=== PATIENT | male | born 1995 | race Caucasian/White ===

== ENCOUNTER 2021-03-11 10:06 | Outpatient (CLI) | payer OTHER, SELFPAY | END 2021-03-11 10:07 | disposition home or self-care (01) | LOC: ANHCOVIDVC 10:06 | DX: Z23 Encounter for immunization (principal) | CPT/HCPCS: 0001A; 91300 ==

== ENCOUNTER 2021-04-10 10:56 | Outpatient (CLI) | payer OTHER, SELFPAY | END 2021-04-10 10:57 | disposition home or self-care (01) | LOC: ANHCOVIDVC 10:57 | DX: Z23 Encounter for immunization (principal) | CPT/HCPCS: 0002A; 91300 ==

== ENCOUNTER 2021-12-06 08:13 | Emergency (ER) | payer OTHER, SELFPAY ==
--- NOTE | 2021-12-06 08:18 | ED.SKABFB ---
HPI - Skin/Abscess/Foreign Bdy General Chief complaint: Skin/Abscess/Foreign Body Stated complaint: rash Time Seen by Provider: 12/06/21 08:30 Source: patient and RN notes reviewed Mode of arrival: ambulatory Limitations: no limitations History of Present Illness HPI narrative: 26-year-old male presents with concern for a rash on his face. He reports a week ago he had an illness about a week ago and had sores in his mouth. Reports the illness has resolved and the sores inside of his mouth have resolved, however he now has scabbed sores with drainage on the outside of his mouth. Reports he has been using A&E ointment without relief. Reports the sores of started to spread and he has 1 on his buddhist. He denies swollen tongue, swollen lips, trouble breathing. MD complaint: rash Related Data Home Medications Medication Instructions Recorded Confirmed buprenorphine-naloxone 1 film SUBLINGUAL DAILY 12/06/21 12/06/21 Allergies Allergy/AdvReac Type Severity Reaction Status Date / Time No Known Allergies Allergy Verified 12/06/21 08:30 Review of Systems Review of Systems: CONSTITUTIONAL: Denies malaise, chills, sweats, or fever. EYES: Denies redness, or discharge. ENT: Denies rhinorrhea, congestion, swollen lips, swollen tongue CARDIOVASCULAR: Denies chest pain, palpitations, or edema. RESPIRATORY: Denies cough or dyspnea. GASTROINTESTINAL: Denies abdominal pain, nausea, vomiting SKIN: Reports rash to the face around the mouth MUSCULOSKELETAL: Denies joint painor myalgia. NEUROLOGIC: Denies headache. All systems reviewed & are unremarkable except as noted in HPI and below PMFSH Comments At time of signature, agree with nursing past medical, surgical, social and family history. There is no relevant family history pertinent to the presenting complaint Exam Narrative: GENERAL: Well-appearing, well-nourished, and in no acute distress. HEAD: Normocephalic, atraumatic. EYES: PERRLA, conjunctivae clear, and EOMI. ENT: Mucous membranes moist. Oropharynx without edema, erythema or lesions. NECK: Supple. No lymphadenopathy CHEST: Clear to auscultation. No respiratory distress. HEART: Regular rate and rhythm. SKIN: Warm, dry. Scattered discrete scabbed lesions with honey colored crust noted below the mouth, one satellite lesion to the right buddhist NEURO: Alert and oriented x3. PSYCH: Normal mood and affect Course Course Emergency Course: Patient is aware of diagnosis, understands and agrees to treatment plan. Anticipatory guidance given. Patient agrees to follow-up as directed and is aware of reasons to seek care at the emergency department. Portions of this record may have been created with voice recognition software Level of Care: Express Care Visit Vital Signs Vital signs: Reviewed. MDM - Skin/Abscess/Foreign Bdy MDM Narrative Medical decision making narrative: Does not appear at this time to be erythema multiforme, bullous, SJS, TEN; no evidence at this time to suggest RMSF, endocarditis or Lyme disease; patient looks well, nontoxic and is tolerating oral intake; no neurologic signs or symptoms; no headache, photophobia or neck pain; afebrile; appropriate for initial outpatient treatment; discussed the importance of follow-up, patient agrees; question, viral exanthema, contact dermatitis, allergic dermatitis, eczema, urticaria, impetigo, herpes. No soft palate or uvula edema, no tongue, lip edema or other mucosal involvement, no respiratory compromise, no stridor, no wheezing, no wheezing, no history of syncope, no hypotension, no nausea, vomiting, or diarrhea. Instructed patient to go to nearest ER immediately for any worsening symptoms including but not limited to: fever, spreading rash, pain, sore throat, headache, dizziness, chest pain, trouble breathing, or any symptoms concerning to the patient. Critical Care Time Critical Care Time Critical Care Time: No Discharge Plan Discharge Clinical Impression: Impetig
[2021-12-06 08:21] VITALS: BP 143/74; PULSE 92; RESP 16; TEMP 35.9; O2SAT 99
[2021-12-06 08:23] VITALS: BP 143/74; PULSE 92; RESP 16; TEMP 35.9; O2SAT 99
== END 2021-12-06 08:30 | disposition home or self-care (01) ==
PROVIDERS: Emergency Provider Nurse Practitioner
DX: L01.00 Impetigo, unspecified (principal)
CPT/HCPCS: 99213; G0463

== ENCOUNTER 2024-07-03 07:34 | Emergency (ER) | payer OTHER, SELFPAY ==
[2024-07-03 07:45] VITALS: BP 129/73; PULSE 95; RESP 14; TEMP 36.8; O2SAT 100
[2024-07-03 08:01] LABS: Basophils Percent Auto 0.4 % (0.2-1.2); Hematocrit 45.7 % (42.0-52.0); Hemoglobin 15.6 g/dL (14.0-18.0); Immature Granulocyte Absolute 0.05 K/mm3 (0.00-0.031); Immature Granulocyte Percent A 0.5 % (0-0.5); Lymphocytes Absolute Auto 0.96 K/mm3 (0.9-3.2); Lymphocytes Percent Auto 9.6 % (18.3-44.2); Mean Corpuscular HGB Conc 34.1 g/dl (32-36); Mean Corpuscular Hemoglobin 30.6 pg (26-34); Mean Corpuscular Volume 89.8 fl (80-100); Mean Platelet Volume 10.5 fl (7.4-10.4); Monocytes Absolute Auto 0.4 K/mm3 (0.1-0.6); Neutrophils Absolute Auto 8.5 K/mm3 (1.3-6.7); Neutrophils Percent Auto 85.5 % (45.5-73.1); Platelet Count Result 341 k/mm3 (150-375); Red Blood Count 5.09 M/mm3 (4.6-6.20); Red Cell Distribution Width 12.8 % (11.5-14.5)
--- NOTE | 2024-07-03 08:05 | ED.NAVMDI ---
HPI - Nausea/Vomiting/Diarrhea General Chief complaint: Nausea/Vomiting/Diarrhea Stated complaint: nausea,vomiting, diarrhea Time Seen by Provider: 07/03/24 08:02 History of Present Illness HPI Narrative: Pt presents with nausea and vomiting and diarrhea. Pt says he has been experiencing this off and on for two years and is seeing Dr Lance a GI doctor for this but has not yet come up with a cause. Pt has had numerous episodes of vomiting and diarrhea over the last three days and is having trouble keeping anything down. Pt denies fever. Related Data Home Medications Medication Instructions Recorded Confirmed buprenorphine 4 mg-naloxone 1 mg 1 film sublingual DAILY 12/06/21 12/06/21 sublingual film Allergies Allergy/AdvReac Type Severity Reaction Status Date / Time No Known Allergies Allergy Verified 07/03/24 08:06 Review of Systems Review of Systems: All systems reviewed & are unremarkable except as noted in HPI and below Exam Const: General: healthy appearing and no acute distress Nutritional Appearance: well nourished Orientation/consciousness: patient oriented x3 Limitations: no limitations HENMT: Mouth: Yes dry mucous membranes Neck: Neck: normal visual inspection Chest: Chest palpation & inspection: normal inspection of the chest Resp: Effort & Inspection: normal respiratory effort Auscultation: clear to auscultation bilaterally Cardio: Rate: regular rate Rhythm: regular rhythm GI: GI Palp: Yes Soft to palpation and No Tenderness to palpation present (GI) Auscultation: Hyperactive bowel sounds present Skin: General skin exam: normal color Rashes: no rashes Wounds: no wounds Neuro: General: patient oriented x3, moves all extremities, no meningeal signs, no focal motor deficits and CN's II-XI intact bilaterally Speech: normal speech Extrem: General: normal to inspection and no clubbing, cyanosis or edema Psych: Mental Status: mental status grossly normal Affect: normal affect Attitude: cooperative Course Vital Signs Vital signs: Vital Signs Temperature 98.3 F 07/03/24 07:45 Pulse Rate 95 07/03/24 07:45 Respiratory Rate 14 07/03/24 07:45 Blood Pressure 129/73 07/03/24 07:45 Pulse Oximetry 100 07/03/24 07:45 Temperature 98.3 F 07/03/24 07:45 Pulse Rate 93 07/03/24 09:54 Respiratory Rate 19 07/03/24 09:54 Blood Pressure 131/79 07/03/24 09:54 Pulse Oximetry 98 07/03/24 09:54 MDM - Nausea/Vomiting/Diarrhea MDM Narrative Medical decision making narrative: will give fluids and check labs and give zofran. not much relief with zofran but did get releif with compazine so will send home on compazine Differential Diagnosis Differential diagnosis: Likely food poisoning, gastroenteritis, dehydration and other (IBS, crohn's UC all possible) Lab Data 07/03/24 07:51 07/03/24 07:51 Labs: Lab Results 07/03/24 07/03/24 Range/Units 07:51 08:14 WBC 10.0 (4.5-10.0) K/mm3 RBC 5.09 (4.6-6.20) M/mm3 Hgb 15.6 (14.0-18.0) g/dL Hct 45.7 (42.0-52.0) % MCV 89.8 (80-100) fl MCH 30.6 (26-34) pg MCHC 34.1 (32-36) g/dl RDW 12.8 (11.5-14.5) % Plt Count 341 (150-375) k/mm3 MPV 10.5 H (7.4-10.4) fl Immature Gran % (Auto) 0.5 (0-0.5) % Neut % (Auto) 85.5 H (45.5-73.1) % Lymph % (Auto) 9.6 L (18.3-44.2) % [place] % (Auto) 4.0 (2.6-8.5) % Eos % (Auto) 0.0 (0-4.4) % Baso % (Auto) 0.4 (0.2-1.2) % Lymph # (Auto) 0.96 (0.9-3.2) K/mm3 [place] # (Auto) 0.4 (0.1-0.6) K/mm3 Eos # (Auto) 0.0 (0-0.3) K/mm3 Baso # (Auto) 0.0 (0.0-0.1) K/mm3 Abs Immat Gran (auto) 0.05 H (0.00-0.031) K/mm3 Absolute Neuts (auto) 8.5 H (1.3-6.7) K/mm3 Absolute Nucleated RBC 0.000 (0.0-0.012) K/mm3 Nucleated RBC % 0.0 (0.0-0.2) % Sodium 138 (137-145) mmol/L Potassium 3.2 L (3.4-5.0) mmol/L Chloride 95 L (98-107) mmol/L Carbon Dioxide 30 (22-30) mmol/L Ani
[2024-07-03 08:13] LABS: Alanine Aminotransferase 47 U/L (6-50); Albumin Level 4.8 g/dL (3.5-5.1); Alkaline Phosphatase 88 U/L (38-126); Anion Gap 13 mmol/L (4-12); Aspartate Amino Transferase 45 U/L (17-59); Bilirubin,Total 0.7 mg/dL (0.2-1.3); Blood Urea Nitrogen 17 mg/dL (9-20); Calcium 9.5 mg/dL (8.4-10.2); Carbon Dioxide 30 mmol/L (22-30); Chloride 95 mmol/L (98-107); Estimated Glomerular Filt Rate > 60; Glucose 116 mg/dL (65-110); Lipase 117 U/L (23-300); Potassium 3.2 mmol/L (3.4-5.0); Sodium 138 mmol/L (137-145)
[2024-07-03] MEDS: SODIUM CHLORIDE 0.9% IV 1,000 ML 999 ML IV CONT (08:15)
[2024-07-03] MEDS: ONDANSETRON INJ 4 MG/2 ML VIAL IV PUSH (08:15)
[2024-07-03 08:36] LABS: Add Urine Microscopic? YES; Appearance Urine Cloudy (Clear); Bacteria Urine None Seen /hpf; Bilirubin Urine Negative (Negative); Blood Urine Negative (Negative); Color Urine Dark Yellow (Yellow); Glucose Urine UA Negative (Negative); Ketones Urine 3+ mg/dL (Negative); Leukocyte Esterase Ur Negative LEU/UL (Negative); Need Manual Microscopic Reviewed; Nitrate Urine Negative (Negative); Non Pathogenic Casts 0-2; Protein Urine 1+ mg/dL (Negative); Specific Grav Ur 1.035 (1.001-1.035); Squamous Epithelial Cell Urine None Seen /hpf (Few); WBC Urine 0-5 /hpf (0-3); pH Urine 6.5 (5.0-9.0)
[2024-07-03] MEDS: PROCHLORPERAZINE EDISYLATE 10 MG/2 ML VIAL IV PUSH (09:01)
[2024-07-03 09:54] VITALS: BP 131/79; PULSE 93; RESP 19; O2SAT 98
== END 2024-07-03 09:56 | disposition home or self-care (01) ==
PROVIDERS: Emergency Provider Emergency Medicine
DX: K52.9 Noninfective gastroenteritis and colitis, unspecified (principal)
CPT/HCPCS: 36415; 80053; 81001; 83690; 85025; 96361; 96374; 96375; 99284; J0780; J2405; J7030

== ENCOUNTER 2024-10-09 22:07 | Observation (INO) | payer OTHER, SELFPAY ==
--- NOTE | ~2024-10-09 | XR_ITS ---
EXAMINATION: XR chest 1V portable DATE: 10/09/2024 23:54 INDICATION: Altered mental status. TECHNIQUE: A single frontal view of the chest was obtained. COMPARISON: Chest 2 views 12/07/2005 FINDINGS: There is no pneumonia, pleural effusion, or pneumothorax. The heart size is normal. IMPRESSION: 1. No acute cardiopulmonary disease. Reviewed, dictated and finalized at location A. SPORT CONDUCTOR
--- NOTE | ~2024-10-09 | CT_ITS ---
EXAMINATION: CT brain wo con DATE: 10/09/2024 23:53 INDICATION: Altered mental status. TECHNIQUE: Computed tomography (CT) of the head was performed without intravenous contrast. The mA wa s adjusted according to patient size. Iterative reconstruction technique was employed. The dose-lengt h product was 681.00 mGy-cm. COMPARISON: Head CT 02/14/2018 FINDINGS: There is no intracranial hemorrhage, acute infarction, or abnormal intracranial mass lesion . The ventricles are normal in size. The orbits are normal. The mastoid air cells are normal. The par anasal sinuses are clear. IMPRESSION: 1. Normal brain. Reviewed, dictated and finalized at location A. TERIA ASSOCIATE IMPRESSION: 1. Normal brain.
[2024-10-09 22:13] VITALS: BP 95/63; PULSE 144; RESP 15; TEMP 37.6; O2SAT 99
--- NOTE | 2024-10-09 22:37 | PC.NURSE ---
Pts parents at bedside, pt and parents both agree that pts symptoms have been present on and off for a few years . Pt has been restless and agitated since Wednesday. Pts mother states he has not slept since Wednesday. Pt says he has had increased sweating and sleep walking.
[2024-10-09 22:41] VITALS: PULSE 124; RESP 22; O2SAT 97
--- NOTE | 2024-10-09 22:44 | ECG_ITS ---
Test Date: 2024-10-09 23:41:26 Measurements Intervals [place] Rate: 120 P: 52 IN: 123 QRS: 55 QRSD: 90 T: 38 QT: 342 QTc: 485 Interpretive Statements SINUS TACHYCARDIA BORDERLINE ST-T WAVE ABNORMALITY- INFERIOR LEADS ABNORMAL ECG No previous ECG available for comparison Electronically Signed On 10-10-2024 05:56:06 [employer] EXAMINER by Zeferino Fagan D.O.
[2024-10-09] MEDS: LORazepam INJ (*CRX) 2 MG/ML VIAL 1 MG IV PUSH (23:02)
[2024-10-09 23:04] LABS: Basophils Absolute Auto 0.1 K/mm3 (0.0-0.1); Basophils Percent Auto 0.7 % (0.2-1.2); Eosinophils Percent Auto 0.2 % (0-4.4); Immature Granulocyte Absolute 0.04 K/mm3 (0.00-0.031); Immature Granulocyte Percent A 0.3 % (0-0.5); Lymphocytes Percent Auto 12.1 % (18.3-44.2); Mean Corpuscular HGB Conc 36.1 g/dl (32-36); Mean Corpuscular Volume 85.7 fl (80-100); Mean Platelet Volume 10.9 fl (7.4-10.4); Monocytes Absolute Auto 1.5 K/mm3 (0.1-0.6); Monocytes Percent Auto 9.7 % (2.6-8.5); Neutrophils Absolute Auto 11.5 K/mm3 (1.3-6.7); Platelet Count Result 290 k/mm3 (150-375); Red Cell Distribution Width 12.5 % (11.5-14.5); White Blood Count 14.9 K/mm3 (4.5-10.0)
[2024-10-09 23:21] LABS: Acetaminophen < 10 ug/mL (10-30); Ethanol < 10 mg/dL (<10); Salicylate < 1.0 mg/dL (2-20)
[2024-10-09] MEDS: HALOPERIDOL LACTATE 5 MG/ML VIAL IM (23:21)
[2024-10-09 23:27] LABS: Alanine Aminotransferase 39 U/L (6-50); Albumin Level 4.7 g/dL (3.5-5.1); Alkaline Phosphatase 122 U/L (38-126); Anion Gap 12 mmol/L (4-12); Aspartate Amino Transferase 85 U/L (17-59); Bilirubin,Total 1.4 mg/dL (0.2-1.3); Blood Urea Nitrogen 20 mg/dL (9-20); Calcium 9.6 mg/dL (8.4-10.2); Carbon Dioxide 27 mmol/L (22-30); Chloride 98 mmol/L (98-107); Estimated CRCL calculation 82 ml/min; Estimated Glomerular Filt Rate > 60; Glucose 54 mg/dL (65-110); Potassium 3.7 mmol/L (3.4-5.0); Sodium 137 mmol/L (137-145)
--- NOTE | 2024-10-09 23:30 | PC.NURSE ---
Pt sedated but is still tachycardic in the 120's, pt legs are also shaking involuntarily. Lian CORRIGAN Notified
--- NOTE | 2024-10-09 23:32 | ED_ITS ---
HPI - Psych General Chief Complaint: Psychiatric Symptoms <AYLEEN Montaño Last Filed: 10/10/24 01:46> Stated Complaint: PSYCHIATRIC EVALUATION <AYLEEN Montaño Last Filed: 10/10/24 01:46> Time Seen by Provider: 10/09/24 22:15 <AYLEEN Montaño Last Filed: 10/10/24 01:46> History of Present Illness HPI Narrative: 29-year-old male presents to the ED from home with parents at bedside for anxiety and difficulty sleeping. Patient's parents assist with history. States the patient is an anxious person and has ?spells? intermittently where he becomes increasingly more agitated, anxious and has difficulty sleeping. He began having the symptoms Wednesday and has been unable to sleep since. Today the symptoms became so significant that the patient came to the ED for further evaluation. He is unable to stop moving. 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 States he has not used in about 5 years. He denies alcohol use. He sees a psychiatrist with chest not and last had medications changed a couple months ago where he had clonidine added on to his regimen. He also was recently started on Lexapro after he discontinued an different anxiety medication (name unknown.) Patient states he has no physical complaints other than feeling sore from constant movement. Patient's mother states that the patient seemed confused this evening which is abnormal. <AYLEEN Montaño Last Filed: 10/10/24 01:46> Related Data Home Medications: Home Medications Medication Instructions Recorded Confirmed buprenorphine 4 mg-naloxone 1 mg 1 film sublingual DAILY 12/06/21 10/10/24 sublingual film clonidine HCl 0.1 mg tablet 0.1 mg PO BID 10/10/24 10/10/24 escitalopram oxalate 10 mg tablet 10 mg PO DAILY 10/10/24 10/10/24 hydroxyzine HCl 50 mg tablet 50 mg PO HS PRN insomnia 10/10/24 10/10/24 <AYLEEN Montaño Last Filed: 10/10/24 01:46> Allergies/Adverse Reactions: Allergies Allergy/AdvReac Type Severity Reaction Status Date / Time gluten AdvReac Diarrhea Verified 10/10/24 01:51 <Ely Miranda PA-C - Last Filed: 10/10/24 01:46> Review of Systems Review of Systems: All systems reviewed & are unremarkable except as noted in HPI and below <Ely Miranda PA-C - Last Filed: 10/10/24 01:46> PMFSH Social History Social History: Social History Smoking status: Current every day smoker Tobacco type: cigarettes and e-cigarettes/vaping Additional smoking assessment comments: no longer uses cigarettes; currently vapes Alcohol intake: never Substance use: former Substance use type: heroin Other substance usage details: fentanyl Spiritual care concerns: No <Ely Miranda PA-C - Last Filed: 10/10/24 01:46> Exam Narrative: GENERAL: Anxious appearing, diffuse akathesia, patient writhin in exam bed, diaphoretic, flushed face HEAD: Normocephalic, atraumatic. EYES: PERRLA and EOMI. ENT: Nares clear, no rhinorrhea or epistaxis. Mucous membranes moist. NECK: Supple. CHEST: Clear to auscultation. No respiratory distress. HEART: Regular rate and rhythm. No murmur heard. Normal peripheral pulses. ABDOMEN: Soft, nontender, nondistended, normal active bowel sounds. EXTREMITIES: Normal range of motion. No edema. Positive clonus bilaterally. Negative Babinski SKIN: Warm, dry, no rash. NEURO: No focal deficits. Alert and oriented x3. Denies SI/HI <Ely Miranda PA-C - Last Filed: 10/10/24 01:46> Course TEXTILES SALES REPRESENTATIVE/PA Physician Supervision For this patient encounter, I reviewed the TEXTILES SALES REPRESENTATIVE or PA documentation, treatment plan, and medical decision making and had [id number] time with this patient. I performed all aspects of the MDM as documented. <Jaymie Beaver MD - Last Filed: 10/10/24 07:24> Vital Signs Vital signs: Vital Signs Temperature 99.7 F H 10/09/24 22:13 Pulse Rate 144 H 10/09/24 22:13 Respiratory Rate 15 10/09/24 22:13 Blood Pressure 95/63 L 10/09/24 22:13 Pulse Oximetry 99 10/09/24 22:13 Oxygen Delivery Room Air 10/09/24 22:13 Temperature 98.6 F 10/10/24 04:00 Pulse Rate 113 H 10/10/24 05:56 Respiratory Rate 24 H 10/10/24 04:00 Blood Pressure 152/86 H 10/10/24 04:00 Pulse Oximetry 95 10/10/24 04:00 Oxygen Delivery Room Air 10/10/24 04:00 <Ely Miranda PA-C - Last Filed: 10/10/24 01:46> Vital Signs Temperature 99.7 F H 10/09/24 22:13 Pulse Rate 144 H 10/09/24 22:13 Respiratory Rate 15 10/09/24 22:13 Blood Pressure 95/63 L 10/09/24 22:13 Pulse Oximetry 99 10/09/24 22:13 Oxygen Delivery Room Air 10/09/24 22:13 Temperature 98.6 F 10/10/24 04:00 Pulse Rate 113 H 10/10/24 05:56 Respiratory Rate 24 H 10/10/24 04:00 Blood Pressure 152/86 H 10/10/24 04:00 Pulse Oximetry 95 10/10/24 04:00 Oxygen Delivery Room Air 10/10/24 04:00 <Jaymie Beaver MD - Last Filed: 10/10/24 07:24> MDM - Psych MDM Narrative Medical decision making narrative: 29-year-old male with history of substance abuse, anxiety and depression presents to the ED with family at bedside for anxiety and inability to sleep for the past few days. Patient's vital signs are significant for soft blood pressure 95/63 tachycardia 144 as well as temperature 99.7?. He is very anxious appearing on exam with diffuse akathisia. He is diaphoretic and writhing in the exam bed. The patient is flushed in the face. Denies SI or HI. Denies drug and ETOH use. He was immediately given Ativan without improvement and then was given IM Haldol for which caused him to fall asleep, however he was still having slight movements of his lower extremities. He has positive clonus bilaterally. I am concerned for possible serotonin syndrome vs drug abuse vs ETOH withdrawal. Will obtain lab work, CT brain, chest x-ray urinalysis and plan for admission. Lab work shows leukocytosis of 14.9, no bandemia. Chemistries reveal hypoglycemia of 54. Patient is now asleep in unable to tolerate p.o., he was started on D5 normal saline with improvement of glucose to 234. Chemistries with elevated AST, normal ALT, bilirubin mildly elevated at 1.4. Alk-phos normal. Mag is normal. TSH mildly low at 0.346, reflex T4 WNL. Acetaminophen, salicylate and ETOH within normal limits EKG shows sinus tachycardia with a rate of 120, normal NH interval, normal QRS duration, no ischemic changes. Troponin undetectable. CT brain is unremarkable. Chest x-ray shows no acute cardiopulmonary findings. UDS positive for cannabinoids and amphetamine. CK is elevated to 2368 consistent with rhabdomyolysis. Patient is given another L of fluids. His heart rate has improved to 110 bpm. Temperature has improved. He does meet SIRS criteria with leukocytosis and persistent tachycardia so was started on Zosyn and vancomycin, although no source yet identified. He has received 30mls/kg of fluids. He appears to be more comfortable in bed and is still asleep. Airway remains protected. Presentation likely secondary to amphetamine abuse. Plan admit to the hospitalist for further evaluation and management. Discussed with the hospitalist, Dr. Bettencourt, who agrees the plan for admission. <Ely Miranda PA-C - Last Filed: 10/10/24 01:46> Lab Data Result diagrams: 10/09/24 22:57 10/09/24 22:57 <Ely Miranda PA-C - Last Filed: 10/10/24 01:46> Labs: Lab Results 10/09/24 10/10/24 10/10/24 Range/Units 22:57 00:12 00:24 WBC 14.9 H (4.5-10.0) K/mm3 RBC 4.20 L (4.6-6.20) M/mm3 Hgb 13.0 L (14.0-18.0) g/dL Hct 36.0 L (42.0-52.0) % MCV 85.7 (80-100) fl MCH 31.0 (26-34) pg MCHC 36.1 H (32-36) g/dl RDW 12.5 (11.5-14.5) % Plt Count 290 (150-375) k/mm3 MPV 10.9 H (7.4-10.4) fl Immature Gran % (Auto) 0.3 (0-0.5) % Neut % (Auto) 77.0 H (45.5-73.1) % Lymph % (Auto) 12.1 L (18.3-44.2) % [place] % (Auto) 9.7 H (2.6-8.5) % Eos % (Auto) 0.2 (0-4.4) % Baso % (Auto) 0.7 (0.2-1.2) % Lymph # (Auto) 1.80 (0.9-3.2) K/mm3 [place] # (Auto) 1.5 H (0.1-0.6) K/mm3 Eos # (Auto) 0.0 (0-0.3) K/mm3 Baso # (Auto) 0.1 (0.0-0.1) K/mm3 Abs Immat Gran (auto) 0.04 H (0.00-0.031) K/mm3 Absolute Neuts (auto) 11.5 H (1.3-6.7) K/mm3 Absolute Nucleated RBC 0.000 (0.0-0.012) K/mm3 Nucleated RBC % 0.0 (0.0-0.2) % Sodium 137 (137-145) mmol/L Potassium 3.7 (3.4-5.0) mmol/L Chloride 98 (98-107) mmol/L Carbon Dioxide 27 (22-30) mmol/L Anion Gap 12 (4-12) mmol/L BUN 20 (9-20) mg/dL Creatinine 1.00 (0.7-1.3) mg/dL Estim Creat Clear Calc 82 ml/min Estimated GFR > 60 (59 - ) Glucose 54 L* (65-110) mg/dL POC Capillary Glucose 234 H (65-105) mg/dl Lactic Acid (0.7-2.0) mmol/L Calcium 9.6 (8.4-10.2) mg/dL Magnesium 2.2 (1.6-2.3) mg/dL Total Bilirubin 1.4 H (0.2-1.3) mg/dL AST 85 H (17-59) U/L ALT 39 (6-50) U/L Alkaline Phosphatase 122 (38-126) U/L Total Creatine Kinase 2368 H (55-170) U/L Troponin I < 0.012 (0.000-0.034) ng/mL Total Protein 7.0 (6.3-8.2) g/dL Albumin 4.7 (3.5-5.1) g/dL TSH 0.346 L (0.465-4.680) uIU/mL Free T4 1.24 (0.78-2.19) ng/mL Urine Color Yellow (Yellow) Urine Appearance Cloudy H (Clear) Urine pH 5.5 (5.0-9.0) Ur Specific [place] 1.024 (1.001-1.035) Urine Protein Trace (Negative) mg/dL Urine Glucose (UA) Negative (Negative) mg/dL Urine Ketones 2+ H (Negative) mg/dL Ur Blood (Man) Negative (Negative) Urine Nitrate Negative (Negative) Urine Bilirubin Negative (Negative) Urine Urobilinogen 1.0 (<2.0) mg/dL Add Ur Microanalysis Reviewed Leukocyte Esterase Rfl Negative (Negative) TRINI/UL Urine RBC 0-2 (0-2) /hpf Urine WBC 0-5 (0-3) /hpf Ur Squamous Epith Cells None seen (Few) /hpf Urine Bacteria None seen /hpf Urine Casts 11-20 Salicylates < 1.0 L (2-20) mg/dL Urine Opiates Screen Negative (Negative) Urine Methadone Screen Negative (Negative) Acetaminophen < 10 L (10-30) ug/mL Ur Barbiturates Screen Negative (Negative) Ur Phencyclidine Scrn Negative (Negative) Ur Amphetamine Screen Positive A (Negative) U Benzodiazepines Scrn Negative (Negative) Urine Cocaine Screen Negative (Negative) U Cannabinoids Screen Positive A (Negative) Ethyl Alcohol < 10 (<10) mg/dL 10/10/24 Range/Units 01:08 WBC (4.5-10.0) K/mm3 RBC (4.6-6.20) M/mm3 Hgb (14.0-18.0) g/dL Hct (42.0-52.0) % MCV (80-100) fl MCH (26-34) pg MCHC (32-36) g/dl RDW (11.5-14.5) % Plt Count (150-375) k/mm3 MPV (7.4-10.4) fl Immature Gran % (Auto) (0-0.5) % Neut % (Auto) (45.5-73.1) % Lymph % (Auto) (18.3-44.2) % [place] % (Auto) (2.6-8.5) % Eos % (Auto) (0-4.4) % Baso % (Auto) (0.2-1.2) % Lymph # (Auto) (0.9-3.2) K/mm3 [place] # (Auto) (0.1-0.6) K/mm3 Eos # (Auto) (0-0.3) K/mm3 Baso # (Auto) (0.0-0.1) K/mm3 Abs Immat Gran (auto) (0.00-0.031) K/mm3 Absolute Neuts (auto) (1.3-6.7) K/mm3 Absolute Nucleated RBC (0.0-0.012) K/mm3 Nucleated RBC % (0.0-0.2) % Sodium (137-145) mmol/L Potassium (3.4-5.0) mmol/L Chloride (98-107) mmol/L Carbon Dioxide (22-30) mmol/L Anion Gap (4-12) mmol/L BUN (9-20) mg/dL Creatinine (0.7-1.3) mg/dL Estim Creat Clear Calc ml/min Estimated GFR (59 - ) Glucose (65-110) mg/dL POC Capillary Glucose (65-105) mg/dl Lactic Acid 0.7 (0.7-2.0) mmol/L Calcium (8.4-10.2) mg/dL Magnesium (1.6-2.3) mg/dL Total Bilirubin (0.2-1.3) mg/dL AST (17-59) U/L ALT (6-50) U/L Alkaline Phosphatase (38-126) U/L Total Creatine Kinase (55-170) U/L Troponin I (0.000-0.034) ng/mL Total Protein (6.3-8.2) g/dL Albumin (3.5-5.1) g/dL TSH (0.465-4.680) uIU/mL Free T4 (0.78-2.19) ng/mL Urine Color (Yellow) Urine Appearance (Clear) Urine pH (5.0-9.0) Ur Specific [place] (1.001-1.035) Urine Protein (Negative) mg/dL Urine Glucose (UA) (Negative) mg/dL Urine Ketones (Negative) mg/dL Ur Blood (Man) (Negative) Urine Nitrate (Negative) Urine Bilirubin (Negative) Urine Urobilinogen (<2.0) mg/dL Add Ur Microanalysis Leukocyte Esterase Rfl (Negative) TRINI/UL Urine RBC (0-2) /hpf Urine WBC (0-3) /hpf Ur Squamous Epith Cells (Few) /hpf Urine Bacteria /hpf Urine Casts Salicylates (2-20) mg/dL Urine Opiates Screen (Negative) Urine Methadone Screen (Negative) Acetaminophen (10-30) ug/mL Ur Barbiturates Screen (Negative) Ur Phencyclidine Scrn (Negative) Ur Amphetamine Screen (Negative) U Benzodiazepines Scrn (Negative) Urine Cocaine Screen (Negative) U Cannabinoids Screen (Negative) Ethyl Alcohol (<10) mg/dL <Ely Miranda PA-C - Last Filed: 10/10/24 01:46> Lab Results 10/09/24 10/10/24 10/10/24 Range/Units 22:57 00:12 00:24 WBC 14.9 H (4.5-10.0) K/mm3 RBC 4.20 L (4.6-6.20) M/mm3 Hgb 13.0 L (14.0-18.0) g/dL Hct 36.0 L (42.0-52.0) % MCV 85.7 (80-100) fl MCH 31.0 (26-34) pg MCHC 36.1 H (32-36) g/dl RDW 12.5 (11.5-14.5) % Plt Count 290 (150-375) k/mm3 MPV 10.9 H (7.4-10.4) fl Immature Gran % (Auto) 0.3 (0-0.5) % Neut % (Auto) 77.0 H (45.5-73.1) % Lymph % (Auto) 12.1 L (18.3-44.2) % [place] % (Auto) 9.7 H (2.6-8.5) % Eos % (Auto) 0.2 (0-4.4) % Baso % (Auto) 0.7 (0.2-1.2) % Lymph # (Auto) 1.80 (0.9-3.2) K/mm3 [place] # (Auto) 1.5 H (0.1-0.6) K/mm3 Eos # (Auto) 0.0 (0-0.3) K/mm3 Baso # (Auto) 0.1 (0.0-0.1) K/mm3 Abs Immat Gran (auto) 0.04 H (0.00-0.031) K/mm3 Absolute Neuts (auto) 11.5 H (1.3-6.7) K/mm3 Absolute Nucleated RBC 0.000 (0.0-0.012) K/mm3 Nucleated RBC % 0.0 (0.0-0.2) % Sodium 137 (137-145) mmol/L Potassium 3.7 (3.4-5.0) mmol/L Chloride 98 (98-107) mmol/L Carbon Dioxide 27 (22-30) mmol/L Anion Gap 12 (4-12) mmol/L BUN 20 (9-20) mg/dL Creatinine 1.00 (0.7-1.3) mg/dL Estim Creat Clear Calc 82 ml/min Estimated GFR > 60 (59 - ) Glucose 54 L* (65-110) mg/dL POC Capillary Glucose 234 H (65-105) mg/dl Lactic Acid (0.7-2.0) mmol/L Calcium 9.6 (8.4-10.2) mg/dL Magnesium 2.2 (1.6-2.3) mg/dL Total Bilirubin 1.4 H (0.2-1.3) mg/dL AST 85 H (17-59) U/L ALT 39 (6-50) U/L Alkaline Phosphatase 122 (38-126) U/L Total Creatine Kinase 2368 H (55-170) U/L Troponin I < 0.012 (0.000-0.034) ng/mL Total Protein 7.0 (6.3-8.2) g/dL Albumin 4.7 (3.5-5.1) g/dL TSH 0.346 L (0.465-4.680) uIU/mL Free T4 1.24 (0.78-2.19) ng/mL Urine Color Yellow (Yellow) Urine Appearance Cloudy H (Clear) Urine pH 5.5 (5.0-9.0) Ur Specific [place] 1.024 (1.001-1.035) Urine Protein Trace (Negative) mg/dL Urine Glucose (UA) Negative (Negative) mg/dL Urine Ketones 2+ H (Negative) mg/dL Ur Blood (Man) Negative (Negative) Urine Nitrate Negative (Negative) Urine Bilirubin Negative (Negative) Urine Urobilinogen 1.0 (<2.0) mg/dL Add Ur Microanalysis Reviewed Leukocyte Esterase Rfl Negative (Negative) TRINI/UL Urine RBC 0-2 (0-2) /hpf Urine WBC 0-5 (0-3) /hpf Ur Squamous Epith Cells None seen (Few) /hpf Urine Bacteria None seen /hpf Urine Casts 11-20 Salicylates < 1.0 L (2-20) mg/dL Urine Opiates Screen Negative (Negative) Urine Methadone Screen Negative (Negative) Acetaminophen < 10 L (10-30) ug/mL Ur Barbiturates Screen Negative (Negative) Ur Phencyclidine Scrn Negative (Negative) Ur Amphetamine Screen Positive A (Negative) U Benzodiazepines Scrn Negative (Negative) Urine Cocaine Screen Negative (Negative) U Cannabinoids Screen Positive A (Negative) Ethyl Alcohol < 10 (<10) mg/dL 10/10/24 Range/Units 01:08 WBC (4.5-10.0) K/mm3 RBC (4.6-6.20) M/mm3 Hgb (14.0-18.0) g/dL Hct (42.0-52.0) % MCV (80-100) fl MCH (26-34) pg MCHC (32-36) g/dl RDW (11.5-14.5) % Plt Count (150-375) k/mm3 MPV (7.4-10.4) fl Immature Gran % (Auto) (0-0.5) % Neut % (Auto) (45.5-73.1) % Lymph % (Auto) (18.3-44.2) % [place] % (Auto) (2.6-8.5) % Eos % (Auto) (0-4.4) % Baso % (Auto) (0.2-1.2) % Lymph # (Auto) (0.9-3.2) K/mm3 [place] # (Auto) (0.1-0.6) K/mm3 Eos # (Auto) (0-0.3) K/mm3 Baso # (Auto) (0.0-0.1) K/mm3 Abs Immat Gran (auto) (0.00-0.031) K/mm3 Absolute Neuts (auto) (1.3-6.7) K/mm3 Absolute Nucleated RBC (0.0-0.012) K/mm3 Nucleated RBC % (0.0-0.2) % Sodium (137-145) mmol/L Potassium (3.4-5.0) mmol/L Chloride (98-107) mmol/L Carbon Dioxide (22-30) mmol/L Anion Gap (4-12) mmol/L BUN (9-20) mg/dL Creatinine (0.7-1.3) mg/dL Estim Creat Clear Calc ml/min Estimated GFR (59 - ) Glucose (65-110) mg/dL POC Capillary Glucose (65-105) mg/dl Lactic Acid 0.7 (0.7-2.0) mmol/L Calcium (8.4-10.2) mg/dL Magnesium (1.6-2.3) mg/dL Total Bilirubin (0.2-1.3) mg/dL AST (17-59) U/L ALT (6-50) U/L Alkaline Phosphatase (38-126) U/L Total Creatine Kinase (55-170) U/L Troponin I (0.000-0.034) ng/mL Total Protein (6.3-8.2) g/dL Albumin (3.5-5.1) g/dL TSH (0.465-4.680) uIU/mL Free T4 (0.78-2.19) ng/mL Urine Color (Yellow) Urine Appearance (Clear) Urine pH (5.0-9.0) Ur Specific [place] (1.001-1.035) Urine Protein (Negative) mg/dL Urine Glucose (UA) (Negative) mg/dL Urine Ketones (Negative) mg/dL Ur Blood (Man) (Negative) Urine Nitrate (Negative) Urine Bilirubin (Negative) Urine Urobilinogen (<2.0) mg/dL Add Ur Microanalysis Leukocyte Esterase Rfl (Negative) TRINI/UL Urine RBC (0-2) /hpf Urine WBC (0-3) /hpf Ur Squamous Epith Cells (Few) /hpf Urine Bacteria /hpf Urine Casts Salicylates (2-20) mg/dL Urine Opiates Screen (Negative) Urine Methadone Screen (Negative) Acetaminophen (10-30) ug/mL Ur Barbiturates Screen (Negative) Ur Phencyclidine Scrn (Negative) Ur Amphetamine Screen (Negative) U Benzodiazepines Scrn (Negative) Urine Cocaine Screen (Negative) U Cannabinoids Screen (Negative) Ethyl Alcohol (<10) mg/dL <Jaymie Beaver MD - Last Filed: 10/10/24 07:24> Discharge Plan Discharge Clinical Impression: Marijuana use, Amphetamine abuse Rhabdomyolysis Qualifiers: Rhabdomyolysis type: non-traumatic Qualified Code(s): M62.82 - Rhabdomyolysis <Ely Miranda PA-C - Last Filed: 10/10/24 01:46> Patient Disposition: Still a Patient <Ely Miranda PA-C - Last Filed: 10/10/24 01:46> Condition: Stable <Ely Miranda PA-C - Last Filed: 10/10/24 01:46>
[2024-10-09] MEDS: DEXTROSE 5%/0.9% SOD CHL 1,000 ML 999 ML IV CONT (23:43)
[2024-10-09 23:53] LABS: Thyroid Stimulating Hormone 0.346 uIU/mL (0.465-4.680)
[2024-10-09 23:58] VITALS: BP 123/50; PULSE 118; RESP 13; O2SAT 95
[2024-10-10] VITALS (25 sets, daily range): BP systolic 93–152; BP diastolic 41–86; PULSE 96–144; RESP 12–24; TEMP 36.6–37; O2SAT 95–98; BMI 21.9
[2024-10-10 00:09] LABS: Magnesium 2.2 mg/dL (1.6-2.3)
[2024-10-10 00:17] LABS: Troponin I < 0.012 ng/mL (0.000-0.034)
[2024-10-10 00:26] LABS: Glucose Point of Care 234 mg/dl (65-105)
[2024-10-10] MEDS: SODIUM CHLORIDE 0.9% IV 1,000 ML 999 ML IV CONT (00:32)
[2024-10-10 01:07] LABS: Amphetamine Screen Urine Positive (Negative); Barbiturate Screen Urine Negative (Negative); Benzodiazepines Screen Urine Negative (Negative); Cannabinoid Screen Urine Positive (Negative); Cocaine Screen Urine Negative (Negative); Methadone Screen Urine Negative (Negative); Opiate Screen Urine Negative (Negative); Phencyclidine Screen Urine Negative (Negative)
[2024-10-10] MEDS: PIPERACILLN/TAZ 3.375GM/NS50ML 3.375 GM/50 ML BAG IVPB ×2 (01:11→05:52)
[2024-10-10 01:17] LABS: Creatine Kinase 2368 U/L (55-170)
[2024-10-10 01:25] LABS: Free T4 Free Thyroxine 1.24 ng/mL (0.78-2.19)
[2024-10-10 01:27] LABS: Add Urine Microscopic? YES; Appearance Urine Cloudy (Clear); Bacteria Urine None Seen /hpf; Bilirubin Urine Negative (Negative); Blood Urine Negative (Negative); Color Urine Yellow (Yellow); Glucose Urine UA Negative (Negative); Ketones Urine 2+ mg/dL (Negative); Leukocyte Esterase Ur Negative LEU/UL (Negative); Need Manual Microscopic Reviewed; Nitrate Urine Negative (Negative); Protein Urine Trace mg/dL (Negative); RBC Urine 0-2 /hpf (0-2); Specific Grav Ur 1.024 (1.001-1.035); Squamous Epithelial Cell Urine None Seen /hpf (Few); WBC Urine 0-5 /hpf (0-3); pH Urine 5.5 (5.0-9.0)
[2024-10-10] MEDS: VANCOMYCIN 1,500 MG/NS 500 ML 1,500 MG/500 ML BAG 250 MG IVPB (02:05)
[2024-10-10 02:18] LABS: Lactic Acid Reflex 0.7 mmol/L (0.7-2.0)
[2024-10-10] MEDS: LORazepam INJ (*CRX) 2 MG/ML VIAL 1 MG IV PUSH (03:49)
--- NOTE | 2024-10-10 04:23 | ADMGEN ---
This patient, Patricio Poon, was admitted to IMU Room 202-01. Patient/family oriented to hospital policies and general routines including ID bracelet, bed and alarms, visiting hours, pain management, procedures, bathroom and other care routines, personal items, smoking policy, room service/diet, and visiting hours. Information on how to activate the Rapid Response Team has been discussed. Patient/Family are encouraged to report perceived risks to care and to ask questions if they do not understand what they are told or what they should do.
[2024-10-10] MEDS: SODIUM CHLORIDE 0.9% IV 1,000 ML 150 ML (12:25)
--- NOTE | 2024-10-10 16:55 | P.HP_ITS ---
H&P: HPI History of Present Illness Date/Time: 10/10/24 16:55 Chief Complaint: Anxiety and agitation Narrative: ER-HPI Narrative: 29-year-old male presents to the ED from home with parents at bedside for anxiety and difficulty sleeping. Patient's parents assist with history. States the patient is an anxious person and has ?spells? intermittently where he becomes increasingly more agitated, anxious and has difficulty sleeping. He began having the symptoms Wednesday and has been unable to sleep since. Today the symptoms became so significant that the patient came to the ED for further evaluation. He is unable to stop moving. 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 States he has not used in about 5 years. He denies alcohol use. He sees a psychiatrist with chest not and last had medications changed a couple months ago where he had clonidine added on to his regimen. He also was recently started on Lexapro after he discontinued an different anxiety medication (name unknown.) Patient states he has no physical complaints other than feeling sore from constant movement. Patient's mother states that the patient seemed confused this evening which is abnormal Today patient does admit however urine drug tox is positive for amphetamine, and cannabis, taken few days back but not completely forthcoming, patient is quite apprehensive and agitated, patient is found to have rhabdomyolysis most likely secondary to amphetamine, will continue to hydrate the patient and monitor CK level, and electrolytes, help with withdrawal symptoms patient is on clonidine and lorazepam, patient's for mother and father are present also discussed with them and answered his questions. [facility] Social History Social History Smoking status: Current every day smoker Tobacco type: cigarettes and e-cigarettes/vaping Additional smoking assessment comments: no longer uses cigarettes; currently vapes Alcohol intake: never Substance use: former Substance use type: heroin Other substance usage details: fentanyl Spiritual care concerns: No Meds Home Medications and Allergies Home Medications Medication Instructions Recorded Confirmed Type buprenorphine 4 mg-naloxone 1 mg 1 film sublingual DAILY 12/06/21 10/10/24 History sublingual film clonidine HCl 0.1 mg tablet 0.1 mg PO BID 10/10/24 10/10/24 History escitalopram oxalate 10 mg tablet 10 mg PO DAILY 10/10/24 10/10/24 History hydroxyzine HCl 50 mg tablet 50 mg PO HS PRN insomnia 10/10/24 10/10/24 History Allergies Allergy/AdvReac Type Severity Reaction Status Date / Time gluten AdvReac Diarrhea Verified 10/10/24 01:51 Vital Signs Vital Signs - 24 hr 10/09/24 22:13 10/09/24 22:41 10/10/24 00:36 Temperature 37.6 C H 36.8 C Pulse Rate 144 H 124 H Respiratory Rate 15 22 H Blood Pressure 95/63 L Pulse Oximetry 99 97 Oxygen Delivery Room Air 10/09/24 23:58 10/10/24 00:30 10/10/24 00:31 Temperature Pulse Rate 118 H 107 H 117 H Respiratory Rate 13 12 12 Blood Pressure 123/50 L 101/46 L Pulse Oximetry 95 97 96 Oxygen Delivery 10/10/24 00:45 10/10/24 02:15 10/10/24 02:46 Temperature Pulse Rate 100 96 105 H Respiratory Rate 12 12 16 Blood Pressure 93/45 L 105/53 L 115/84 Pulse Oximetry Oxygen Delivery 10/10/24 03:01 10/10/24 03:51 10/10/24 04:00 Temperature Pulse Rate 106 H 120 H Respiratory Rate 15 22 H Blood Pressure 127/73 108/64 Pulse Oximetry 98 Oxygen Delivery Room Air 10/10/24 04:00 10/10/24 04:00 10/10/24 05:56 Temperature 37.0 C Pulse Rate 113 H 121 H 113 H Respiratory Rate 24 H Blood Pressure 152/86 H Pulse Oximetry 95 Oxygen Delivery 10/10/24 07:28 10/10/24 07:32 10/10/24 09:01 Temperature 36.8 C Pulse Rate 144 H Respiratory Rate 16 Blood Pressure 114/41 L 107/56 L Pulse Oximetry 96 96 Oxygen Delivery Room Air 10/10/24 08:00 10/10/24 08:00 10/10/24 10:00 Temperature Pulse Rate 122 H 122 H Respiratory Rate Blood Pressure Pulse Oximetry Oxygen Delivery Room Air 10/10/24 11:31 10/10/24 12:00 10/10/24 12:00 Temperature 36.8 C Pulse Rate 122 H 118 H Respiratory Rate 16 Blood Pressure 105/51 L Pulse Oximetry 98 Oxygen Delivery Room Air 10/10/24 15:29 Temperature 36.6 C Pulse Rate 128 H Respiratory Rate 20 Blood Pressure 115/59 L Pulse Oximetry 97 Oxygen Delivery Exam Narrative: Patient is comfortable, NAD HEENT: eyes are clear and none icteric LUNGS:CTA HEART: RR S1S2 ABD: BS+, Soft and nontender Lower extremities: no edema SKIN: nonjaundiced Neuro: grossly intact. H&P: Results Labs Labs: Short CBC 10/09/24 Range/Units 22:57 WBC 14.9 H (4.5-10.0) K/mm3 Hgb 13.0 L (14.0-18.0) g/dL Hct 36.0 L (42.0-52.0) % Plt Count 290 (150-375) k/mm3 BMP 10/09/24 22:57 Sodium 137 Potassium 3.7 Chloride 98 Carbon Dioxide 27 BUN 20 Creatinine 1.00 Glucose 54 L* Calcium 9.6 Cardiac Enzymes 10/09/24 Range/Units 22:57 Total Creatine Kinase 2368 H (55-170) U/L Troponin I < 0.012 (0.000-0.034) ng/mL Liver Function 10/09/24 Range/Units 22:57 Total Bilirubin 1.4 H (0.2-1.3) mg/dL AST 85 H (17-59) U/L ALT 39 (6-50) U/L Alkaline Phosphatase 122 (38-126) U/L Albumin 4.7 (3.5-5.1) g/dL Urine 10/10/24 Range/Units 00:24 Urine Color Yellow (Yellow) Urine Appearance Cloudy H (Clear) Urine pH 5.5 (5.0-9.0) Ur Specific Otter 1.024 (1.001-1.035) Urine Protein Trace (Negative) mg/dL Urine Glucose (UA) Negative (Negative) mg/dL Assessment and Plan Assessment and plan (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, uncomplicated Status: Acute (2) Marijuana use: Code(s): F12.90 - Cannabis use, unspecified, uncomplicated Status: Acute (3) Rhabdomyolysis: Qualifiers: Rhabdomyolysis type: non-traumatic Qualified Code(s): M62.82 - Rhabdomyolysis Code(s): M62.82 - Rhabdomyolysis Status: Acute Plan Today patient does admit however urine drug tox is positive for amphetamine, and cannabis, taken few days back but not completely forthcoming, patient is quite apprehensive and agitated, patient is found to have rhabdomyolysis most likely secondary to amphetamine, will continue to hydrate the patient and monitor CK level, and electrolytes, help with withdrawal symptoms patient is on clonidine and lorazepam, patient's for mother and father are present also discussed with them and answered his questions.
[2024-10-10] MEDS: BUPRENORPHINE/NALOXONE (*CRX) 4 MG/1 MG SL FILM 1 EACH SUBLINGUAL (18:59)
[2024-10-10] MEDS: cloNIDine HCL 0.1 MG TABLET PO (19:00)
[2024-10-10] MEDS: SODIUM CHLORIDE 0.9% IV 1,000 ML 150 ML IV CONT (19:01)
[2024-10-11] VITALS (10 sets, daily range): BP systolic 115–124; BP diastolic 52–83; PULSE 103–126; RESP 20; TEMP 36.6–37.1; O2SAT 97–100
[2024-10-11] MEDS: SODIUM CHLORIDE 0.9% IV 1,000 ML 150 ML IV CONT (01:29)
[2024-10-11 04:16] LABS: Hematocrit 35.2 % (42.0-52.0); Hemoglobin 11.8 g/dL (14.0-18.0); Mean Corpuscular HGB Conc 33.5 g/dl (32-36); Mean Corpuscular Hemoglobin 30.3 pg (26-34); Mean Corpuscular Volume 90.5 fl (80-100); Platelet Count Result 203 k/mm3 (150-375); Red Blood Count 3.89 M/mm3 (4.6-6.20); Red Cell Distribution Width 13.2 % (11.5-14.5); White Blood Count 10.6 K/mm3 (4.5-10.0)
[2024-10-11 04:38] LABS: Alanine Aminotransferase 36 U/L (6-50); Albumin Level 3.2 g/dL (3.5-5.1); Alkaline Phosphatase 82 U/L (38-126); Anion Gap 7 mmol/L (4-12); Aspartate Amino Transferase 48 U/L (17-59); Blood Urea Nitrogen 6 mg/dL (9-20); Calcium 7.9 mg/dL (8.4-10.2); Carbon Dioxide 26 mmol/L (22-30); Chloride 105 mmol/L (98-107); Creatine Kinase 560 U/L (55-170); Estimated CRCL calculation 144 ml/min; Estimated Glomerular Filt Rate > 60; Glucose 65 mg/dL (65-110); Magnesium 1.9 mg/dL (1.6-2.3); Sodium 138 mmol/L (137-145)
[2024-10-11] MEDS: ESCITALOPRAM OXALATE 10 MG TABLET PO (08:22)
[2024-10-11] MEDS: cloNIDine HCL 0.1 MG TABLET PO (08:22)
[2024-10-11] MEDS: POTASSIUM CHLORIDE 20 MEQ ER TABLET 40 MEQ PO (08:22)
[2024-10-11] MEDS: SODIUM CHLORIDE 0.9% IV 1,000 ML 75 ML IV CONT (08:26)
[2024-10-11] MEDS: BUPRENORPHINE/NALOXONE (*CRX) 4 MG/1 MG SL FILM 1 EACH SUBLINGUAL (08:26)
--- NOTE | 2024-10-11 12:18 | P.DS_ITS ---
DS: Admitting Diagnosis Discharge Date 10/11/24 Admitting Diagnosis Anxiety and agitation. 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 Please see H&P for details. Hospital Course: Patient presents to the ED. Vital signs showing soft BP (95/63) and tachycardia (144). He was afebrile. He was anxious with diffuse akathisia, diaphoresis and with facial flushing. He denied SI or HI. He was given Ativan without improvement but able to fall asleep after IM Haldol. WBC was 14.9K that improved on repeat. CMP normal except glucose of 54, TBili 1.4 and AST 85. Total CK was 2368. TSH mildly low at 0.346, reflex T4 WNL. Acetaminophen, salicylate and ETOH within normal limits. UDS positive for cannabinoids and amphetamine. EKG shows sinus tachycardia with a rate of 120, normal NJ interval, normal QRS duration, no ischemic changes. Troponin undetectable. CT brain is unremarkable. CXR shows no acute cardiopulmonary findings. Patient is given IV fluids. He was given IV abx in the ED for concern for sepsis since he met criteria for SIRS. BCx NGTD. Abx were not continued. His heart rate has improved. He does admit to taking a pill given to him by a co-worker 'to get me through the shift'. His total CK level dropped to 560. He feels much better. He is eating. no n/v. No other symptoms. He was educated about the beenfits of abstaining from illegal drug use. Mother was in the room with patient's permission. He overall did well and was able to bne discharged home on 10/11/24. Status at Discharge Cognitive/behavioral status at discharge: stable Time Spent with Patient Time attestation: Total time spent providing and/or coordinating discharge services: 32 minutes Time spent: Greater than 30 minutes Exam Narrative: AF 98.0 121/72 114 20 100% ra Gen - NARD Chest - CTA bilaterally, nml RR CV - mildly tachycardic, regular; Tele showing sinus tach around 100-110 Abd - Soft, NT/ND, Positive BS Ext - No pedal edema Psych - Nml mood and affect. calma nd cooperative. Skin - Warm and dry. a few minor facial eschars but no evidence of cellulitis (one is at the base of the right nares) DS: Data Data Completed and Pending Labs on day of discharge: Labs from last 24 hours 10/11/24 03:52 WBC 10.6 H RBC 3.89 L Hgb 11.8 L Hct 35.2 L MCV 90.5 D MCH 30.3 MCHC 33.5 RDW 13.2 Plt Count 203 MPV 11.0 H Sodium 138 Potassium 3.0 L Chloride 105 Carbon Dioxide 26 Anion Gap 7 BUN 6 L D Creatinine 0.60 L Estim Creat Clear Calc 144 Estimated GFR > 60 Glucose 65 Calcium 7.9 L Magnesium 1.9 Total Bilirubin 1.0 AST 48 ALT 36 Alkaline Phosphatase 82 Total Creatine Kinase 560 H Total Protein 6.0 L Albumin 3.2 L Preliminary micro results at discharge 10/10/24 01:08 Blood Culture - Preliminary Blood 10/10/24 01:08 Blood Culture - Preliminary Blood Discharge Plan Discharge Attending physician on discharge: Hilton Farrell Discharging Clinician: Hilton Farrell Anticipated Discharge Date/Time: 10/11/24 12:34 Patient Disposition: Home, Self-Care Activity: as tolerated Diet: regular Discharge Instructions: Please abstain from illegal drug use. Please re-connect with your sponsor at Drink plenty of fluid for the next 1-2 days. Do not pick at facial scabs. Allow to dry. Okay to wash face with soap and water. Contact your doctor or call 911 and come to the Emergency Room if you have worsening panic attacks, facial redness or other worrisome symptoms. Follow-up with your primary care provider in 1-2 weeks. Please call for appointment. Follow-up with your psychiatrist or psychologist in 1-2 weeks. Please call for appointment. Thank you for using [facility] for your health care needs. Patient Instructions: Antibiotic Form, Pain Management (DC) Stand Alone Forms: General Discharge Information Follow-up/Referrals: Demi,MEENU Bro [Primary Care Provider] - Call for Appointment Discharge Medications: Continued buprenorphine-naloxone 4-1 mg film 1 film sublingual DAILY clonidine HCl 0.1 mg tablet 0.1 mg PO BID hydroxyzine HCl 50 mg tablet 50 mg PO HS PRN (Reason: insomnia) escitalopram oxalate 10 mg tablet 10 mg PO DAILY Date of admission: 10/10/24 01:46 Primary Care Provider: DemiAdali Admitting Provider: Marya Bettencourt V. Attending physician on admission: Marya Bettencourt V. Condition: Stable
--- NOTE | 2024-10-17 08:02 | PC.NURSE ---
Blood cx are negative. Dr. Jami vail.
== END 2024-10-11 13:22 | disposition home or self-care (01) ==
LOC: ANHED 10-10 01:42 → ANHIMU 10-10 03:29
PROVIDERS: Family Medicine; Admitting Provider Internal Medicine; Emergency Provider Physician Assistant; PCP Physician Assistant; Visit Provider Internal Medicine
DX: F15.10 Other stimulant abuse, uncomplicated (principal); F12.90 Cannabis use, unspecified, uncomplicated; M62.82 Rhabdomyolysis; F41.9 Anxiety disorder, unspecified; F32.A Depression, unspecified; F17.290 Nicotine dependence, other tobacco product, uncomplicated; Z79.899 Other long term (current) drug therapy
CPT/HCPCS: 36415; 70450; 71045; 80053; 80143; 80179; 80307; 81001; 82077; 82550; 82948; 83605; 83735; 84439; 84443; 84484; 85025; 85027; 87040; 93005; 96361; 96365; 96366; 96372; 96374; 96375; 99285; A9270; G0378; G0379; J1630; J2060; J2543; J3370; J7030; J7042

== ENCOUNTER 2025-04-03 19:51 | Inpatient (IN) | payer BC, OTHER, SELFPAY ==
--- NOTE | ~2025-04-03 | CT_ITS ---
CT OF right hand EXAMINATION: CT hand RT w con DATE: 04/03/2025 22:08 INDICATION: Pain and swelling. TECHNIQUE: Computed tomography (CT) of the right hand was performed 100 mL Omnipaque 350 intravenous contrast. Automated exposure control and iterative reconstruction technique were employed. The dose-l ength product was 473.11 mGy-cm. COMPARISON: X-ray right hand, same date FINDINGS: Limitations: None Bones: The included osseous structures are within normal limits. There are no erosive or destructive bony lesions. No fracture or dislocation. Soft Tissues: Fluid in the dorsal extensor sheath beginning 3 cm proximal to the radiocarpal joint an d extending distally to the level of the metacarpal heads. Thickening and enhancement of the tendon s brenda. Discontinuity of the extensor tendon of the fourth digit. Subcutaneous stranding/edema of the dorsal subcutaneous fat over the wrist and hand. No definite focal subcutaneous fluid collection or s kin defect detected. Fluid: No significant fluid within the wrist joint capsule. IMPRESSION: Extensor tenosynovitis of the hand and wrist. Infectious etiology should be considered in the differe ntial. Adjacent subcutaneous stranding may represent edema or cellulitis. Apparent discontinuity of the fourth extensor tendon, correlate for active range of motion or strengt h deficit in the fourth finger. MR of the hand would be helpful for better characterization of this p otential tendon injury. No acute osseous finding in the right hand or wrist. Reviewed, dictated and finalized at [facility]. IMPRESSION: Extensor tenosynovitis of the hand and wrist. Infectious etiology should be con sidered in the differential. Adjacent subcutaneous stranding may represent abundio a or cellulitis. Apparent discontinuity of the fourth extensor tendon, correlate for active rang e of motion or strength deficit in the fourth finger. MR of the hand would be h elpful for better characterization of this potential tendon injury. No acute osseous finding in the right hand or wrist.
--- NOTE | ~2025-04-03 | MR_ITS ---
EXAMINATION: MR hand RT wo/w con DATE: 04/04/2025 16:13 INDICATION: Right hand cellulitis TECHNIQUE: Magnetic resonance imaging (MRI) of the right hand was performed without and with 14 mL Pr oHance intravenous contrast. Sequences included axial T1-weighted FSE, axial T2-weighted FS FSE, sage nal T1-weighted FSE, coronal T2-weighted FS FSE, sagittal T1-weighted FSE and sagittal T2-weighted FS FSE. Precontrast axial T1-weighted FS FSE and post contrast axial, sagittal and coronal T1-weighted FS FSE were also obtained. COMPARISON: CT dated 04/03/2025 FINDINGS: Bone alignment is normal. Normal bone marrow signal throughout. Joint spaces are normal with no joint effusions or enhancing synovitis. There is enhancing tenosynovitis surrounding small amount of compl ex nonenhancing fluid within the tendon sheath surrounding the extensor digitorum and extensor indici s tendons. The extensor and flexor tendons appear to remain intact. The artifactual appearance of a d iscontinuity of the extensor tendon to the fourth digit on the prior CT likely results from a discont inuity in the enhancing synovitis along the tendon as opposed to the tendon proper. No other abnormal fluid collections identified. Intrinsic musculature of the hand is unremarkable. IMPRESSION: 1. Prominent tenosynovitis in the fourth dorsal compartment surrounding the extensor digitorum and ex tensor indicis tendons which appear to remain intact. The tenosynovitis could be either septic or ase ptic. Could consider ultrasound-guided diagnostic aspiration. Reviewed, dictated and finalized at location A. IMPRESSION: 1. Prominent tenosynovitis in the fourth dorsal compartment surrounding the ext ensor digitorum and extensor indicis tendons which appear to remain intact. The tenosynovitis could be either septic or aseptic. Could consider ultrasound-benjie ded diagnostic aspiration.
--- NOTE | ~2025-04-03 | XR_ITS ---
XR hand RT min 3V Ordering provider: Janet Gordon PA-C History: . red raised area top of right hand . Comparison: None. FINDINGS: BONES: No acute fracture or dislocation. JOINT SPACES: Normal. SOFT TISSUES: Soft tissue swelling over the dorsum of the hand. IMPRESSION: No acute osseous abnormality right hand. Reviewed, dictated and finalized at location A.
[2025-04-03 19:53] VITALS: BP 145/83; PULSE 110; RESP 18; TEMP 37.3; O2SAT 98
--- OUTSIDE RECORDS SUMMARY | 2025-04-03 19:53 | XMS_ITS | Patient Health Record ---
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 Role Phone Sandee Eliana Primary Care Provider [phone] Keo Barba Unavailable [phone] Maty Acuna Unavailable [phone] Zahraa Mejia Unavailable Francisca Winston Unavailable [phone] Allergies No Known Allergies Results Component Value Reference Range Notes 12 Panel Urine Drug Screen Reviewed date:04/10/2024 11:42:12 AM Interpretation: Performing Lab: Notes/Report: THC POS AVE neg MOP (OPI) neg AMP neg MET neg BAR neg BZO neg MDMA neg MTD neg OXY neg PCP neg BUP POS 12 Panel Urine Drug Screen Reviewed date:10/02/2024 09:04:59 AM Interpretation: Performing Lab: Notes/Report: [facility] POS [facility] neg MOP (OPI) neg AMP neg MET neg BAR neg BZO neg MDMA neg MTD neg OXY neg PCP neg BUP POS 12 Panel Urine Drug Screen Reviewed date:09/11/2024 09:06:59 AM Interpretation: Performing Lab: Notes/Report: [facility] POS AVE neg MOP (OPI) neg AMP neg MET neg BAR neg BZO neg MDMA neg MTD neg OXY neg PCP neg BUP POS 12 Panel Urine Drug Screen Reviewed date:01/29/2025 08:40:18 AM Interpretation: Performing Lab: Notes/Report: THC pos AVE neg MOP (OPI) neg AMP neg MET neg BAR neg BZO neg MDMA neg MTD neg OXY neg PCP neg BUP pos 12 Panel Urine Drug Screen Reviewed date:11/06/2024 08:48:09 AM Interpretation: Performing Lab: Notes/Report: [facility] POS A[facility] neg MOP (OPI) neg AMP neg MET neg BAR neg BZO neg MDMA neg MTD neg OXY neg PCP neg BUP POS 12 Panel Urine Drug Screen Reviewed date:08/31/2024 01:50:37 PM Interpretation: Performing Lab: Notes/Report: [facility] POS AVE neg MOP (OPI) neg AMP neg MET neg BAR neg BZO neg MDMA neg MTD neg OXY neg PCP neg BUP POS 12 Panel Urine Drug Screen Reviewed date:12/04/2024 08:50:52 AM Interpretation: Performing Lab: Notes/Report: [facility] POS A[facility] NEG MOP (OPI) NEG AMP NEG MET NEG BAR NEG BZO NEG MDMA NEG MTD NEG OXY NEG PCP NEG BUP POS 12 Panel Urine Drug Screen Reviewed date:06/19/2024 09:09:50 AM Interpretation: Performing Lab: Notes/Report: THC POS AVE neg MOP (OPI) neg AMP neg MET neg BAR neg BZO neg MDMA neg MTD neg OXY neg PCP neg BUP POS 12 Panel Urine Drug Screen Reviewed date:05/08/2024 08:20:34 AM Interpretation: Performing Lab: Notes/Report: [facility] POS AVE neg MOP (OPI) neg AMP neg MET neg BAR neg BZO neg MDMA neg MTD neg OXY neg PCP neg BUP POS Reason For Referral No Information Medications Medication SIG (Take, Route, Frequency, Duration) Notes Start Date End Date Status Lexapro 20 MG 1 tablet Orally Once a day for 30 days Active hydrOXYzine HCl 50 MG 1-2 tablets Orally Once a day at bedtime for 30 days As needed Active Buprenorphine HCl-Naloxone HCl 4-1 MG 1 film under the tongue and allow to dissolve Sublingual three times daily for 30 days 02/26/2025 Active cloNIDine HCl 0.1 MG 1 tablet Orally two times daily for 30 days As needed Active Carvedilol Active Social History Tobacco Use: Social History Observation Description Date Details (start date - stop date) Unknown Sex Assigned At : Social History Observation Description Sex Assigned At Male PRAPARE Question Answer Notes Date Completed/Updated: 07/25/2024 What is your current housing situation? I have housing Are you worried about losing your housing? No What is the highest level of school that you have finished? 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 Check all that apply Medicine or any health care (medical, dental, mental health or vision),I do not have problems meeting my needs going to change up the medications. Starting on lexapro and clonidine Has lack of transportation k ept you from medical appointments, meetings, work or from getting things needed for daily living? No How often do you see or talk to people that you care about and feel close to? (For example: talking to friends on the phone, visiting friends or family, going to mormonism or club meetings) More than 5 times a week Has the support of his father who attended the appointment with him. How stressed are you? Stress is when someone feels tense, nervous, anxious, or can\\t sleep at night because their mind is troubled A little bit anxiety is his main concern. Nightmare and difficulty with sleep comes and goes Meeting with client to initiate therapy after this appointment In the past year have you sp ent more than 2 nights in a row in a longterm, jail, senior care center, or juvenile correctional facility? No Are you a refugee? No What country are you from? [place] Do you feel physically and emotionally safe where you currently live? Yes In the past year, have you b een afraid of your partner or ex-partner? No PRAPARE Score: 4 Tobacco Control (Standard) Question Answer Notes Tobacco use: Uses tobacco in other forms Additional Findings: Tobacco user e-cigarette Problems Problem Type SNOMED Code ICD Code Onset Dates Problem Status W/U Status Risk Notes Problem Tobacco user (062089470) Nicotine dependence, unspecified, uncomplicated (F17.200) Active confirmed Problem Insomnia (988635435) Insomnia due to medical condition (G47.01) Active confirmed Problem Anxiety (93915189) Anxiety (F41.9) Active confirmed Problem Generalized anxiety disorder (24730998) Anxiety, generalized (F41.1) Active confirmed Problem Tobacco use (649562870) Tobacco use disorder (F17.200) Active confirmed Problem Opioid use disorder (4053097939) Opioid use disorder (F11.99) Active confirmed Vital Signs Heart Rate 64 /min 01/29/2025 Temperature 98.3 degrees Fahrenheit 01/29/2025 Respiratory Rate 18 /min 01/01/2025 Oximetry 98 % 01/29/2025 Blood pressure diastolic 64 mm Hg 01/29/2025 Height 70 in 01/29/2025 Blood pressure systolic 108 mm Hg 01/29/2025 Weight 156.4 lbs 01/29/2025 BMI 22.44 kg/m2 01/29/2025 Encounters Encounter Location Date Provider Diagnosis Formerly [facility] [address] [place] [address] 04/10/2024 Eliana Ignacio Opioid use disorder F11.99 ; Tobacco use disorder F17.200 and Nicotine dependence, unspecified, uncomplicated F17.[address] [place] [address] 05/08/2024 Francisca Winston Opioid use disorder F11.99 and Nicotine dependence, unspecified, uncomplicated F17.[address] [place] [address] 05/08/2024 Maty Acuna [facility] [place] [address] 06/19/2024 Eliana Ignacio Opioid use disorder F11.99 ; Tobacco use disorder F17.200 ; Nicotine dependence, unspecified, uncomplicated F17.200 and Insomnia due to medical condition G47.[address] [address] 07/25/2024 Eliana Ignacio Tobacco use disorder F17.200 ; Opioid use disorder F11.99 ; Nicotine dependence, unspecified, uncomplicated F17.200 ; Insomnia due to medical condition G47.01 ; Anxiety, generalized F41.1 and Cannabis use disorder F12.90 [facility] [address] [address] 07/25/2024 Maty Acuna [facility] [place] [address] 08/31/2024 Keo Barba Opioid use disorder F11.99 and Tobacco use disorder F17.200 Formerly [facility] [address] [place] [address] 09/11/2024 Eliana Ignacio Nicotine dependence, unspecified, uncomplicated F17.200 ; Anxiety, generalized F41.1 ; Opioid use disorder F11.99 ; Insomnia due to medical condition G47.01 and Cannabis use disorder F12.90 [facility] [address] [place] [address] 10/02/2024 Eliana Sparr Nicotine dependence, unspecified, uncomplicated F17.200 ; Opioid use disorder F11.99 ; Anxiety, generalized F41.1 ; Insomnia due to medical condition G47.01 and Cannabis use disorder F12.90 [facility] [address] [place] [address] 11/06/2024 Eliana Sparr Nicotine dependence, unspecified, uncomplicated F17.200 ; Opioid use disorder F11.99 ; Anxiety, generalized F41.1 ; Insomnia due to medical condition G47.01 and Cannabis use disorder F12.90 [place] [place] [address] [place] [address] 12/04/2024 Eliana Sparr Nicotine dependence, unspecified, uncomplicated F17.200 ; Opioid use disorder F11.99 ; Anxiety, generalized F41.1 ; Insomnia due to medical condition G47.01 and Cannabis use disorder F12.90 [place] [place] [address] [place] [address] 01/01/2025 Eliana Sparr Nicotine dependence, unspecified, uncomplicated F17.200 ; Opioid use disorder F11.99 ; Anxiety, generalized F41.1 ; Insomnia due to medical condition G47.01 and Cannabis use disorder F12.90 [facility] [place] [address] [place] [address] 01/29/2025 Eliana Sparr Nicotine dependence, unspecified, uncomplicated F17.200 ; Opioid use disorder F11.99 ; Anxiety, generalized F41.1 ; Insomnia due to medical condition G47.01 and Cannabis use disorder F12.[address] [place] [address] [place] [address] 02/26/2025 Eliana Sparr Nicotine dependence, unspecified, uncomplicated F17.200 ; Opioid use disorder F11.99 ; Anxiety, generalized F41.1 ; Insomnia due to medical condition G47.01 and Cannabis use disorder F12.[address] [place] [address] 05/08/2024 Zahraa Whiteinga Opioid use disorder F11.[address] [place] [address] 08/22/2024 Keo Barba [address] [place] [address] 09/04/2024 Eliana Ignacio Anxiety, generalized F41.1 [facility] [address] [place] [address] 02/23/2025 Eliana Ignacio [place] [address] [place] [address] 08/21/2024 Eliana Ignacio Assessments Encounter Date Diagnosis (ICD Code) Assessment Notes Treatment Notes Treatment Clinical Notes Section Notes 01/29/2025 Nicotine dependence, unspecified, uncomplicated (ICD-10 - F17.200) education provided related to smoking cessation 01/01/2025 Nicotine dependence, unspecified, uncomplicated (ICD-10 - F17.200) 12/04/2024 Nicotine dependence, unspecified, uncomplicated (ICD-10 - F17.200) 11/06/2024 Nicotine dependence, unspecified, uncomplicated (ICD-10 - F17.200) 06/19/2024 Tobacco use disorder (ICD-10 - F17.200) 06/19/2024 Opioid use disorder (ICD-10 - F11.99) Reasons, potential benefits, interactions and side effects of all medications were discussed. The Patient/Guardian asked appropriate questions, appeared to understand the answers, and decided to accept the treatment and continue being followed. Alternatives and expected course without treatment were reviewed. The Patient/Guardian is aware of the need to contact the office or return for an earlier appointment if any problems or concerns arise. May also contact the 24-hour crisis hotline (R), refer to the closest emergency room or call 911 if new symptoms arise or existing symptoms worsen. The Patient/Guardian is aware that this would apply to symptoms like: suicidal ideation, homicidal ideation, high risk behaviors, manic symptoms, psychotic symptoms, physical symptoms, or any other symptoms that may be dangerous to self or others. Greater than 50% of time spent on coordination and counseling where psychopharmacology as well as psychotherapeutic interventions were discussed along with review of treatments in the past. Education provided concerning need for adequate hydration. Patient/Guardian verbalized understanding of education, treatment plan and follow up. Appointment performed in person. Follow up in 1 MO or sooner as needed. May self-administer or be administered own oral medication per [place] Protocols. Provided informed consent with understanding of side effects, risks and benefits as well as alternative treatments as previously discussed and with the above recommended medications ang other aspects of the treatment program. Agrees to return sooner if symptoms worsen or suicidal or homicidal ideations occur. support and education provided concerning illness and treatment plan, risks and benefits, pt verbalized understanding of the same and agreeable --doing well, denies cravings or withdrawal, Suboxone 4 mg film once daily, denies concerns, continue Suboxone, continue Gabapentin for anxiety evaluate at follow up --support and education provided concerning Brixadi & Sublocade [employer], 05/08/2024 Opioid use disorder (ICD-10 - F11.99) 05/08/2024 Nicotine dependence, unspecified, uncomplicated (ICD-10 - F17.200) 05/08/2024 Opioid use disorder (ICD-10 - F11.99) 09/04/2024 Anxiety, generalized (ICD-10 - F41.1) 04/10/2024 Opioid use disorder (ICD-10 - F11.99) Reasons, potential benefits, interactions and side effects of all medications were discussed. The Patient/Guardian asked appropriate questions, appeared to understand the answers, and decided to accept the treatment and continue being followed. Alternatives and expected course without treatment were reviewed. The Patient/Guardian is aware of the need to contact the office or return for an earlier appointment if any problems or concerns arise. May also contact the 24-hour crisis hotline ([facility]), refer to the closest emergency room or call 911 if new symptoms arise or existing symptoms worsen. The Patient/Guardian is aware that this would apply to symptoms like: suicidal ideation, homicidal ideation, high risk behaviors, manic symptoms, psychotic symptoms, physical symptoms, or any other symptoms that may be dangerous to self or others. Greater than 50% of time spent on coordination and counseling where psychopharmacology as well as psychotherapeutic interventions were discussed along with review of treatments in the past. Education provided concerning need for adequate hydration. Patient/Guardian verbalized understanding of education, treatment plan and follow up. Appointment performed in person. Follow up in 1 MO or sooner as needed. May self-administer or be administered own oral medication per [place] Protocols. Provided informed consent with understanding of side effects, risks and benefits as well as alternative treatments as previously discussed and with the above recommended medications ang other aspects of the treatment program. Agrees to return sooner if symptoms worsen or suicidal or homicidal ideations occur. support and education provided concerning illness and treatment plan, risks and benefits, pt verbalized understanding of the same and agreeable --doing well, denies cravings or withdrawal, Suboxone 4 mg film once daily, denies concerns, continue Suboxone, continue Gabapentin for anxiety evaluate at follow up --support and education provided concerning Brixadi & Sublocade [employer], given Brixadi pamphlet 02/26/2025 Nicotine dependence, unspecified, uncomplicated (ICD-10 - F17.200) education provided related to smoking cessation 10/02/2024 Nicotine dependence, unspecified, uncomplicated (ICD-10 - F17.200) 09/11/2024 Nicotine dependence, unspecified, uncomplicated (ICD-10 - F17.200) 09/11/2024 Anxiety, generalized (ICD-10 - F41.1) Reasons, potential benefits, interactions and side effects of all medications were discussed. The Patient/Guardian asked appropriate questions, appeared to understand the answers, and decided to accept the treatment and continue being followed. Alternatives and expected course without treatment were reviewed. The Patient/Guardian is aware of the need to contact the office or return for an earlier appointment if any problems or concerns arise. May also contact the 24-hour crisis hotline ([facility]), refer to the closest emergency room or call 911 if new symptoms arise or existing symptoms worsen. The Patient/Guardian is aware that this would apply to symptoms like: suicidal ideation, homicidal ideation, high risk behaviors, manic symptoms, psychotic symptoms, physical symptoms, or any other symptoms that may be dangerous to self or others. Greater than 50% of time spent on coordination and counseling where psychopharmacology as well as psychotherapeutic interventions were discussed along with review of treatments in the past. Education provided concerning need for adequate hydration. Patient/Guardian verbalized understanding of education, treatment plan and follow up. Appointment performed in person. Follow up in 4 weeks or sooner as needed. May self-administer or be administered own oral medication per [place] Protocols. Provided informed consent with understanding of side effects, risks and benefits as well as alternative treatments as previously discussed and with the above recommended medications ang other aspects of the treatment program. Agrees to return sooner if symptoms worsen or suicidal or homicidal ideations occur. support and education provided concerning illness and treatment plan, risks and benefits, pt verbalized understanding of the same and agreeable --feeling better, less anxious, feels more anxious during the week due to work. Denies panic attacks. Taking Clonidine 2x dly. Feels anxiety is manageable, prefers to continue same meds, same dose __continue Lexapro for anxiety evaluate at follow up __continue Clonidine for anxiety, evaluate at follow up 08/31/2024 Tobacco use disorder (ICD-10 - F17.200) 08/31/2024 Opioid use disorder (ICD-10 - F11.99) 07/25/2024 Tobacco use disorder (ICD-10 - F17.200) 07/25/2024 Opioid use disorder (ICD-10 - F11.99) Reasons, potential benefits, interactions and side effects of all medications were discussed. The Patient/Guardian asked appropriate questions, appeared to understand the answers, and decided to accept the treatment and continue being followed. Alternatives and expected course without treatment were reviewed. The Patient/Guardian is aware of the need to contact the office or return for an earlier appointment if any problems or concerns arise. May also contact the 24-hour crisis hotline ([facility]), refer to the closest emergency room or call 911 if new symptoms arise or existing symptoms worsen. The Patient/Guardian is aware that this would apply to symptoms like: suicidal ideation, homicidal ideation, high risk behaviors, manic symptoms, psychotic symptoms, physical symptoms, or any other symptoms that may be dangerous to self or others. Greater than 50% of time spent on coordination and counseling where psychopharmacology as well as psychotherapeutic interventions were discussed along with review of treatments in the past. Education provided concerning need for adequate hydration. Patient/Guardian verbalized understanding of education, treatment plan and follow up. Appointment performed in person. Follow up in 1 MO or sooner as needed. May self-administer or be administered own oral medication per [place] Protocols. Provided informed consent with understanding of side effects, risks and benefits as well as alternative treatments as previously discussed and with the above recommended medications ang other aspects of the treatment program. Agrees to return sooner if symptoms worsen or suicidal or homicidal ideations occur. support and education provided concerning illness and treatment plan, risks and benefits, pt verbalized understanding of the same and agreeable --doing well, denies cravings or withdrawal, Suboxone 4 mg film once daily, denies concerns, continue Suboxone, --DC Gabapentin hasn't been effective 07/25/2024 Nicotine dependence, unspecified, uncomplicated (ICD-10 - F17.200) 09/11/2024 Opioid use disorder (ICD-10 - F11.99) continue MAR, follow up as ordered 10/02/2024 Opioid use disorder (ICD-10 - F11.99) feels Suboxone has been working well, denies cravings or mis-steps, feels Suboxone has been working well --continue Suboxone for OUD, evaluate at follow up 04/10/2024 Tobacco use disorder (ICD-10 - F17.200) 02/26/2025 Opioid use disorder (ICD-10 - F11.99) feels Suboxone has been working well, denies mis-steps, denies cravings, feels Suboxone has been working well, Prefers to continue with same dose --UDS not obtained--Zoom connection, will obtain UDS at next visit, may provide UDS prior to visit for virtual visit, pt verbalized understanding of the same --continue Suboxone for OUD, cravings evaluate at follow up --[place] PDMP--no concerns 06/19/2024 Nicotine dependence, unspecified, uncomplicated (ICD-10 - F17.200) 11/06/2024 Opioid use disorder (ICD-10 - F11.99) feels Suboxone has been working well, denies cravings or mis-steps, prefers to continue Suboxone at current dose --UDS++THC, ++BUP --continue Suboxone for OUD, evaluate at follow up --[place] PDMP--no concerns 12/04/2024 Opioid use disorder (ICD-10 - F11.99) feels Suboxone has been working well, denies cravings or mis-steps, prefers to continue Suboxone at current dose --UDS++THC, ++BUP --continue Suboxone for OUD, evaluate at follow up --[place] PDM--no concerns 01/01/2025 Opioid use disorder (ICD-10 - F11.99) feels Suboxone has been working well, denies mis-steps, increased cravings since stopping cannabis, asking to titrate Suboxone as he is experiencing increased cravings since stopping pot. Education and support provided --UDS++THC, ++BUP --titrate Suboxone for OUD, cravings evaluate at follow up --[place] PDMP--no concerns 01/29/2025 Opioid use disorder (ICD-10 - F11.99) feels Suboxone has been working well, denies mis-steps, increased cravings since stopping cannabis, asking to titrate Suboxone as he is experiencing increased cravings since stopping pot. Education and support provided --UDS++THC, ++BUP --continue Suboxone for OUD, cravings evaluate at follow up --[place] PD[place]--no concerns 01/29/2025 Anxiety, generalized (ICD-10 - F41.1) Reasons, potential benefits, interactions and side effects of all medications were discussed. The Patient/Guardian asked appropriate questions, appeared to understand the answers, and decided to accept the treatment and continue being followed. Alternatives and expected course without treatment were reviewed. The Patient/Guardian is aware of the need to contact the office or return for an earlier appointment if any problems or concerns arise. May also contact the 24-hour crisis hotline ([facility]), refer to the closest emergency room or call 911 if new symptoms arise or existing symptoms worsen. The Patient/Guardian is aware that this would apply to symptoms like: suicidal ideation, homicidal ideation, high risk behaviors, manic symptoms, psychotic symptoms, physical symptoms, or any other symptoms that may be dangerous to self or others. Greater than 50% of time spent on coordination and counseling where psychopharmacology as well as psychotherapeutic interventions were discussed along with review of treatments in the past. Education provided concerning need for adequate hydration. Patient/Guardian verbalized understanding of education, treatment plan and follow up. Appointment performed in person. Follow up in 4 weeks or sooner as needed., May self-administer or be administered own oral medication per [place] Protocols. Provided informed consent with understanding of side effects, risks and benefits as well as alternative treatments as previously discussed and with the above recommended medications ang other aspects of the treatment program. Agrees to return sooner if symptoms worsen or suicidal or homicidal ideations occur. support and education provided concerning illness and treatment plan, risks and benefits, pt verbalized understanding of the same and agreeable __-feeling pretty good. Found a new job, will be starting in a couple days. Looking forward to starting his new job. Mild to moderate anxiety most days, feels Clonidine has been working well to manage anxiety, takes Clonidine 2x dly most days. Denies mood swings & racing thoughts. Denies depression, denies irritabililty, good focus. Feels medicine has been effective __continue Lexapro for anxiety evaluate at follow up __continue Clonidine for anxiety, evaluate at follow up 01/01/2025 Anxiety, generalized (ICD-10 - F41.1) Reasons, potential benefits, interactions and side effects of all medications were discussed. The Patient/Guardian asked appropriate questions, appeared to understand the answers, and decided to accept the treatment and continue being followed. Alternatives and expected course without treatment were reviewed. The Patient/Guardian is aware of the need to contact the office or return for an earlier appointment if any problems or concerns arise. May also contact the 24-hour crisis hotline ([facility]), refer to the closest emergency room or call 911 if new symptoms arise or existing symptoms worsen. The Patient/Guardian is aware that this would apply to symptoms like: suicidal ideation, homicidal ideation, high risk behaviors, manic symptoms, psychotic symptoms, physical symptoms, or any other symptoms that may be dangerous to self or others. Greater than 50% of time spent on coordination and counseling where psychopharmacology as well as psychotherapeutic interventions were discussed along with review of treatments in the past. Education provided concerning need for adequate hydration. Patient/Guardian verbalized understanding of education, treatment plan and follow up. Appointment performed in person. Follow up in 4 weeks or sooner as needed., May self-administer or be administered own oral medication per [place] Protocols. Provided informed consent with understanding of side effects, risks and benefits as well as alternative treatments as previously discussed and with the above recommended medications ang other aspects of the treatment program. Agrees to return sooner if symptoms worsen or suicidal or homicidal ideations occur. support and education provided concerning illness and treatment plan, risks and benefits, pt verbalized understanding of the same and agreeable ---quit his using pot 12/15, decided he didn't need it anymore since he wasn't working. experiencing increased anxiety and decreased appetite since stoppig. Reports cravings. Irritable at times. Denies mood swings & racing thoughts. Mild depression, moderate anxiety feels these are manageable. Looking for a job. Feels medicine has been effective __continue Lexapro for anxiety evaluate at follow up __continue Clonidine for anxiety, evaluate at follow up 12/04/2024 Anxiety, generalized (ICD-10 - F41.1) Reasons, potential benefits, interactions and side effects of all medications were discussed. The Patient/Guardian asked appropriate questions, appeared to understand the answers, and decided to accept the treatment and continue being followed. Alternatives and expected course without treatment were reviewed. The Patient/Guardian is aware of the need to contact the office or return for an earlier appointment if any problems or concerns arise. May also contact the 24-hour crisis hotline ([facility]), refer to the closest emergency room or call 911 if new symptoms arise or existing symptoms worsen. The Patient/Guardian is aware that this would apply to symptoms like: suicidal ideation, homicidal ideation, high risk behaviors, manic symptoms, psychotic symptoms, physical symptoms, or any other symptoms that may be dangerous to self or others. Greater than 50% of time spent on coordination and counseling where psychopharmacology as well as psychotherapeutic interventions were discussed along with review of treatments in the past. Education provided concerning need for adequate hydration. Patient/Guardian verbalized understanding of education, treatment plan and follow up. Appointment performed in person. Follow up in 4 weeks or sooner as needed., may follow up via telephone appt May self-administer or be administered own oral medication per [place] Protocols. Provided informed consent with understanding of side effects, risks and benefits as well as alternative treatments as previously discussed and with the above recommended medications ang other aspects of the treatment program. Agrees to return sooner if symptoms worsen or suicidal or homicidal ideations occur. support and education provided concerning illness and treatment plan, risks and benefits, pt verbalized understanding of the same and agreeable ---quit his job last month, feels like it was too stressful and threatening his sobriety, he talked with his sponsor prior to quitting. Feels less anxious, more relaxed, sleeping better. Looking for another job, has had 2 interviewes. Denies mood swings or irritability, minimal depression, mild anxiety, __continue Lexapro for anxiety evaluate at follow up __continue Clonidine for anxiety, evaluate at follow up 11/06/2024 Anxiety, generalized (ICD-10 - F41.1) Reasons, potential benefits, interactions and side effects of all medications were discussed. The Patient/Guardian asked appropriate questions, appeared to understand the answers, and decided to accept the treatment and continue being followed. Alternatives and expected course without treatment were reviewed. The Patient/Guardian is aware of the need to contact the office or return for an earlier appointment if any problems or concerns arise. May also contact the 24-hour crisis hotline ([facility]), refer to the closest emergency room or call 911 if new symptoms arise or existing symptoms worsen. The Patient/Guardian is aware that this would apply to symptoms like: suicidal ideation, homicidal ideation, high risk behaviors, manic symptoms, psychotic symptoms, physical symptoms, or any other symptoms that may be dangerous to self or others. Greater than 50% of time spent on coordination and counseling where psychopharmacology as well as psychotherapeutic interventions were discussed along with review of treatments in the past. Education provided concerning need for adequate hydration. Patient/Guardian verbalized understanding of education, treatment plan and follow up. Appointment performed in person. Follow up in 4 weeks or sooner as needed. May self-administer or be administered own oral medication per [place] Protocols. Provided informed consent with understanding of side effects, risks and benefits as well as alternative treatments as previously discussed and with the above recommended medications ang other aspects of the treatment program. Agrees to return sooner if symptoms worsen or suicidal or homicidal ideations occur. support and education provided concerning illness and treatment plan, risks and benefits, pt verbalized understanding of the same and agreeable --admitted to [facility] the week before Thanksgiving for BS-40, HR-200, not sleeping or eating. Reports working 50-60 hours weekly, not taking care of himself, not eating or sleeping well. Reports increased anxiety, minimal depression, denies mood swings, racing thoughts at times, decreased focus, poor sleep __titrate Lexapro for anxiety evaluate at follow up __titrate Clonidine for anxiety, evaluate at follow up 04/10/2024 Nicotine dependence, unspecified, uncomplicated (ICD-10 - F17.200) 06/19/2024 Insomnia due to medical condition (ICD-10 - G47.01) -Mag oxide 400 mg at night for sleep, warm bath with 2 cups epsom salts, sleep music to help improve quality of sleep/decrease insomnia, pt verbalized understanding of the same --trial Hydroxyzine for insomnia, evaluate at follow up 02/26/2025 Anxiety, generalized (ICD-10 - F41.1) Reasons, potential benefits, interactions and side effects of all medications were discussed. The Patient/Guardian asked appropriate questions, appeared to understand the answers, and decided to accept the treatment and continue being followed. Alternatives and expected course without treatment were reviewed. The Patient/Guardian is aware of the need to contact the office or return for an earlier appointment if any problems or concerns arise. May also contact the 24-hour crisis hotline ([facility]), refer to the closest emergency room or call 911 if new symptoms arise or existing symptoms worsen. The Patient/Guardian is aware that this would apply to symptoms like: suicidal ideation, homicidal ideation, high risk behaviors, manic symptoms, psychotic symptoms, physical symptoms, or any other symptoms that may be dangerous to self or others. Greater than 50% of time spent on coordination and counseling where psychopharmacology as well as psychotherapeutic interventions were discussed along with review of treatments in the past. Education provided concerning need for adequate hydration. Patient/Guardian verbalized understanding of education, treatment plan and follow up. Appointment performed via secure Zoom connection with pt consent Follow up in 4 weeks or sooner as needed., May self-administer or be administered own oral medication per [place] Protocols. Provided informed consent with understanding of side effects, risks and benefits as well as alternative treatments as previously discussed and with the above recommended medications ang other aspects of the treatment program. Agrees to return sooner if symptoms worsen or suicidal or homicidal ideations occur. support and education provided concerning illness and treatment plan, risks and benefits, pt verbalized understanding of the same and agreeable __-feeling good. Started his new job and feels he's settling in pretty well. Mild to moderate anxiety most days, feels Clonidine has been working well to manage anxiety, takes Clonidine at bedtime. Denies mood swings & racing thoughts. Mild depression is manageable, denies irritabililty, good focus. Feels medicine has been effective __continue Lexapro for anxiety evaluate at follow up __continue Clonidine for anxiety, evaluate at follow up 09/11/2024 Insomnia due to medical condition (ICD-10 - G47.01) -Mag oxide 400 mg at night for sleep, warm bath with 2 cups epsom salts, sleep music to help improve quality of sleep/decrease insomnia, pt verbalized understanding of the same --continue Hydroxyzine for insomnia, evaluate at follow up 07/25/2024 Insomnia due to medical condition (ICD-10 - G47.01) -Mag oxide 400 mg at night for sleep, warm bath with 2 cups epsom salts, sleep music to help improve quality of sleep/decrease insomnia, pt verbalized understanding of the same --continue Hydroxyzine for insomnia, evaluate at follow up 10/02/2024 Anxiety, generalized (ICD-10 - F41.1) Reasons, potential benefits, interactions and side effects of all medications were discussed. The Patient/Guardian asked appropriate questions, appeared to understand the answers, and decided to accept the treatment and continue being followed. Alternatives and expected course without treatment were reviewed. The Patient/Guardian is aware of the need to contact the office or return for an earlier appointment if any problems or concerns arise. May also contact the 24-hour crisis hotline ([facility]), refer to the closest emergency room or call 911 if new symptoms arise or existing symptoms worsen. The Patient/Guardian is aware that this would apply to symptoms like: suicidal ideation, homicidal ideation, high risk behaviors, manic symptoms, psychotic symptoms, physical symptoms, or any other symptoms that may be dangerous to self or others. Greater than 50% of time spent on coordination and counseling where psychopharmacology as well as psychotherapeutic interventions were discussed along with review of treatments in the past. Education provided concerning need for adequate hydration. Patient/Guardian verbalized understanding of education, treatment plan and follow up. Appointment performed in person. Follow up in 4 weeks or sooner as needed. May self-administer or be administered own oral medication per [place] Protocols. Provided informed consent with understanding of side effects, risks and benefits as well as alternative treatments as previously discussed and with the above recommended medications ang other aspects of the treatment program. Agrees to return sooner if symptoms worsen or suicidal or homicidal ideations occur. support and education provided concerning illness and treatment plan, risks and benefits, pt verbalized understanding of the same and agreeable --feeling better, less anxious, has been able to work more as he is feeling less anxious. Admits feeling more anxious due to upcoming holidays with family. Feels anxiety is manageable, prefers to continue same meds, same dose __continue Lexapro for anxiety evaluate at follow up __continue Clonidine for anxiety, evaluate at follow up 07/25/2024 Anxiety, generalized (ICD-10 - F41.1) --continues to feel anxious, Gabapentin hasn't been effective, has had to cut down to 3 day work week due to anxiety. Dad reports pt has been so anxious that Dad had to cancel a business trip so pt wouldn't be left alone. 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 for anxiety Consider Bentyl 20 mg p.o. q.6 hours p.r.n. for abdominal discomfort Methocarbamol 750 mg p.o. q.6 hours p.r.n. for muscle spasm Catapres 0.1 mg p.o. q.2 hours p.r.n. for heart/cold sweats or anxiety. Hold if BP less than 90/60 Monitor development of withdrawal symptoms Alcohol level negative UDS results positive cannabinoids Cellulitis Hand CT:Extensor tenosynovitis of the hand and wrist. Infectious etiology should be considered in the differential. Adjacent subcutaneous stranding may represent edema or cellulitis. Apparent discontinuity of the fourth extensor tendon, correlate for active range of motion or strength deficit in the fourth finger. MR of the hand would be helpful for better characterization of this potential tendon injury. No acute osseous finding in the right hand or wrist received cefepime, Flagyl and vancomycin. will dc on ciprofloxacin, doxy and flagyl Monitor vitals Blood culture positive one set , patrice russo Plastic surgeon on board DS: Summary Hospital Course Hospital Course: per HPI: Patient is a 29-year-old male with no significant past medical history other than being an IV drug abuser who presented to the ED due to possible cellulitis of his right hand. 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 Patient denies smoking but uses vaping and denies alcoholism. Patient reports that he had his last IV fentanyl use yesterday night. He could not confirm the continuity but noted that it was the size of a elena. Pertinent ED labs: WBC 7.8, hemoglobin 13.1, hematocrit 40.6, platelets 311, sodium 139, potassium 3.8, carbon dioxide 30, anion gap 9, creatinine 0.6, CRP 4.8 UDS positive for cannabinoids Ethanol level less than [address]: Extensor tenosynovitis of the hand and wrist. Infectious etiology should be considered in the differential. Adjacent subcutaneous stranding may represent edema or cellulitis. Apparent discontinuity of the fourth extensor tendon correlates with active range of motion or strength deficit in the fourth finger. MR of the hand would help better characterize this potential tendon injury. No acute osseous finding in the right hand or wrist. 04/04/25 Hand surgeon has been consulted. Continue with IV antibiotics. 04/06/25 Patient was seen and examined at bedside. Feeling better. . R hand ROM improving. Denies any chest pain, shortness of breath, abdominal pain, nausea vomiting. Surgery team on bard. recommended follow up as outpatient. will discharge patient home. continue Cipro, yl and doxy. Time Spent with Patient Time attestation: Total time spent providing and/or coordinating discharge services: Exam Narrative: GENERAL: Well-appearing, well-nourished, and in no acute distress. HEAD: Normocephalic, atraumatic. EYES: PERRLA and EOMI. ENT: Nares clear, no rhinorrhea or epistaxis. Mucous membranes moist. NECK: Supple. CHEST: Clear to auscultation. No respiratory distress. HEART: Regular rate and rhythm. No murmur heard. Normal peripheral pulses. ABDOMEN: Soft, nontender, nondistended, normal active bowel sounds. EXTREMITIES: Normal range of motion. No edema. SKIN: Warm, dry, no rash. There is redness present to the dorsum of the right hand the early there is swelling present is tender to palpation and there is no crepitance no fluctuance NEURO: No focal deficits. Alert and oriented x3. PSYCH: Normal mood and affect. DS: Data Data Completed and Pending Labs on day of discharge: Labs from last 24 hours 04/06/25 04:15 WBC 7.1 RBC 4.48 L Hgb 13.6 L Hct 40.8 L MCV 91.1 MCH 30.4 MCHC 33.3 RDW 12.9 Plt Count 398 H MPV 9.5 Immature Gran % (Auto) 0.6 H Neut % (Auto) 58.8 Lymph % (Auto) 28.6 [place] % (Auto) 9.9 H Eos % (Auto) 1.0 Baso % (Auto) 1.1 Lymph # (Auto) 2.03 [place] # (Auto) 0.7 H Eos # (Auto) 0.1 Baso # (Auto) 0.1 Abs Immat Gran (auto) 0.04 H Absolute Neuts (auto) 4.2 Absolute Nucleated RBC 0.000 Nucleated RBC % 0.0 Sodium 140 Potassium 3.9 Chloride 104 Carbon Dioxide 26 Anion Gap 10 BUN 9 Creatinine 0.62 L Estim Creat Clear Calc 138 Estimated GFR > 60 Glucose 96 Calcium 8.9 Preliminary micro results at discharge 04/03/25 21:20 Blood Culture - Preliminary Blood Staphylococcus hominis 04/03/25 21:30 Blood Culture - Preliminary Blood Discharge Plan Discharge Attending physician on discharge: Clover Maldonado Consulting providers: Jonathan Herbert Discharging Clinician: Clover Maldonado Patient Disposition: Home Activity: as tolerated Diet: as tolerated Patient Instructions: Antibiotic Form Patient Language: Gambian Stand Alone Forms: General Discharge Information Follow-up/Referrals: Jonathan Herbert MD [Physician] - Call for Appointment Neha,MEENU Bro [Primary Care Provider] - 1 Week Discharge Medications: New metronidazole 500 mg Tablet 500 mg PO Q8HR Qty: 30 0RF doxycycline hyclate 100 mg capsule 100 mg PO Q12H Qty: 20 0RF ciprofloxacin HCl 500 mg tablet 500 mg PO BID Qty: 20 0RF Rx Instructions: administer within 120 minutes prior to surgical incision Continued buprenorphine-naloxone 4-1 mg film 1 film sublingual DAILY carvedilol 6.25 mg tablet 6.25 mg PO BIDWMEAL clonidine HCl 0.1 mg tablet 0.1 mg PO BID hydroxyzine HCl 50 mg tablet 50 mg PO HS PRN (Reason: insomnia) escitalopram oxalate 10 mg tablet 20 mg PO DAILY Date of admission: 04/03/25 22:58 Primary Care Provider: DemiAdali Admitting Provider: Gilson Lao Attending physician on admission: Clover Maldonado Condition: Stable Care Plan Goals: 1)follow with PCP in one week 2) warm moist compresses BID dorsum of hand 3) light jose wrap compression and elevation 4) f/u plastics surgery - discussed possible OT if stiffness not improving 5)quit drugs abuse"
--- OUTSIDE RECORDS SUMMARY | 2025-04-03 19:53 | XMS_ITS | Clinical Summary ---
Author Organization [facility] Address [address] [place] [id number] Care Team Providers Care Machine Stuffer Automatic Name Role Phone Unavailable Primary Care Provider Unavailabl e Social History Tobacco Use Types Packs/Day Years Used Date Smoking Tobacco: Never Assessed Sex and Gender Information Value Date Recorded Sex Assigned at Not on file Legal Sex Male 7:40 PM CDT Gender Identity Not on file Sexual Orientation Not on file Plan of Treatment Health Maintenance Due Date Last Done Comments Annual Physical 1999 Hepatitis C 2014 DTaP, Tdap and Td Vaccines ( 1 - Tdap) 2015 Hepatitis B Vaccines (1 of 3 - 19+ 3-dose series) 2015 COVID-19 Vaccine (2023-2 5 season) 2024 HPV Vaccines Aged Out No longer eligi ble based on patient's age to complete this topic Meningococcal B Vaccine Aged Out No l onger eligible based on patient's age to complete this topic Meningococcal Vaccine Aged Out No bessy sil eligible based on patient's age to complete this topic Pneumococcal Vaccine: Pediat rics (0 to 5 Years) and At-Risk Patients (6 to 49 Years) Aged Out No longer eligible b ased on patient's age to complete this topic RSV Immunizations Under 20 Months Aged Out No longer eligible based on patient's age to complete this topic
--- OUTSIDE RECORDS SUMMARY | 2025-04-03 19:53 | XMS_ITS | Clinical Summary ---
Author Organization [facility] Address [address] [place] [address] Care Team Providers Care Porcelain Turner Name Role Phone Mary Gomez MD Unavailable Mary Gomez MD Primary Care Provider [phone] Source Comments [facility],non-owned Affiliates and Associated Physician Practices is amultiple site organization consisting of ambulatory clinics and hospital sitesin [place], [place], [place] and [place]. This disclosure is being madepursuant to the Care Everywhere program and may not contain all information available regarding this patient. Last updated 18.[facility] Allergies No known active allergies Medications * Be aware that medications may not be up to date on this document. Alwaysverify current medications with the patient. AMOXICILLIN PO Take by mouth. Active citalopram (CELEXA) 20 MG tablet Take 1 Tab by mouth once daily for 30 days. 30 Tab 1 06/25/2011 Active citalopram (CELEXA) 20 MG tablet Take one and a half tablet daily. 60 Tab 1 07/17/2011 Active Active Problems Problem Noted Date Diagnosed Date Acne--Sees Derm 05/19/2011 Immunizations Immunization Administration Dates Next Due DTaP VACCINE IM (6wk-6yrs) 06/13/2001,,01/15/1997, 6,1996 HEP A PEDS 2 DOSE 02/24/2008,07/13/2006 HEP B VACCINE, PED/ADOL 01/15/1997,1996, HIB BOOSTER 05/02/1998, 7,1996, 6 Human Papilloma Virus Vaccine 03/25/2010 MENINGOCOCCAL ACWY (MCV4P) VAC IM 03/25/2010 MMR 06/13/2001,08/22/1997 POLIO IPV 06/13/2001, 7,1996, 6 PPD 06/13/2001 TDAP (7yrs+) 07/13/2006 VARICELLA 03/25/2010,08/22/1997 Social History Tobacco Use Types Packs/Day Years Used Date Smoking Tobacco: Never Assessed Sex and Gender Information Value Date Recorded Sex Assigned at Not on file Legal Sex Male 6:56 AM 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[employer] 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[employer] Gender Identity Not on file Sexual Orientation Not on file Last Filed Vital Signs Vital Sign Reading Time Taken Comments Blood Pressure 122/70 07/17/2011 9:52 AM CDT Pulse 100 07/17/2011 9:52 AM CDT Temperature 37.6 C (99.6 F) 07/17/2011 9:52 AM CDT Respiratory Rate 20 05/19/2011 2:11 PM CDT Oxygen Saturation - - Inhaled Oxygen Concentration - - Weight 60.5 kg (133 lb 6.4 oz) 07/17/2011 9:52 A M CDT Height 168.3 cm (5' 6.25 ) 06/25/2011 9:12 AM CD T Body Mass Index - - Plan of Treatment Health Maintenance Due Date Last Done Comments HPV VACCINE (2 - Male 2-dose series) 09/25/2010 03/25/2010 HIV SCREENING 2011 HEPATITIS C SCREENING 06/24/2014 DTAP/TDAP/TD VACCINES (7 - Td or Tdap) 07/13/2016 07/13/2006, 06/13/2001, 05/02/1998, Additional history exists COVID-19 VACCINE (1 - 2023- season) 2024 DEPRESSION SCREENING 11/22/2024 INFLUENZA VACCINE (Season Ended) 2025 ZOSTER VACCINE (1 of 2) 2046 HEPATITIS B VACCINE Completed 01/15/1997, 1996, 1996 HIB VACCINE Completed 05/02/1998, 12/24, 1996, Additional history exists MENINGOCOCCAL GROUPS A/C/Y/W VACCINE Aged Out 03/25/2010 No longer eligible based on patient's age to complete this topic MENINGOCOCCAL (Group B) VACCINE SHARED DECISION-MAKING Aged Out No longer eligible based on patient's age to complete this topic PNEUMOCOCCAL VACCINE Aged Out No long er eligible based on patient's age to complete this topic Insurance [place] [id number] [facility] Care Teams Porcelain Turner Relationship Specialty Start Date End Date Mary Gomez MD PCP - Pediatrics 12/10/09 Mary Gomez MD PCP - General Pediatrics 05/05/12
--- OUTSIDE RECORDS SUMMARY | 2025-04-03 19:53 | XMS_ITS | Clinical Summary ---
Author Organization [facility] Address [address] [address] Phone Care Team Providers Care Engagement Mgr Name Role Phone SumayaAdail chisholm PAC Primary Care Provider [phone] Bonnie Ordonez APRN, TEMPLATE LAYOUT WORKER Unavailable Medications Buprenorphine HCl-Naloxone HCl (Suboxone) 4-1 MG FILM 1 Film by Sublingual route daily. Patient takes 4 mg, one film per day Active gabapentin (NEURONTIN) 100 MG Capsule Take 200 mg by mouth daily. Active carvedilol (COREG) 6.25 MG Tablet Take 6.25 mg by mouth. 4 Active cloNIDine (CATAPRES) 0.1 MG Tablet 1 tablet Orally two times daily for 30 days As needed 4 Active docusate sodium 100 MG Capsule Take 100 mg by mouth. 4 Active Lexapro 10 MG Tablet 1 tablet Orally Once a day for 30 days 4 Active hydrOXYzine (ATARAX) 50 MG Tablet 1 tablet Orally Once a day at bedtime for 30 days As needed Active Active Problems Problem Noted Date Diagnosed Date Functional diarrhea 02/11/2024 Overview (06/12/2024): Last Assessment & Plan: Persistent diarrhea. It seems as though this is probably his normal stooling as he is off all the other medications. May pull back on the fiber. May use Imodium if needed to calm things down. Recommend referral to GI as this has been persistent for years and probably would benefit from colonoscopy. He has not had labs in over a year so will obtain and check stool cultures and celiac labs. Hypertension, essential 02/11/2024 Overview (06/12/2024): Last Assessment & Plan: Continue Coreg 6.25. Does well blood pressure control as well as anxiety. Anxiety 07/22/2020 Overview (06/12/2024): Last Assessment & Plan: Patient with history of opioid dependency/abuse. Continues to follow with chest not for management of his Suboxone and Neurontin. He is on Coreg for help with tachycardia/anxiety. Gastroesophageal reflux disease 10/16/2019 Overview (06/12/2024): Last Assessment & Plan: Continue PPI p.r.n. Irritable bowel syndrome with constipation 10/16 Opioid dependence in remission 10/16/2019 Overview (06/12/2024): Last Assessment & Plan: Patient with history of opioid dependency/abuse. Continues to follow with chest not for management of his Suboxone and Neurontin. He is on Coreg for help with tachycardia/anxiety. Scoliosis 04/17/2010 Family History Medical History Relation Name Comments Congestive Heart Failure Father Diabetes Father Relation Name Status Comments Father Alive Maternal Grandfather Maternal Grandmother Mother Alive Paternal Grandfather Paternal Grandmother Sister Alive half sister Social History Tobacco Use Types Packs/Day Years Used Date Smoking Tobacco: Former Cigarettes Smokeless Tobacco: Former Tobacco Cessation:Counseling Given: Not Answered Alcohol Use Standard Drinks/Week Comments Not Currently 0 (1 standard drink = 0.6 oz pur e alcohol) Sexually Active Control Partners Comments Yes Sex and Gender Information Value Date Recorded Sex Assigned at Not on file Legal Sex Male 10:10 AM CDT Gender Identity Not on file Sexual Orientation Not on file Last Filed Vital Signs Vital Sign Reading Time Taken Comments Blood Pressure 110/68 09/18/2024 9:32 AM CDT Pulse 83 09/18/2024 9:32 AM CDT Temperature 37 C (98.6 F) 09/18/2024 9:32 AM CDT Respiratory Rate 16 09/18/2024 9:32 AM CDT Oxygen Saturation 98% 09/18/2024 9:32 AM CDT Inhaled Oxygen Concentration - - Weight 70 kg (154 lb 4.8 oz) 09/18/2024 9:32 AM CDT Height 177.8 cm (5' 10 ) 09/18/2024 9:32 AM CDT Body Mass Index 22.14 09/18/2024 9:32 AM CDT Plan of Treatment Health Maintenance Due Date Last Done Comments Hepatitis C Virus (HCV) Screening 1996 SARS-COV-2 Immunization ( season) 2024 08/15/2022, 11/07/2021, 04/10/2021, Additional history exists Influenza Immunization (Season Ended) 2025 09/15/2023, 08/29/2022, 09/19/2021, Additional history exists Respiratory Syncytial Virus (RSV) Immunization (Adult) (1 - 1-dose 75+ series) 2071 Hepatitis B Immunization Completed 997, 1996, 1996 TdaP Immunization Completed 07/13/2006 Meningococcal Immunization (ACWY) Aged Out 03/25/2010 No longer eligible based on patient's age to complete this topic Pneumococcal Immunization Combined Aged Out No longer eligible based on patient's age to complete this topic Rotavirus Immunization Aged Out No lo nger eligible based on patient's age to complete this topic Insurance MEDICAID [employer] Care Teams Engagement Mgr Relationship Specialty Start Date End Date Adali Solomon PAC [facility] [address] [place] [address] PCP - General Physician Chiropractic Neurologist 06/12/24 Bonnie Ordonez APRN, TEMPLATE LAYOUT WORKER [address] [place] [address] Nurse Practitioner Advanced Practice Nurse 06/12/24
--- NOTE | 2025-04-03 20:55 | ED_ITS ---
HPI - General Adult General Chief complaint: Extremity Problem,Nontraumatic <Hilton Wheeler MD - Last Filed: 04/03/25 20:58> Stated complaint: right hand redness/swelling <Hilton Wheeler MD - Last Filed: 04/03/25 20:58> Time Seen by Provider: 04/03/25 20:45 <Hilton Wheeler MD - Last Filed: 04/03/25 20:58> History of Present Illness HPI narrative: Patient 29-year-old gentleman who presents emergency department with chief complaint of right hand pain. Patient was sent from a local urgent care facility after they noticed that his hand was red and raised and they felt it was too complicated for to dealt with in the urgent care <Hilton Wheeler MD - Last Filed: 04/03/25 20:58> Related Data Home medications: Home Medications Medication Instructions Recorded Confirmed Last Taken Type buprenorphine 4 mg-naloxone 1 mg 1 film sublingual DAILY 12/06/21 10/10/24 Unknown History sublingual film clonidine HCl 0.1 mg tablet 0.1 mg PO BID 10/10/24 10/10/24 Unknown History escitalopram oxalate 10 mg tablet 10 mg PO DAILY 10/10/24 10/10/24 Unknown History hydroxyzine HCl 50 mg tablet 50 mg PO HS PRN insomnia 10/10/24 10/10/24 Unknown History <Hilton Wheeler MD - Last Filed: 04/03/25 20:58> Allergies/adverse reactions: Allergies Allergy/AdvReac Type Severity Reaction Status Date / Time gluten AdvReac Diarrhea Verified 04/03/25 20:30 <Hilton Wheeler MD - Last Filed: 04/03/25 20:58> Review of Systems 2 Review of Systems: A 10 system review of systems was completed on the patient and is negative except for what is stated in the HPI. Nursing and ancillary documentation was reviewed. <Hilton Wheeler MD - Last Filed: 04/03/25 20:58> PMFSH Past Medical History Medical History: Medical History Anxiety <Hilton Wheeler MD - Last Filed: 04/03/25 20:58> Social History Social History: Social History Smoking status: Current every day smoker Tobacco type: cigarettes and e-cigarettes/vaping Additional smoking assessment comments: no longer uses cigarettes; currently vapes Alcohol intake: never Substance use: former Substance use type: heroin Other substance usage details: fentanyl Spiritual care concerns: No <Hilton Wheeler MD - Last Filed: 04/03/25 20:58> Exam 2 Narrative: GENERAL: Well-appearing, well-nourished, and in no acute distress. HEAD: Normocephalic, atraumatic. EYES: PERRLA and EOMI. ENT: Nares clear, no rhinorrhea or epistaxis. Mucous membranes moist. NECK: Supple. CHEST: Clear to auscultation. No respiratory distress. HEART: Regular rate and rhythm. No murmur heard. Normal peripheral pulses. ABDOMEN: Soft, nontender, nondistended, normal active bowel sounds. EXTREMITIES: Normal range of motion. No edema. SKIN: Warm, dry, no rash. There is redness present to the dorsum of the right hand the early there is swelling present is tender to palpation and there is no crepitance no fluctuance NEURO: No focal deficits. Alert and oriented x3. PSYCH: Normal mood and affect. <Hilton Wheeler MD - Last Filed: 04/03/25 20:58> Course Course Emergency Course: ZYCH: 29-year-old fentanyl user (injection) presenting with swelling to his right hand. Signed out to me pending CT imaging. CT imaging showed extensor tendon synovitis with surrounding cellulitis. White count normal but ESR and CRP are elevated. Patient started pip/tazo and vancomycin. Re-evaluation the patient is starting to undergo withdrawal. Cows score 17. Last fentanyl use 6 hours ago. Patient given [address] Herbert has been contacted and will see the patient tomorrow morning. Patient admitted for further management COWS Score for Opiate Withdrawal from [employer] on 04/03/2025 All calculations should be rechecked by clinician prior to use RESULT SUMMARY: 17 points Moderate withdrawal INPUTS: Resting Pulse Rate (BPM) —> 2 = 101-120 Sweating —> 1 = Subjective report of chills or flushing Restlessness observation during assessment —> 5 = Unable to sit still for more than a few seconds Pupil size —> 2 = Pupils moderately dilated Bone or joint aches —> 1 = Mild diffuse discomfort Runny nose or tearing —> 1 = Nasal stuffiness or unusually moist eyes GI Upset —> 1 = Stomach Cramps Tremor observation of outstretched hands —> 2 = Slight tremor observable Yawning observation during assessment —> 0 = No yawning Anxiety or irritability —> 2 = Patient obviously irritable/anxious Gooseflesh skin —> 0 = Skin is smooth <Maykel Ballard MD - Last Filed: 04/03/25 22:57> Vital Signs Vital signs: Vital Signs Temperature 99.1 F 04/03/25 19:53 Pulse Rate 110 H 04/03/25 19:53 Respiratory Rate 18 04/03/25 19:53 Blood Pressure 145/83 H 04/03/25 19:53 Pulse Oximetry 98 04/03/25 19:53 Oxygen Delivery Room Air 04/03/25 19:53 Temperature 99.1 F 04/03/25 19:53 Pulse Rate 110 H 04/03/25 19:53 Respiratory Rate 18 04/03/25 19:53 Blood Pressure 145/83 H 04/03/25 19:53 Pulse Oximetry 98 04/03/25 19:53 Oxygen Delivery Room Air 04/03/25 19:53 <Hilton Wheeler MD - Last Filed: 04/03/25 20:58> Vital Signs Temperature 99.1 F 04/03/25 19:53 Pulse Rate 110 H 04/03/25 19:53 Respiratory Rate 18 04/03/25 19:53 Blood Pressure 145/83 H 04/03/25 19:53 Pulse Oximetry 98 04/03/25 19:53 Oxygen Delivery Room Air 04/03/25 19:53 Temperature 99.1 F 04/03/25 19:53 Pulse Rate 110 H 04/03/25 19:53 Respiratory Rate 18 04/03/25 19:53 Blood Pressure 145/83 H 04/03/25 19:53 Pulse Oximetry 98 04/03/25 19:53 Oxygen Delivery Room Air 04/03/25 19:53 <Maykel Ballard MD - Last Filed: 04/03/25 22:57> Medical Decision Making Vital Signs Vital Signs: Vital Signs Temperature 99.1 F 04/03/25 19:53 Pulse Rate 110 H 04/03/25 19:53 Respiratory Rate 18 04/03/25 19:53 Blood Pressure 145/83 H 04/03/25 19:53 Pulse Oximetry 98 04/03/25 19:53 Oxygen Delivery Room Air 04/03/25 19:53 Temperature 99.1 F 04/03/25 19:53 Pulse Rate 110 H 04/03/25 19:53 Respiratory Rate 18 04/03/25 19:53 Blood Pressure 145/83 H 04/03/25 19:53 Pulse Oximetry 98 04/03/25 19:53 Oxygen Delivery Room Air 04/03/25 19:53 <Hilton Wheeler MD - Last Filed: 04/03/25 20:58> Vital Signs Temperature 99.1 F 04/03/25 19:53 Pulse Rate 110 H 04/03/25 19:53 Respiratory Rate 18 04/03/25 19:53 Blood Pressure 145/83 H 04/03/25 19:53 Pulse Oximetry 98 04/03/25 19:53 Oxygen Delivery Room Air 04/03/25 19:53 Temperature 99.1 F 04/03/25 19:53 Pulse Rate 110 H 04/03/25 19:53 Respiratory Rate 18 04/03/25 19:53 Blood Pressure 145/83 H 04/03/25 19:53 Pulse Oximetry 98 04/03/25 19:53 Oxygen Delivery Room Air 04/03/25 19:53 <Maykel Ballard MD - Last Filed: 04/03/25 22:57> Lab Data Result diagrams: 04/03/25 21:52 04/03/25 21:20 <Hilton Wheeler MD - Last Filed: 04/03/25 20:58> Labs: Lab Results 04/03/25 04/03/25 Range/Units 21:20 21:52 WBC 7.8 (4.5-10.0) K/mm3 RBC 4.39 L (4.6-6.20) M/mm3 Hgb 13.1 L (14.0-18.0) g/dL Hct 40.6 L (42.0-52.0) % MCV 92.5 (80-100) fl MCH 29.8 (26-34) pg MCHC 32.3 (32-36) g/dl RDW 12.9 (11.5-14.5) % Plt Count 311 D (150-375) k/mm3 MPV 9.9 (7.4-10.4) fl Immature Gran % (Auto) 0.4 (0-0.5) % Neut % (Auto) 62.2 (45.5-73.1) % Lymph % (Auto) 23.5 (18.3-44.2) % [place] % (Auto) 11.2 H (2.6-8.5) % Eos % (Auto) 1.8 (0-4.4) % Baso % (Auto) 0.9 (0.2-1.2) % Lymph # (Auto) 1.83 (0.9-3.2) K/mm3 [place] # (Auto) 0.9 H (0.1-0.6) K/mm3 Eos # (Auto) 0.1 (0-0.3) K/mm3 Baso # (Auto) 0.1 (0.0-0.1) K/mm3 Abs Immat Gran (auto) 0.03 (0.00-0.031) K/mm3 Absolute Neuts (auto) 4.9 (1.3-6.7) K/mm3 Absolute Nucleated RBC 0.000 (0.0-0.012) K/mm3 Nucleated RBC % 0.0 (0.0-0.2) % ESR 47 H (0-20) mm/hr Sodium 139 (137-145) mmol/L Potassium 3.8 (3.4-5.0) mmol/L Chloride 100 (98-107) mmol/L Carbon Dioxide 30 (22-30) mmol/L Anion Gap 9 (4-12) mmol/L BUN 8 L (9-20) mg/dL Creatinine 0.66 L (0.7-1.3) mg/dL Estim Creat Clear Calc 141 ml/min Estimated GFR > 60 (59 - ) Glucose 91 (65-110) mg/dL Lactic Acid 1.1 (0.7-2.0) mmol/L Calcium 9.3 (8.4-10.2) mg/dL Total Bilirubin 0.5 (0.2-1.3) mg/dL AST 28 (17-59) U/L ALT 28 (6-50) U/L Alkaline Phosphatase 95 (38-126) U/L Total Creatine Kinase 93 (55-170) U/L C-Reactive Protein 4.8 H (<1.0) mg/dL Total Protein 8.0 (6.3-8.2) g/dL Albumin 4.6 (3.5-5.1) g/dL Procalcitonin 0.5 ng/mL <Hilton Wheeler MD - Last Filed: 04/03/25 20:58> Lab Results 04/03/25 04/03/25 Range/Units 21:20 21:52 WBC 7.8 (4.5-10.0) K/mm3 RBC 4.39 L (4.6-6.20) M/mm3 Hgb 13.1 L (14.0-18.0) g/dL Hct 40.6 L (42.0-52.0) % MCV 92.5 (80-100) fl MCH 29.8 (26-34) pg MCHC 32.3 (32-36) g/dl RDW 12.9 (11.5-14.5) % Plt Count 311 D (150-375) k/mm3 MPV 9.9 (7.4-10.4) fl Immature Gran % (Auto) 0.4 (0-0.5) % Neut % (Auto) 62.2 (45.5-73.1) % Lymph % (Auto) 23.5 (18.3-44.2) % [place] % (Auto) 11.2 H (2.6-8.5) % Eos % (Auto) 1.8 (0-4.4) % Baso % (Auto) 0.9 (0.2-1.2) % Lymph # (Auto) 1.83 (0.9-3.2) K/mm3 [place] # (Auto) 0.9 H (0.1-0.6) K/mm3 Eos # (Auto) 0.1 (0-0.3) K/mm3 Baso # (Auto) 0.1 (0.0-0.1) K/mm3 Abs Immat Gran (auto) 0.03 (0.00-0.031) K/mm3 Absolute Neuts (auto) 4.9 (1.3-6.7) K/mm3 Absolute Nucleated RBC 0.000 (0.0-0.012) K/mm3 Nucleated RBC % 0.0 (0.0-0.2) % ESR 47 H (0-20) mm/hr Sodium 139 (137-145) mmol/L Potassium 3.8 (3.4-5.0) mmol/L Chloride 100 (98-107) mmol/L Carbon Dioxide 30 (22-30) mmol/L Anion Gap 9 (4-12) mmol/L BUN 8 L (9-20) mg/dL Creatinine 0.66 L (0.7-1.3) mg/dL Estim Creat Clear Calc 141 ml/min Estimated GFR > 60 (59 - ) Glucose 91 (65-110) mg/dL Lactic Acid 1.1 (0.7-2.0) mmol/L Calcium 9.3 (8.4-10.2) mg/dL Total Bilirubin 0.5 (0.2-1.3) mg/dL AST 28 (17-59) U/L ALT 28 (6-50) U/L Alkaline Phosphatase 95 (38-126) U/L Total Creatine Kinase 93 (55-170) U/L C-Reactive Protein 4.8 H (<1.0) mg/dL Total Protein 8.0 (6.3-8.2) g/dL Albumin 4.6 (3.5-5.1) g/dL Procalcitonin 0.5 ng/mL <Maykel Ballard MD - Last Filed: 04/03/25 22:57> Discharge Plan Discharge Clinical Impression: Extensor tenosynovitis of right wrist, Mild fentanyl abuse, Opiate withdrawal <Hilton Wheeler MD - Last Filed: 04/03/25 20:58> Patient Disposition: Still a Patient <Hilton Wheeler MD - Last Filed: 04/03/25 20:58> Condition: Stable <Hilton Wheeler MD - Last Filed: 04/03/25 20:58> Patient Language: Pakistani <Hilton Wheeler MD - Last Filed: 04/03/25 20:58> Prescriptions: No Action buprenorphine-naloxone 4-1 mg film 1 film sublingual DAILY clonidine HCl 0.1 mg tablet 0.1 mg PO BID hydroxyzine HCl 50 mg tablet 50 mg PO HS PRN (Reason: insomnia) escitalopram oxalate 10 mg tablet 10 mg PO DAILY <Hilton Wheeler MD - Last Filed: 04/03/25 20:58> Follow-up/Referrals: Neha,MEENU Bro [Primary Care Provider] - <Hilton Wheeler MD - Last Filed: 04/03/25 20:58>
[2025-04-03] MEDS: SODIUM CHLORIDE 0.9% IV 1,000 ML 999 ML IV CONT (21:23)
--- OUTSIDE RECORDS SUMMARY | 2025-04-03 21:28 | XMS_ITS | Clinical Summary ---
Author Organization [facility] Address [address] [place] [id number] Care Team Providers Care Teachers Assistant Name Role Phone Unavailable Primary Care Provider [...]
--- OUTSIDE RECORDS SUMMARY | 2025-04-03 21:28 | XMS_ITS | Clinical Summary ---
Author Organization [facility] [employer] Address [address] [place] [address] Care Team Providers Care Digital Marketing Coordinator Name Role Phone Mary Gomez MD Unavailable Mary Gomez MD Primary Care Provider [phone] Source Comments [facility] [employer],non-owned Affiliates and Associated Physician Practices is amultiple site organization consisting of ambulatory clinics and hospital sitesin [place], [place], [place] and [place]. This disclosure is being madepursuant to the Care Everywhere program and may not contain all information available regarding this patient. 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
--- OUTSIDE RECORDS SUMMARY | 2025-04-03 21:28 | XMS_ITS | Referral Summary ---
Author Organization [facility] Address [address] [place] [address] Care Team Providers Care Grain Elevator Worker Name Role Phone Adali Solomon Primary Care Provider [phone]- [phone] Allergies No known active allergies Medications buprenorphine-nalox one (SUBOXONE) 4-1 mg per film 1 Film daily Activ e gabapentin (NEURONTIN) 100 mg capsule Take 1 capsule (100 mg total) by mouth 3 (three) times a day 4 Active docusate sodium (COLACE) 100 mg capsuleIndications: constipation Take 1 capsule (100 mg total) by mouth daily 30 capsule 1 4 Active ondansetron ODT (ZOFRAN-ODT) 4 mg disintegrating tablet Take 1 tablet (4 mg total) by mouth every 8 (eight) hours as needed for nausea or vomiting 20 tablet 4 Active carvediloL (COREG) 6.25 mg tabletIndications:H ypertension, essential Take 1 tablet (6.25 mg total) by mouth 2 (two) times a day with meals 60 tablet 6 4 Active cloNIDine (CATAPRES) 0.1 mg tablet Take 1 tablet (0.1 mg total) by mouth 2 (two) times a day 4 Active escitalopram (LEXAPRO) 10 mg tablet Take 1 tablet (10 mg total) by mouth daily 4 Active hydrOXYzine (ATARAX) 25 mg tablet 1-2 tablets Orally Once a day at bedtime for 30 days As needed Active prochlorperazine (COMPAZINE) 10 mg tablet Take 1 tablet (10 mg total) by mouth Active Active Problems Problem Noted Date Diagnosed Date Other constipation 02/11/2024 Assessment & Plan (02/11/2024 8:23 PM CDT): Patient is having alternating diarrhea and constipation. Could be an IBS but I am also suspicious that it may be induced by alternating medications for treatment of the diarrhea and constipation with Imodium and Dulcolax. Encouraged to stop the Dulcolax and the Imodium. Encouraged to increase fiber. Provided handout showing high-fiber foods and may even supplement with Metamucil or fiber supplements [id number]. He can do a Colace once a day as he is on Suboxone and encouraged activity. Encouraged to monitor stools see if he can get back into a normal pattern. If he lens 1 where the other may need to add additional treatment but at this point will hold off and try to reduce the cycling that seems to be happening. Patient verbalized understanding. Follow-up in 2 months to reassess or sooner for any other problems or concerns Functional diarrhea 02/11/2024 Assessment & Plan (04/04/2024 4:14 PM CDT): Persistent diarrhea. It seems as though this [...] and check stool cultures and celiac labs. Assessment & Plan (02/11/2024 8:23 PM CDT): Patient is having alternating diarrhea and constipation. Could be an IBS but I am also suspicious that it may be induced by alternating medications for treatment of the diarrhea and constipation with Imodium and Dulcolax. Encouraged to stop the Dulcolax and the Imodium. Encouraged to increase fiber. Provided handout showing high-fiber foods and may even supplement with Metamucil or fiber supplements [id number]. He can do a Colace once a day as he is on Suboxone and encouraged activity. Encouraged to monitor stools see if he can get back into a normal pattern. If he lens 1 where the other may need to add additional treatment but at this point will hold off and try to reduce the cycling that seems to be happening. Patient verbalized understanding. Follow-up in 2 months to reassess or sooner for any other problems or concerns Hypertension, essential 02/11/2024 Assessment & Plan (04/04/2024 4:13 PM CDT): Continue Coreg 6.25. Does well blood pressure control as well as anxiety. Assessment & Plan (02/11/2024 8:22 PM CDT): Bp is stable/in acceptable range for any co-morbidities. Encouraged to limit sodium intake and exercise for weight control. Blood pressure and tachycardia are stable with the Coreg 6.25 bid Hyperglycemia 02/07/2023 Assessment & Plan (02/07/2023 4:26 PM CDT): Insert hyperglycemia Adult BMI <19 kg/sq m 01/27/2023 Assessment & Plan (04/04/2024 4:06 PM CDT): Weight/BMI is in healthy range. Continue healthy lifestyle to maintain. Assessment & Plan (02/11/2024 8:21 PM CDT): Weight/BMI is in healthy range. Continue healthy lifestyle to maintain. Assessment & Plan (01/27/2023 8:37 AM CLINICAL SUPPORT ASSOCIATE): Weight/BMI is in healthy range. Continue healthy lifestyle. Annual physical exam 01/26/2023 Assessment & Plan (02/11/2024 8:21 PM CDT): Encouraged healthy lifestyle, good nutrition and exercise. Encouraged Calcium and Vitamin D and weight bearing exercise for bone health. Reviewed immunizations Reviewed age appropirate screenings. Assessment & Plan (02/07/2023 4:25 PM CDT): Encouraged healthy lifestyle, good nutrition and exercise. Encouraged Calcium and Vitamin D and weight bearing exercise for bone health. Reviewed immunizations Reviewed age appropirate screenings. Vapes nicotine containing substance 09/07/2020 Assessment & Plan (02/11/2024 8:21 PM CDT): Encouraged smoking cessation. Discussed 3 minutes. Reviewed options for assistance with cessation. Reviewed manager terminal sequela associated with smoking. Pt declines assistance at this time but may contact the office at anytime for further help as they desire. Assessment & Plan (02/07/2023 4:25 PM CDT): Encouraged smoking cessation. Discussed 3 minutes. Reviewed options for assistance with cessation. Reviewed manager terminal sequela associated with smoking. Pt declines assistance at this time but may contact the office at anytime for further help as they desire. Assessment & Plan (11/03/2020 10:20 AM CLINICAL SUPPORT ASSOCIATE): Encouraged smoking cessation. Discussed 3 minutes. Reviewed options for assistance with cessation. Reviewed manager terminal sequela associated with smoking. Pt declines assistance at this time but may contact the office at anytime for further help as they desire. Assessment & Plan (09/07/2020 8:35 PM CDT): Encouraged smoking cessation. Discussed 3 minutes. Reviewed options for assistance with cessation. Reviewed manager terminal sequela associated with smoking. Pt declines assistance at this time but may contact the office at anytime for further help as they desire. Anxiety 07/22/2020 Assessment & Plan (02/11/2024 8:20 PM CDT): Patient with history of opioid dependency/abuse. Continues to follow with chest not for management of his Suboxone and Neurontin. He is on Coreg for help with tachycardia/anxiety. Assessment & Plan (02/07/2023 4:25 PM CDT): Continue per Dr. El. He has been on the beta-jenni to help with heart rate as well as some of the anxiety. Would like to transition back to Bystolic 2.5 so he only has to take it daily. Will continue to monitor symptoms and increase as needed. Assessment & Plan (03/31/2021 2:44 PM CDT): Continue the Coreg 6.25 b.i.d.. Continue with psychiatry for assistance with his other medications. Assessment & Plan (11/03/2020 10:20 AM CLINICAL SUPPORT ASSOCIATE): Continue per psychiatrist. Continue with the Coreg 6.25 b.i.d.. Continue to monitor blood pressure if he starts to have symptoms of dizziness or lightheadedness he is to call immediately. Assessment & Plan (09/07/2020 8:55 PM CDT): Discussed treatment options including SSRI/SNRI and antianxiolytics. Also discussed using BB and he then revealed he had been on one before and did well. Start Coreg 6.25mg bid. Monitor bp and pulse. F.u 4-6 weeks to reassess. Assessment & Plan (07/22/2020 8:36 PM CDT): Patient has been on Gabapentin and hydroxyzine. Still very anxious with today's visit. Will start lexapro. Reviewed risks, benefit, alternatives, side effects and proper use. F.u 6 weeks to reassess. Other fatigue 07/22/2020 Assessment & Plan (02/07/2023 4:25 PM CDT): Probably multifactorial. Check labs and followup to re-evaluate Assessment & Plan (07/22/2020 8:37 PM CDT): Probably multifactorial. Check labs and followup to re-evaluate Therapeutic opioid induced constipation 03/29/20 Opioid dependence in remission 10/16/2019 Assessment & Plan (02/11/2024 8:20 PM CDT): Patient with history of opioid dependency/abuse. Continues to follow with chest not for management of his Suboxone and Neurontin. He is on Coreg for help with tachycardia/anxiety. Assessment & Plan (02/07/2023 4:24 PM CDT): Continue with . Continues to decrease the Suboxone. Using gabapentin 200 daily with the hydroxyzine Assessment & Plan (09/07/2020 8:31 PM CDT): Continues with Suboxone with his network desktop support specialist. Assessment & Plan (07/22/2020 8:35 PM CDT): Clean for [address] Stearns Follows with him on a monthly basis Irritable bowel syndrome with constipation 10/16 Gastroesophageal reflux disease 10/16/2019 Assessment & Plan (02/07/2023 4:24 PM CDT): Continue PPI p.r.n. Rectal bleeding 09/29/2019 Overview (09/29/2019): Added automatically from request for surgery [id number] Acne 05/19/2011 Scoliosis 04/17/2010 Resolved Problems Problem Noted Date Diagnosed Date Resolved Date BMI 25.0-25.9,adult 03/31/2021 01/28/20 23 Assessment & Plan (03/31/2021 1:38 PM CDT): Weight/BMI is in healthy range. Continue healthy lifestyle to maintain. BMI 24.0-24.9, adult 11/03/2020 021 Assessment & Plan (11/03/2020 10:20 AM CLINICAL SUPPORT ASSOCIATE): Weight/BMI is in healthy range. Continue healthy lifestyle to maintain. Annual physical exam 07/22/2020 020 Assessment & Plan (07/22/2020 8:36 PM CDT): Encouraged healthy lifestyle, good nutrition and exercise. Encouraged Calcium and Vitamin D and weight bearing exercise for bone health. Reviewed immunizations Reviewed age appropirate screenings. Immunizations Immunization Administration Dates Next Due DTaP 06/13/2001, 8,01/15/1997,11/08,1996 Flucelvax Influenza Quad 09/13/2019,08/29/2018 HPV, Unspecified 03/25/2010 Hep A, Pediatric 02/24/2008,07/13/2006 Hep B, Adolescent or Pediatric 01/15/1997,1995,1996 Hib (PRP-D) 05/02/1998, 7,1996,08/28 IPV 06/13/2001, 7,1996,08/28 Influenza, Quadrivalent, Edita l Culture-based MDCK, Preservative Free, Antibiotic Free, Intramuscular 09/19/2021 Influenza, Quadrivalent, Spl it, Intramuscular 10/11/2020 Influenza, Quadrivalent, Spl it, Preservative Free, Intramuscular 09/15/2023,08/29/2022,08/26/2020 Influenza, Unspecified 12/23/2022(Deferr ed: Patient Refused),12/23/2021(Deferred: Patient Refused),12/23/2021(Deferred: Patient Refused),12/23/2020 MMR 06/13/2001,08/22/1997 Meningococcal MCV4P (Menactra) 03/25/2010 PPD TEST 06/13/2001 Tdap 07/13/2006 Varicella 03/25/2010,08/22/1997 Social History Tobacco Use Types Packs/Day Years Used Date Smoking Tobacco: Every Day Cigarettes Vaping Started: 01/31 Smokeless Tobacco: Never Tobacco Cessation:Ready to Q uit: Not Asked; Counseling Given: Not Answered Comments:vape Alcohol Use Standard Drinks/Week Comments Yes 0 (1 standard drink = 0.6 oz pur e alcohol) rare/socially AUDIT-C Answer Date Recorded Q1: How often do you have a drink containing alc ohol? Never 02/01/2024 Average Number of Drinks Not on file 024 Q3: How often do you have si x or more drinks on one occasion? Never 02/01/2024 PHQ-2 Answer Date Recorded PHQ-2 Total Score (If total score is 3 or more points, staff should administer the PHQ-9) 0 04/03/2024 Personal Safety Answer Date Recorded Getting School Help Needed Not on file 11/02 Sex and Gender Information Value Date Recorded Sex Assigned at Not on file Legal Sex Male 9:11 AM CLINICAL SUPPORT ASSOCIATE Gender Identity Not on file Sexual Orientation Not on file Last Filed Vital Signs Vital Sign Reading Time Taken Comments Blood Pressure 116/80 08/18/2024 6:15 PM CDT Pulse 120 08/18/2024 6:15 PM CDT Temperature 36.9 C (98.5 F) 08/18/2024 6:15 PM CDT Respiratory Rate 20 08/18/2024 6:15 PM CDT Oxygen Saturation 98% 08/18/2024 6:15 PM CDT Inhaled Oxygen Concentration - - Weight 53.8 kg (118 lb 8 oz) 08/18/2024 6:15 PM CDT Height 177.8 cm (5' 10 ) 08/18/2024 6:15 PM CDT Body Mass Index 17 08/18/2024 6:15 PM CDT Plan of Treatment Not on file Insurance [employer] Address: [facility] [id number] [place] [address] [facility] [employer]ETNA [facility] Advance Directives For more information, please contact: [phone] * Full Code (Latest Code Status on File) Date Activated Date Inactivated Comments 11/29/2019 12:18 PM 11/29/2019 7:39 PM Care Teams Grain Elevator Worker Relationship Specialty Start Date End Date Adali Solomon PA [address] [place] [address] PCP - General Internal Medicine 07/22/20
--- OUTSIDE RECORDS SUMMARY | 2025-04-03 21:28 | XMS_ITS | Clinical Summary ---
Author Organization [facility] Address [address] [address] Phone Care Team Providers Care Riveter Helper Name Role Phone SumayaAdali chisholm PAC Primary Care Provider +1- [phone] Bonnie Ordonez APRN, TRUCK BRACER Unavailable Medications Buprenorphine HCl-Naloxone HCl (Suboxone) 4-1 [...] Insurance MEDICAID [employer] Care Teams Riveter Helper Relationship Specialty Start Date End Date Adali Solomon PAC [facility] [address] [place] [address] PCP - General Physician Photography And Prints Curator 06/12/24 Bonnie Ordonez APRN, TRUCK BRACER [address] [place] [address] Nurse Practitioner Advanced Practice Nurse 06/12/24
--- OUTSIDE RECORDS SUMMARY | 2025-04-03 21:28 | XMS_ITS | Clinical Summary ---
Author Organization [facility] Address [address] [place] [address] Care Team Providers Care Lcac Operator Name Role Phone Adali Solomon Primary Care Provider +1- [phone] Allergies No known active allergies Medications buprenorphine-nalox [...] even supplement with Metamucil or fiber supplements [id number]. He can do a Colace once a [...] even supplement with Metamucil or fiber supplements [id number]. He can do a Colace once a [...] maintain. Assessment & Plan (01/27/2023 8:37 AM SUPERVISOR VARNISH): Weight/BMI is in healthy range. Continue healthy [...] Reviewed options for assistance with cessation. Reviewed termite control service representative sequela associated with smoking. Pt declines assistance at this time but may contact the office at anytime for further help as they desire. Assessment & Plan (02/07/2023 4:25 PM CDT): Encouraged smoking cessation. Discussed 3 minutes. Reviewed options for assistance with cessation. Reviewed termite control service representative sequela associated with smoking. Pt declines assistance at this time but may contact the office at anytime for further help as they desire. Assessment & Plan (11/03/2020 10:20 AM SUPERVISOR VARNISH): Encouraged smoking cessation. Discussed 3 minutes. Reviewed options for assistance with cessation. Reviewed termite control service representative sequela associated with smoking. Pt declines assistance at this time but may contact the office at anytime for further help as they desire. Assessment & Plan (09/07/2020 8:35 PM CDT): Encouraged smoking cessation. Discussed 3 minutes. Reviewed options for assistance with cessation. Reviewed termite control service representative sequela associated with smoking. Pt declines assistance [...] medications. Assessment & Plan (11/03/2020 10:20 AM SUPERVISOR VARNISH): Continue per psychiatrist. Continue with the Coreg [...] PM CDT): Continues with Suboxone with his risk control specialist. Assessment & Plan (07/22/2020 8:35 PM CDT): Clean for [address] Stearns Follows with him on a monthly basis Irritable bowel syndrome with constipation 10/16 Gastroesophageal reflux disease 10/16/2019 Assessment & Plan (02/07/2023 4:24 PM CDT): Continue PPI p.r.n. Rectal bleeding 09/29/2019 Overview (09/29/2019): Added automatically from request for surgery [id number] Acne 05/19/2011 Scoliosis 04/17/2010 Resolved Problems Problem Noted Date Diagnosed Date Resolved Date BMI 25.0-25.9,adult 03/31/2021 01/28/20 23 Assessment & Plan (03/31/2021 1:38 PM CDT): Weight/BMI is in healthy range. Continue healthy lifestyle to maintain. BMI 24.0-24.9, adult 11/03/2020 021 Assessment & Plan (11/03/2020 10:20 AM SUPERVISOR VARNISH): Weight/BMI is in healthy range. Continue healthy [...] PPD TEST 06/13/2001 Tdap 07/13/2006 Varicella 03/25/2010,08/22/1997 Surgical History Surgery Date Site/Laterality Comments ESOPHAGOGASTRODUODENOSCOPY 02/20/2019 - 03/21/2019 Medical History Medical History Date Comments Anxiety Depression Cyclical vomiting History of heroin abuse (HCC) tx w/suboxone History of colonoscopy with polypectomy 2013 Family History Medical History Relation Name Comments Hypertension Father No Known Problems Mother Relation Name Status Comments Father Alive Mother Alive Social History Tobacco Use Types Packs/Day Years [...] on file Legal Sex Male 9:11 AM SUPERVISOR VARNISH Gender Identity Not on file Sexual Orientation Not on file Obstetrics History Last Filed Vital Signs Vital Sign Reading [...] 08/18/2024 6:15 PM CDT Plan of Treatment Health Maintenance Due Date Last Done Comments Hepatitis C Screening 1996 HPV Vaccines (2 - Male 2-dos e series) 09/25/2010 03/25/2010 Pneumococcal vaccine <65 (1 of 2 - PCV) 2015 DTaP/Tdap/Td Vaccine (7 - Td or Tdap) 07/13/2016 07/13/2006, 06/13/2001, 05/02/1998, Additional history exists Covid-19 Vaccine (5 - 2023-2 5 season) 2024 08/15/2022, 11/07/2021, 04/10/2021, Additional history exists Regular Well Visit/Exam 18-64 01/31/2025, 01/27/2023, 07/22/2020 Depression Screening 04/03/2025 04/03/2024, 02/01/2024, 01/27/2023, Additional history exists Influenza Vaccine (Season Ended) 2025 09/15/2023, 08/29/2022, 09/19/2021, Additional history exists Hepatitis B Screening Completed 01/15/1997 , 1996, 1996 Varicella Vaccines Completed 03/25/2010, 08/22/1997 Insurance [employer] [facility] [employer] Address: [facility] [address] [place] [address] [employer] [facility] [employer] [facility] [facility] [employer] [facility] Advance Directives For more information, please contact: [phone] * Full Code (Latest Code Status on File) Date Activated Date Inactivated Comments 11/29/2019 12:18 PM 11/29/2019 7:39 PM Care Teams Lcac Operator Relationship Specialty [place] [address] [place] [id number] PCP - General Internal Medicine 07/22/20
[2025-04-03 21:43] LABS: Lactic Acid Reflex 1.1 mmol/L (0.7-2.0)
[2025-04-03 21:44] LABS: Creatine Kinase 93 U/L (55-170)
[2025-04-03 21:47] LABS: Alanine Aminotransferase 28 U/L (6-50); Albumin Level 4.6 g/dL (3.5-5.1); Alkaline Phosphatase 95 U/L (38-126); Anion Gap 9 mmol/L (4-12); Aspartate Amino Transferase 28 U/L (17-59); Bilirubin,Total 0.5 mg/dL (0.2-1.3); Blood Urea Nitrogen 8 mg/dL (9-20); CRP 4.8 mg/dL (<1.0); Calcium 9.3 mg/dL (8.4-10.2); Carbon Dioxide 30 mmol/L (22-30); Chloride 100 mmol/L (98-107); Estimated CRCL calculation 141 ml/min; Estimated Glomerular Filt Rate > 60; Glucose 91 mg/dL (65-110); Potassium 3.8 mmol/L (3.4-5.0); Sodium 139 mmol/L (137-145)
[2025-04-03 21:58] LABS: Basophils Absolute Auto 0.1 K/mm3 (0.0-0.1); Basophils Percent Auto 0.9 % (0.2-1.2); Eosinophils Absolute Auto 0.1 K/mm3 (0-0.3); Eosinophils Percent Auto 1.8 % (0-4.4); Hematocrit 40.6 % (42.0-52.0); Hemoglobin 13.1 g/dL (14.0-18.0); Immature Granulocyte Absolute 0.03 K/mm3 (0.00-0.031); Immature Granulocyte Percent A 0.4 % (0-0.5); Lymphocytes Absolute Auto 1.83 K/mm3 (0.9-3.2); Lymphocytes Percent Auto 23.5 % (18.3-44.2); Mean Corpuscular HGB Conc 32.3 g/dl (32-36); Mean Corpuscular Hemoglobin 29.8 pg (26-34); Mean Corpuscular Volume 92.5 fl (80-100); Mean Platelet Volume 9.9 fl (7.4-10.4); Monocytes Absolute Auto 0.9 K/mm3 (0.1-0.6); Monocytes Percent Auto 11.2 % (2.6-8.5); Neutrophils Absolute Auto 4.9 K/mm3 (1.3-6.7); Neutrophils Percent Auto 62.2 % (45.5-73.1); Platelet Count Result 311 k/mm3 (150-375); Red Blood Count 4.39 M/mm3 (4.6-6.20); Red Cell Distribution Width 12.9 % (11.5-14.5); White Blood Count 7.8 K/mm3 (4.5-10.0)
[2025-04-03 22:01] LABS: Procalcitonin 0.5 ng/mL
--- NOTE | 2025-04-03 22:17 | PC.NURSE ---
Pt vancomycin received in tube station and was found to be leaking. Kenroy in pharmacy notified and will send replacement.
[2025-04-03] MEDS: PIPERACILLN/TAZ 3.375GM/NS50ML 3.375 GM/50 ML BAG IVPB (22:20)
[2025-04-03 22:27] LABS: Erythrocyte Sedimentation Rate 47 mm/hr (0-20)
[2025-04-03] MEDS: VANCOMYCIN 1,500 MG/NS 500 ML 1,500 MG/500 ML BAG 250 MG IVPB (23:00)
[2025-04-03] MEDS: BUPRENORPHINE HCL (*CRX) 2 MG SUBLINGUAL TABLET 4 MG SUBLINGUAL (23:18)
--- NOTE | 2025-04-03 23:31 | PC.NURSE ---
Assumed care of patient after receiving report from ALBA Mullins @ [phone] Patient refused to put on hospital gown at this time.
[2025-04-03 23:39] VITALS: BP 129/81; PULSE 91; RESP 15; O2SAT 100
[2025-04-04] VITALS (14 sets, daily range): BP systolic 118–138; BP diastolic 68–79; PULSE 67–123; RESP 16–20; TEMP 36.4–37; O2SAT 98–100; BMI 22.3
--- NOTE | 2025-04-04 00:50 | ADMGEN ---
This patient, Patricio oPon, was admitted to IMU Room 203-01 at 0040. Patient/family oriented to hospital policies and general routines including ID bracelet, bed and alarms, visiting hours, pain management, procedures, bathroom and other care routines, personal items, smoking policy, room service/diet, and visiting hours. Information on how to activate the Rapid Response Team has been discussed. Patient/Family are encouraged to report perceived risks to care and to ask questions if they do not understand what they are told or what they should do.
[2025-04-04] MEDS: LACTATED RINGERS 1,000 ML 125 ML IV CONT ×2 (01:13→10:43)
[2025-04-04 03:01] LABS: Estimated CRCL calculation 158 ml/min; Estimated Glomerular Filt Rate > 60; Ethanol < 10 mg/dL (<10)
[2025-04-04 03:15] LABS: Amphetamine Screen Urine Negative (Negative); Barbiturate Screen Urine Negative (Negative); Benzodiazepines Screen Urine Negative (Negative); Cannabinoid Screen Urine Positive (Negative); Cocaine Screen Urine Negative (Negative); Methadone Screen Urine Negative (Negative); Opiate Screen Urine Negative (Negative); Phencyclidine Screen Urine Negative (Negative)
--- NOTE | 2025-04-04 03:20 | P.HP_ITS ---
H&P: HPI History of Present Illness Date/Time: 04/04/25 03:20 Chief Complaint: Cellulitis Narrative: Patient is a 29-year-old male with no significant past medical history other than being an IV drug abuser who presented to the ED due to possible cellulitis of his right hand. 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 Patient denies smoking but uses vaping and denies alcoholism. Patient reports that he had his last IV fentanyl use yesterday night. He could not confirm the continuity but noted that it was the size of a elena. Pertinent ED labs: WBC 7.8, hemoglobin 13.1, hematocrit 40.6, platelets 311, sodium 139, potassium 3.8, carbon dioxide 30, anion gap 9, creatinine 0.6, CRP 4.8 UDS positive for cannabinoids Ethanol level less than [address]: Extensor tenosynovitis of the hand and wrist. Infectious etiology should be considered in the differential. Adjacent subcutaneous stranding may represent edema or cellulitis. Apparent discontinuity of the fourth extensor tendon correlates with active range of motion or strength deficit in the fourth finger. MR of the hand would help better characterize this potential tendon injury. No acute osseous finding in the right hand or wrist. The patient is admitted to the setting of cellulitis of his right hand. The patient is currently on Zosyn and vancomycin. Due to the concerns of tendon involvement, the hand surgeon was consulted from the ED. MRI of the right hand has been ordered for further evaluation and treatment guidance, and ordered HIV, syphilis, and UDS. Patient reported he goes to the [facility] but has not been going regularly lately. [facility] Past Medical History Medical History Anxiety Social History Social History Years smoked: 3 Smoking status: Current every day smoker Tobacco type: e-cigarettes/vaping Additional smoking assessment comments: no longer uses cigarettes; currently vapes Alcohol intake: never Substance use: current Substance use type: opiates Other substance usage details: IV fentanyl Last use: 04/03/2025 Do You Feel Safe in your Home?: Yes Lack of Transportation: No Lack of Food: Never True Current Housing: I Have Housing Concerned About Future Housing: No Difficulty Paying Gas/Electric Bills: No Difficulty Paying for Meds: No Currently Unemployed: No Education: Associate Degree Difficulty w/ Childcare or Family Care: No Spiritual care concerns: No Meds Home Medications and Allergies Home Medications Medication Instructions Recorded Confirmed Type buprenorphine 4 mg-naloxone 1 mg 1 film sublingual DAILY 12/06/21 04/04/25 History sublingual film clonidine HCl 0.1 mg tablet 0.1 mg PO BID 10/10/24 04/04/25 History escitalopram oxalate 10 mg tablet 20 mg PO DAILY 10/10/24 04/04/25 History hydroxyzine HCl 50 mg tablet 50 mg PO HS PRN insomnia 10/10/24 04/04/25 History carvedilol 6.25 mg tablet 6.25 mg PO BIDWMEAL 04/04/25 04/04/25 History Allergies Allergy/AdvReac Type Severity Reaction Status Date / Time gluten AdvReac Diarrhea Verified 04/04/25 01:01 Vital Signs Vital Signs - 24 hr 04/03/25 19:53 04/03/25 23:39 04/04/25 00:25 Temperature 99.1 F Pulse Rate 110 H 91 110 H Respiratory Rate 18 15 20 Blood Pressure 145/83 H 129/81 118/71 Pulse Oximetry 98 100 100 Oxygen Delivery Room Air 04/04/25 02:00 Temperature Pulse Rate 92 Respiratory Rate Blood Pressure Pulse Oximetry Oxygen Delivery H&P: Results Labs Labs: Short CBC 04/03/25 Range/Units 21:52 WBC 7.8 (4.5-10.0) K/mm3 Hgb 13.1 L (14.0-18.0) g/dL Hct 40.6 L (42.0-52.0) % Plt Count 311 D (150-375) k/mm3 [facility] 04/03/25 04/04/25 21:20 02:45 Sodium 139 Potassium 3.8 Chloride 100 Carbon Dioxide 30 BUN 8 L Creatinine 0.66 L 0.59 L Glucose 91 Calcium 9.3 Cardiac Enzymes 04/03/25 Range/Units 21:20 Total Creatine Kinase 93 (55-170) U/L Liver Function 04/03/25 Range/Units 21:20 Total Bilirubin 0.5 (0.2-1.3) mg/dL AST 28 (17-59) U/L ALT 28 (6-50) U/L Alkaline Phosphatase 95 (38-126) U/L Albumin 4.6 (3.5-5.1) g/dL Assessment and Plan Assessment and plan (1) Marijuana use: Code(s): F12.90 - Cannabis use, unspecified, uncomplicated Status: Acute (2) Anxiety: Code(s): F41.9 - Anxiety disorder, unspecified Status: Acute (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n. for anxiety Consider Bentyl 20 mg p.o. q.6 hours p.r.n. for abdominal discomfort Methocarbamol 750 mg p.o. q.6 hours p.r.n. for muscle spasm Catapres 0.1 mg p.o. q.2 hours p.r.n. for heart/cold sweats or anxiety. Hold if BP less than 90/60 Monitor development of withdrawal symptoms Monitor LFTs Order ultrasound abdomen Hypoglycemic med protocol CBC and CMP including Mag and phos AST ALT Hepatitis panel, HIV Alcohol level UDS results Cellulitis Hand CT:Extensor tenosynovitis of the hand and wrist. Infectious etiology should be considered in the differential. Adjacent subcutaneous stranding may represent edema or cellulitis. Apparent discontinuity of the fourth extensor tendon, correlate for active range of motion or strength deficit in the fourth finger. MR of the hand would be helpful for better characterization of this potential tendon injury. No acute osseous finding in the right hand or wrist Continue Zosyn and vancomycin Ordered nasal MRSA Can deescalate vancomycin once a nasal MRSA is negative Monitor vitals Blood culture pending Hand surgeon consulted Hand MRI ordered DVT prophylaxis Lovenox 40 mg subQ daily Hospitalist [facility] Advance Care Plan I have confirmed that the patient's Advanced Care Plan is present, code status is documented, or surrogate decision maker is listed in patient medical record.: Yes Medication Reconciliation I have utilized all available resources to obtain, update and review the patients current medications (includes all prescriptions, OTC, herbals, cannabis, and nutritional supplements).: Yes
[2025-04-04 03:41] LABS: Syphilis IgG/IgM Antibody Negative (Negative)
[2025-04-04 04:00] LABS: HIV 1/2 Ab P24 Ag Result Negative (Negative)
[2025-04-04 04:02] LABS: Hepatitis B Surface Anti Res Negative
[2025-04-04] MEDS: PIPERACILLN/TAZ 3.375GM/NS50ML 3.375 GM/50 ML BAG IVPB ×2 (04:16→09:39)
[2025-04-04] MEDS: LORazepam INJ (*CRX) 2 MG/ML VIAL IV PUSH (04:19)
[2025-04-04 05:33] LABS: MRSA (PCR) NOT DETECTED (NOT DETECTE)
--- NOTE | 2025-04-04 09:30 | PC.NURSE ---
Instructed by Dr rogers to give Subutex. Med given. Verified no COWS needed. See new orders.
[2025-04-04] MEDS: carvediloL 6.25 MG TABLET PO ×2 (09:38→21:01)
[2025-04-04] MEDS: cloNIDine HCL 0.1 MG TABLET PO ×2 (09:38→17:54)
[2025-04-04] MEDS: ENOXAPARIN 40 MG/0.4 ML SYRINGE SUB-Q (09:39)
[2025-04-04] MEDS: ESCITALOPRAM OXALATE 10 MG TABLET 20 MG PO (09:39)
[2025-04-04] MEDS: BUPRENORPHINE HCL (*CRX) 2 MG SUBLINGUAL TABLET 4 MG SUBLINGUAL ×2 (10:05→21:02)
[2025-04-04] MEDS: VANCOMYCIN 1,500 MG/NS 500 ML 1,500 MG/500 ML BAG 250 MG IVPB ×2 (10:44→21:02)
[2025-04-04] MEDS: metroNIDAZOLE 500 MG TABLET PO ×2 (14:42→21:01)
--- NOTE | 2025-04-04 16:05 | PM.IMPN ---
Progress Note: A&P Assessment and Plan (1) Marijuana use: Code(s): F12.90 - Cannabis use, unspecified, uncomplicated Status: Acute (2) Anxiety: Code(s): F41.9 - Anxiety disorder, unspecified Status: Acute (3) Amphetamine abuse: Code(s): F15.10 - Other stimulant abuse, uncomplicated Status: Acute (4) Mild fentanyl abuse: Code(s): F11.10 - Opioid abuse, uncomplicated Status: Acute (5) Opiate withdrawal: Code(s): F11.93 - Opioid use, unspecified with withdrawal Status: Acute (6) Extensor tenosynovitis of right wrist: Code(s): M65.931 - Unspecified synovitis and tenosynovitis, right forearm Status: Acute Plan Drug abuse IV fentanyl abuser Continue Buprenorphine 4 mg SL daily Lorazepam 2 mg q.4 hours p.r.n. for anxiety Consider Bentyl 20 mg p.o. q.6 hours p.r.n. for abdominal discomfort Methocarbamol 750 mg p.o. q.6 hours p.r.n. for muscle spasm Catapres 0.1 mg p.o. q.2 hours p.r.n. for heart/cold sweats or anxiety. Hold if BP less than 90/60 Monitor development of withdrawal symptoms Alcohol level negative UDS results positive cannabinoids Cellulitis Hand CT:Extensor tenosynovitis of the hand and wrist. Infectious etiology should be considered in the differential. Adjacent subcutaneous stranding may represent edema or cellulitis. Apparent discontinuity of the fourth extensor tendon, correlate for active range of motion or strength deficit in the fourth finger. MR of the hand would be helpful for better characterization of this potential tendon injury. No acute osseous finding in the right hand or wrist Continue cefepime, Flagyl and vancomycin Ordered nasal MRSA Can deescalate vancomycin once a nasal MRSA is negative Monitor vitals Blood culture pending Hand surgeon consulted Hand MRI pending DVT prophylaxis Lovenox 40 mg subQ daily Subjective Date/time seen: 04/04/25 16:05 Interval history: per HPI: Patient is a 29-year-old male with no significant past medical history other than being an IV drug abuser who presented to the ED due to possible cellulitis of his right hand. 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 Patient denies smoking but uses vaping and denies alcoholism. Patient reports that he had his last IV fentanyl use yesterday night. He could not confirm the continuity but noted that it was the size of a elena. Pertinent ED labs: WBC 7.8, hemoglobin 13.1, hematocrit 40.6, platelets 311, sodium 139, potassium 3.8, carbon dioxide 30, anion gap 9, creatinine 0.6, CRP 4.8 UDS positive for cannabinoids Ethanol level less than [address]: Extensor tenosynovitis of the hand and wrist. Infectious etiology should be considered in the differential. Adjacent subcutaneous stranding may represent edema or cellulitis. Apparent discontinuity of the fourth extensor tendon correlates with active range of motion or strength deficit in the fourth finger. MR of the hand would help better characterize this potential tendon injury. No acute osseous finding in the right hand or wrist. 04/04/25 Patient was in agreement with that. Feeling better. Still cannot extend his right side finger Denies any chest pain, shortness of breath, abdominal pain, nausea vomiting. Hand surgeon has been consulted. Continue with IV antibiotics. Review of Systems Review of Systems: A 10 system review of systems was completed on the patient and is negative except for what is stated in the HPI. Nursing and ancillary documentation was reviewed. Exam Narrative: GENERAL: Well-appearing, well-nourished, and in no acute distress. HEAD: Normocephalic, atraumatic. EYES: PERRLA and EOMI. ENT: Nares clear, no rhinorrhea or epistaxis. Mucous membranes moist. NECK: Supple. CHEST: Clear to auscultation. No respiratory distress. HEART: Regular rate and rhythm. No murmur heard. Normal peripheral pulses. ABDOMEN: Soft, nontender, nondistended, normal active bowel sounds. EXTREMITIES: Normal range of motion. No edema. SKIN: Warm, dry, no rash. There is redness present to the dorsum of the right hand the early there is swelling present is tender to palpation and there is no crepitance no fluctuance NEURO: No focal deficits. Alert and oriented x3. PSYCH: Normal mood and affect. Objective Data Vital Signs Vital Signs: Vital Signs - 24 hr 04/03/25 19:53 04/03/25 23:39 04/04/25 00:25 Temperature 99.1 F Pulse Rate 110 H 91 110 H Respiratory Rate 18 15 20 Blood Pressure 145/83 H 129/81 118/71 Pulse Oximetry 98 100 100 Oxygen Delivery Room Air 04/04/25 02:00 04/04/25 04:00 04/04/25 04:00 Temperature 97.6 F Pulse Rate 92 67 85 Respiratory Rate 17 Blood Pressure 129/79 Pulse Oximetry 100 Oxygen Delivery 04/04/25 06:00 04/04/25 08:00 04/04/25 08:08 Temperature 98.2 F Pulse Rate 104 H 101 H 103 H Respiratory Rate 18 Blood Pressure 131/73 Pulse Oximetry 98 Oxygen Delivery 04/04/25 09:38 04/04/25 10:00 04/04/25 11:33 Temperature 98.4 F Pulse Rate 109 H 94 106 H Respiratory Rate 16 Blood Pressure 126/75 Pulse Oximetry 100 Oxygen Delivery 04/04/25 12:00 Temperature Pulse Rate 97 Respiratory Rate Blood Pressure Pulse Oximetry Oxygen Delivery Intake/Output Intake/Output: Intake & Output 04/01/25 04/02/25 04/03/25 04/04/25 23:59 23:59 23:59 23:59 Intake Total 1050 1600 Balance 1050 1600 Meds/Results Medications: Active Medications Generic Name Dose Route Start Last Admin Trade Name Freq PRN Reason Stop Dose Admin Buprenorphine HCl 4 mg 04/05/25 09:00 Buprenorphine Hcl (*Crx) 2 Mg Sublingual Tablet SUBLINGUAL DAILY CANDY Carvedilol 6.25 mg 04/04/25 09:00 04/04/25 09:38 Carvedilol 6.25 Mg Tablet PO 6.25 mg Q12HR CANDY Administration Clonidine HCl 0.1 mg 04/04/25 09:00 04/04/25 09:38 Clonidine Hcl 0.1 Mg Tablet PO 0.1 mg BID CANDY Administration Enoxaparin Sodium 40 mg 04/04/25 09:00 04/04/25 09:39 Enoxaparin 40 Mg/0.4 Ml Syringe SUB-Q 40 mg DAILY CANDY Administration Escitalopram Oxalate 20 mg 04/04/25 09:00 04/04/25 09:39 Escitalopram Oxalate 10 Mg Tablet PO 20 mg DAILY CANDY Administration Vancomycin HCl 1,500 mg in 500 mls @ 250 mls/hr 04/03/25 22:00 04/04/25 10:44 Vancomycin 1,500 Mg/Ns 500 Ml IVPB 250 mls/hr Q12H CANDY Administration Lactated Ringer's 1,000 mls @ 125 mls/hr 04/03/25 23:00 04/04/25 10:43 Lr - Lactated Ringers Iv IV CONT 125 mls/hr .Q8H CANDY Administration Cefepime HCl 2 gm in 50 mls @ 100 mls/hr 04/04/25 19:00 Maxipime 2 Gm/Ns 50 Ml IVPB Q12HR CANDY Lorazepam 2 mg 04/04/25 02:29 04/04/25 04:19 Lorazepam Inj (*Crx) 2 Mg/Ml Vial IV PUSH 2 mg Q4H PRN Administration anxiety/withdrawal Metronidazole 500 mg 04/04/25 14:00 04/04/25 14:42 Metronidazole 500 Mg Tablet PO 500 mg Q8HR CANDY Administration Radiology Results: ITS Impressions Hand X-Ray 04/03/25 20:12 IMPRESSION: No acute osseous abnormality right hand. Hand CT 04/03/25 22:18 IMPRESSION: Extensor tenosynovitis of the hand and wrist. Infectious etiology should be considered in the differential. Adjacent subcutaneous stranding may represent edema or cellulitis. Apparent discontinuity of the fourth extensor tendon, correlate for active range of motion or strength deficit in the fourth finger. MR of the hand would be helpful for better characterization of this potential tendon injury. No acute osseous finding in the right hand or wrist. Labs Labs: Laboratory Results - last 24 hr 04/03/25 04/03/25 04/04/25 21:20 21:52 02:41 WBC 7.8 RBC 4.39 L Hgb 13.1 L Hct 40.6 L MCV 92.5 MCH 29.8 MCHC 32.3 RDW 12.9 Plt Count 311 D MPV 9.9 Immature Gran % (Auto) 0.4 Neut % (Auto) 62.2 Lymph % (Auto) 23.5 [place] % (Auto) 11.2 H Eos % (Auto) 1.8 Baso % (Auto) 0.9 Lymph # (Auto) 1.83 [place] # (Auto) 0.9 H Eos # (Auto) 0.1 Baso # (Auto) 0.1 Abs Immat Gran (auto) 0.03 Absolute Neuts (auto) 4.9 Absolute Nucleated RBC 0.000 Nucleated RBC % 0.0 ESR 47 H Sodium 139 Potassium 3.8 Chloride 100 Carbon Dioxide 30 Anion Gap 9 BUN 8 L Creatinine 0.66 L Estim Creat Clear Calc 141 Estimated GFR > 60 Glucose 91 Lactic Acid 1.1 Calcium 9.3 Total Bilirubin 0.5 AST 28 ALT 28 Alkaline Phosphatase 95 Total Creatine Kinase 93 C-Reactive Protein 4.8 H Total Protein 8.0 Albumin 4.6 Procalcitonin 0.5 Nasal MRSA (PCR) Urine Opiates Screen Urine Methadone Screen Ur Barbiturates Screen Ur Phencyclidine Scrn Ur Amphetamine Screen U Benzodiazepines Scrn Urine Cocaine Screen U Cannabinoids Screen Ethyl Alcohol Syphilis IgG/IgM Ab Hep Bs Antibody HIV-1 Antibody HIV-1 RNA, Qual (TMA) HIV-2 Antibody HIV 1&2 Ag/Ab, 4th Gen HIV 1&2 Ab/P24 Ag 4thGn Negative 04/04/25 04/04/25 04/04/25 02:45 02:47 04:13 WBC RBC Hgb Hct MCV MCH MCHC RDW Plt Count MPV Immature Gran % (Auto) Neut % (Auto) Lymph % (Auto) [place] % (Auto) Eos % (Auto) Baso % (Auto) Lymph # (Auto) [place] # (Auto) Eos # (Auto) Baso # (Auto) Abs Immat Gran (auto) Absolute Neuts (auto) Absolute Nucleated RBC Nucleated RBC % ESR Sodium Potassium Chloride Carbon Dioxide Anion Gap BUN Creatinine 0.59 L Estim Creat Clear Calc 158 Estimated GFR > 60 Glucose Lactic Acid Calcium Total Bilirubin AST ALT Alkaline Phosphatase Total Creatine Kinase C-Reactive Protein Total Protein Albumin Procalcitonin Nasal MRSA (PCR) Not detected Urine Opiates Screen Negative Urine Methadone Screen Negative Ur Barbiturates Screen Negative Ur Phencyclidine Scrn Negative Ur Amphetamine Screen Negative U Benzodiazepines Scrn Negative Urine Cocaine Screen Negative U Cannabinoids Screen Positive A Ethyl Alcohol < 10 Syphilis IgG/IgM Ab Negative Hep Bs Antibody Negative HIV-1 Antibody Cancelled HIV-1 RNA, Qual (TMA) Cancelled HIV-2 Antibody Cancelled HIV 1&2 Ag/Ab, 4th Gen Cancelled HIV 1&2 Ab/P24 Ag 4thGn
--- NOTE | 2025-04-04 16:32 | P.CONS_ITS ---
Assessment and Plan Assessment and plan (1) Cellulitis: Code(s): L03.90 - Cellulitis, unspecified Status: Acute Plan 29 y/o male h/o IV drug use, with right dorsal hand cellulitis and extensor tenosynovitis without open wound or abscess on exam, improving with IV and PO abx, AROM preserved. preliminary blood cultures negative, pt afebrile overnight, without fever/chills today. CT reviewed, agree with report. MRI recently obtained, imaging unavailable at this time. Reviewed impression with pt and pts mother, reviewed signs/symptoms of concern. discussed continued medical management, no indication for surgical washout at this time. discussed possible indication for washout in event fluid collection develops, discussed signs/symptoms/risk of secondary attrition rupture and possible procedures in event this occurs. reviewed activity instructions. pt voiced understanding and agreement. case discussed with Dr. Herbert. Plan 1) continue abx per primary 2) warm compress BID 3) AROM encouraged, RUE elevation encouraged 4) will continue to follow HPI Data of Consult Date/Time: 04/04/25 16:32 Requesting Physician: Clover Maldonado MD Primary Care Provider: Adali Solomon, PA Consult Narrative Narrative: 29 y/o male h/o IV drug use admitted through ER 04/03/25 for right dorsal hand cellulitis and extensor tenosynovitis. Pt reports dorsal hand redness at site of needle stick, increasing pain and redness for several days. Started on cefepime, Flagyl and vancomycin, with improvement in pain overnight. Pt denies fever/chills, body aches, fatigue, decreased sensation. Currently avoiding AROM due to moderate pain with movement. Pts mother present for visit. Review of Systems 2 Respiratory: Respiratory: Denies chest congestion, Denies cough and Denies dyspnea PMFSH Past Medical History Medical History Anxiety Social History Social History Years smoked: 3 Smoking status: Current every day smoker Tobacco type: e-cigarettes/vaping Additional smoking assessment comments: no longer uses cigarettes; currently vapes Alcohol intake: never Substance use: current Substance use type: opiates Other substance usage details: IV fentanyl Last use: 04/03/2025 Do You Feel Safe in your Home?: Yes Lack of Transportation: No Lack of Food: Never True Current Housing: I Have Housing Concerned About Future Housing: No Difficulty Paying Gas/Electric Bills: No Difficulty Paying for Meds: No Currently Unemployed: No Education: Associate Degree Difficulty w/ Childcare or Family Care: No Spiritual care concerns: No Meds Home Medications and Allergies Home Medications Medication Instructions Recorded Confirmed Type buprenorphine 4 mg-naloxone 1 mg 1 film sublingual DAILY 12/06/21 04/04/25 History sublingual film clonidine HCl 0.1 mg tablet 0.1 mg PO BID 10/10/24 04/04/25 History escitalopram oxalate 10 mg tablet 20 mg PO DAILY 10/10/24 04/04/25 History hydroxyzine HCl 50 mg tablet 50 mg PO HS PRN insomnia 10/10/24 04/04/25 History carvedilol 6.25 mg tablet 6.25 mg PO BIDWMEAL 04/04/25 04/04/25 History Allergies Allergy/AdvReac Type Severity Reaction Status Date / Time gluten AdvReac Diarrhea Verified 04/04/25 01:01 Vital Signs Vital Signs - 24 hr 04/03/25 19:53 04/03/25 23:39 04/04/25 00:25 Temperature 37.3 C Pulse Rate 110 H 91 110 H Respiratory Rate 18 15 20 Blood Pressure 145/83 H 129/81 118/71 Pulse Oximetry 98 100 100 Oxygen Delivery Room Air 04/04/25 02:00 04/04/25 04:00 04/04/25 04:00 Temperature 36.4 C Pulse Rate 92 67 85 Respiratory Rate 17 Blood Pressure 129/79 Pulse Oximetry 100 Oxygen Delivery 04/04/25 06:00 04/04/25 08:00 04/04/25 08:08 Temperature 36.8 C Pulse Rate 104 H 101 H 103 H Respiratory Rate 18 Blood Pressure 131/73 Pulse Oximetry 98 Oxygen Delivery 04/04/25 09:38 04/04/25 10:00 04/04/25 11:33 Temperature 36.9 C Pulse Rate 109 H 94 106 H Respiratory Rate 16 Blood Pressure 126/75 Pulse Oximetry 100 Oxygen Delivery 04/04/25 12:00 Temperature Pulse Rate 97 Respiratory Rate Blood Pressure Pulse Oximetry Oxygen Delivery Exam 2 Narrative: pt seen at bedside, ambulating unassisted, pleasantly conversational. RIGHT HAND Gen: 5 x 5 cm well demarcated edema and erythema overlying 4th and 5th proximal metacarpals without palpable fluctuance/abscess, small healed central punctum, no streaking. 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 limited by dorsal pain, opposition to small finger with some effort Vascular: Warm and well perfused Sensation: Intact to light touch Results Labs 04/03/25 21:52 04/04/25 02:45 Labs: Short CBC 04/03/25 Range/Units 21:52 WBC 7.8 (4.5-10.0) K/mm3 Hgb 13.1 L (14.0-18.0) g/dL Hct 40.6 L (42.0-52.0) % Plt Count 311 D (150-375) k/mm3 BMP 04/03/25 04/04/25 21:20 02:45 Sodium 139 Potassium 3.8 Chloride 100 Carbon Dioxide 30 BUN 8 L Creatinine 0.66 L 0.59 L Glucose 91 Calcium 9.3 Cardiac Enzymes 04/03/25 Range/Units 21:20 Total Creatine Kinase 93 (55-170) U/L Liver Function 04/03/25 Range/Units 21:20 Total Bilirubin 0.5 (0.2-1.3) mg/dL AST 28 (17-59) U/L ALT 28 (6-50) U/L Alkaline Phosphatase 95 (38-126) U/L Albumin 4.6 (3.5-5.1) g/dL
[2025-04-04] MEDS: CEFEPIME 2 GM/NS 50 ML 2 GM/50 ML BAG IVPB (17:54)
[2025-04-04] MEDS: NICOTINE (*PBKC) 4 MG GUM PO (23:59)
[2025-04-05] MEDS: metroNIDAZOLE 500 MG TABLET PO ×3 (05:40→21:14)
[2025-04-05] MEDS: BUPRENORPHINE HCL (*CRX) 2 MG SUBLINGUAL TABLET 4 MG SUBLINGUAL ×3 (05:40→21:14)
[2025-04-05] MEDS: NICOTINE (*PBKC) 4 MG GUM PO ×4 (05:41→20:42)
[2025-04-05 08:00] VITALS: BP 138/100; PULSE 86; RESP 18; TEMP 37.1; O2SAT 99
[2025-04-05] MEDS: ONDANSETRON INJ 4 MG/2 ML VIAL IV PUSH ×2 (08:15→17:14)
[2025-04-05] MEDS: LORazepam INJ (*CRX) 2 MG/ML VIAL IV PUSH ×2 (08:15→20:44)
[2025-04-05] MEDS: CEFEPIME 2 GM/NS 50 ML 2 GM/50 ML BAG IVPB ×2 (08:15→20:40)
[2025-04-05] MEDS: ENOXAPARIN 40 MG/0.4 ML SYRINGE SUB-Q (08:15)
[2025-04-05] MEDS: carvediloL 6.25 MG TABLET PO ×2 (09:03→20:43)
[2025-04-05] MEDS: cloNIDine HCL 0.1 MG TABLET PO ×2 (09:03→17:10)
[2025-04-05] MEDS: ESCITALOPRAM OXALATE 10 MG TABLET 20 MG PO (09:03)
[2025-04-05 09:16] LABS: Basophils Absolute Auto 0.1 K/mm3 (0.0-0.1); Basophils Percent Auto 0.6 % (0.2-1.2); Eosinophils Percent Auto 0.3 % (0-4.4); Hematocrit 39.2 % (42.0-52.0); Hemoglobin 13.2 g/dL (14.0-18.0); Immature Granulocyte Absolute 0.03 K/mm3 (0.00-0.031); Immature Granulocyte Percent A 0.3 % (0-0.5); Lymphocytes Absolute Auto 1.24 K/mm3 (0.9-3.2); Lymphocytes Percent Auto 12.9 % (18.3-44.2); Mean Corpuscular HGB Conc 33.7 g/dl (32-36); Mean Corpuscular Hemoglobin 30.4 pg (26-34); Mean Corpuscular Volume 90.3 fl (80-100); Mean Platelet Volume 9.5 fl (7.4-10.4); Monocytes Absolute Auto 0.7 K/mm3 (0.1-0.6); Monocytes Percent Auto 7.5 % (2.6-8.5); Neutrophils Absolute Auto 7.5 K/mm3 (1.3-6.7); Neutrophils Percent Auto 78.4 % (45.5-73.1); Platelet Count Result 384 k/mm3 (150-375); Red Blood Count 4.34 M/mm3 (4.6-6.20); Red Cell Distribution Width 12.7 % (11.5-14.5); White Blood Count 9.6 K/mm3 (4.5-10.0)
[2025-04-05 09:27] LABS: Anion Gap 9 mmol/L (4-12); Blood Urea Nitrogen 7 mg/dL (9-20); Calcium 8.8 mg/dL (8.4-10.2); Carbon Dioxide 26 mmol/L (22-30); Chloride 106 mmol/L (98-107); Estimated CRCL calculation 157 ml/min; Estimated Glomerular Filt Rate > 60; Glucose 119 mg/dL (65-110); Potassium 3.9 mmol/L (3.4-5.0); Sodium 141 mmol/L (137-145)
[2025-04-05 10:08] LABS: Vancomycin Trough 6.2 ug/mL (10.0-20.0)
[2025-04-05 10:24] VITALS: O2SAT 96
[2025-04-05] MEDS: VANCOMYCIN 1,750 MG/NS 500 ML 1,750 MG/500 ML BAG 250 MG IVPB ×2 (11:13→21:15)
--- NOTE | 2025-04-05 11:37 | P.PNIM_ITS ---
Progress Note: A&P Assessment and Plan (1) Marijuana use: Code(s): F12.90 - Cannabis use, unspecified, uncomplicated Status: Acute (2) Anxiety: Code(s): F41.9 - Anxiety disorder, unspecified Status: Acute (3) Amphetamine abuse: Code(s): F15.10 - Other stimulant abuse, uncomplicated Status: Acute (4) Mild fentanyl abuse: Code(s): F11.10 - Opioid abuse, uncomplicated Status: Acute (5) Opiate withdrawal: Code(s): F11.93 - Opioid use, unspecified with withdrawal Status: Acute (6) Extensor tenosynovitis of right wrist: Code(s): M65.931 - Unspecified synovitis and tenosynovitis, right forearm Status: Acute Plan Drug abuse IV fentanyl abuser Continue Buprenorphine 4 mg SL TID home dose Lorazepam 2 mg q.4 hours p.r.n. for anxiety Consider Bentyl 20 mg p.o. q.6 hours p.r.n. for abdominal discomfort Methocarbamol 750 mg p.o. q.6 hours p.r.n. for muscle spasm Catapres 0.1 mg p.o. q.2 hours p.r.n. for heart/cold sweats or anxiety. Hold if BP less than 90/60 Monitor development of withdrawal symptoms Alcohol level negative UDS results positive cannabinoids Cellulitis Hand CT:Extensor tenosynovitis of the hand and wrist. Infectious etiology should be considered in the differential. Adjacent subcutaneous stranding may represent edema or cellulitis. Apparent discontinuity of the fourth extensor tendon, correlate for active range of motion or strength deficit in the fourth finger. MR of the hand would be helpful for better characterization of this potential tendon injury. No acute osseous finding in the right hand or wrist Continue cefepime, Flagyl and vancomycin Monitor vitals Blood culture pending Plastic surgeon on board DVT prophylaxis Lovenox 40 mg subQ daily Subjective Date/time seen: 04/05/25 11:37 Interval history: per HPI: Patient is a 29-year-old male with no significant past medical history other than being an IV drug abuser who presented to the ED due to possible cellulitis of his right hand. 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 Patient denies smoking but uses vaping and denies alcoholism. Patient reports that he had his last IV fentanyl use yesterday night. He could not confirm the continuity but noted that it was the size of a elena. Pertinent ED labs: WBC 7.8, hemoglobin 13.1, hematocrit 40.6, platelets 311, sodium 139, potassium 3.8, carbon dioxide 30, anion gap 9, creatinine 0.6, CRP 4.8 UDS positive for cannabinoids Ethanol level less than [address]: Extensor tenosynovitis of the hand and wrist. Infectious etiology should be considered in the differential. Adjacent subcutaneous stranding may represent edema or cellulitis. Apparent discontinuity of the fourth extensor tendon correlates with active range of motion or strength deficit in the fourth finger. MR of the hand would help better characterize this potential tendon injury. No acute osseous finding in the right hand or wrist. 04/04/25 Patient was seen and examined at bedside. Feeling better. Still cannot extend his right side finger Denies any chest pain, shortness of breath, abdominal pain, nausea vomiting. Hand surgeon has been consulted. Continue with IV antibiotics. 04/05/25 patient was seen and examined at bedside. he is feeling better. his hand improving. plastic surgeon on board, continue with IV ABx. will order OT. Review of Systems Review of Systems: A 10 system review of systems was completed on the patient and is negative except for what is stated in the HPI. Nursing and ancillary documentation was reviewed. Exam Narrative: GENERAL: Well-appearing, well-nourished, and in no acute distress. HEAD: Normocephalic, atraumatic. EYES: PERRLA and EOMI. ENT: Nares clear, no rhinorrhea or epistaxis. Mucous membranes moist. NECK: Supple. CHEST: Clear to auscultation. No respiratory distress. HEART: Regular rate and rhythm. No murmur heard. Normal peripheral pulses. ABDOMEN: Soft, nontender, nondistended, normal active bowel sounds. EXTREMITIES: Normal range of motion. No edema. SKIN: Warm, dry, no rash. There is redness present to the dorsum of the right hand the early there is swelling present is tender to palpation and there is no crepitance no fluctuance NEURO: No focal deficits. Alert and oriented x3. PSYCH: Normal mood and affect. Objective Data Vital Signs Vital Signs: Vital Signs - 24 hr 04/04/25 12:00 04/04/25 16:50 04/04/25 20:28 Temperature 98.4 F 98.6 F Pulse Rate 97 101 H 123 H Respiratory Rate 20 20 Blood Pressure 134/69 138/68 Pulse Oximetry 100 100 Oxygen Delivery 04/04/25 21:01 04/04/25 23:44 04/05/25 08:00 Temperature 98.6 F 98.7 F Pulse Rate 98 86 Respiratory Rate 20 18 Blood Pressure 138/100 H Pulse Oximetry 100 99 Oxygen Delivery 04/05/25 08:00 04/05/25 10:24 Temperature Pulse Rate Respiratory Rate Blood Pressure Pulse Oximetry 96 Oxygen Delivery Room Air Room Air Intake/Output Intake/Output: Intake & Output 04/02/25 04/03/25 04/04/25 04/05/25 23:59 23:59 23:59 23:59 Intake Total 1050 3040 350 Balance 1050 3040 350 Meds/Results Medications: Active Medications Generic Name Dose Route Start Last Admin Trade Name Freq PRN Reason Stop Dose Admin Buprenorphine HCl 4 mg 04/04/25 22:00 04/05/25 05:40 Buprenorphine Hcl (*Crx) 2 Mg Sublingual Tablet SUBLINGUAL 4 mg Q8HR CANDY Administration Carvedilol 6.25 mg 04/04/25 09:00 04/05/25 09:03 Carvedilol 6.25 Mg Tablet PO 6.25 mg Q12HR CANDY Administration Clonidine HCl 0.1 mg 04/04/25 09:00 04/05/25 09:03 Clonidine Hcl 0.1 Mg Tablet PO 0.1 mg BID CANDY Administration Enoxaparin Sodium 40 mg 04/04/25 09:00 04/05/25 08:15 Enoxaparin 40 Mg/0.4 Ml Syringe SUB-Q 40 mg DAILY CANDY Administration Escitalopram Oxalate 20 mg 04/04/25 09:00 04/05/25 09:03 Escitalopram Oxalate 10 Mg Tablet PO 20 mg DAILY CANDY Administration Cefepime HCl 2 gm in 50 mls @ 100 mls/hr 04/04/25 19:00 04/05/25 08:15 Maxipime 2 Gm/Ns 50 Ml IVPB 100 mls/hr Q12HR CANDY Administration Vancomycin HCl 1,750 mg in 500 mls @ 250 mls/hr 04/05/25 12:00 04/05/25 11:13 Vancomycin 1,750 Mg/Ns 500 Ml IVPB 250 mls/hr Q8H CANDY Administration Lorazepam 2 mg 04/04/25 02:29 04/05/25 08:15 Lorazepam Inj (*Crx) 2 Mg/Ml Vial IV PUSH 2 mg Q4H PRN Administration anxiety/withdrawal Metronidazole 500 mg 04/04/25 14:00 04/05/25 05:40 Metronidazole 500 Mg Tablet PO 500 mg Q8HR CANDY Administration Nicotine Polacrilex 4 mg 04/04/25 23:43 04/05/25 11:22 Nicotine (*Pbkc) 4 Mg Gum PO 4 mg PRN PRN Administration Nicotine Cravings Ondansetron HCl 4 mg 04/05/25 07:56 04/05/25 08:15 Ondansetron Inj 4 Mg/2 Ml Vial IV PUSH 4 mg Q6H PRN Administration Nausea And Vomiting Radiology Results: ITS Impressions Hand X-Ray 04/03/25 20:12 IMPRESSION: No acute osseous abnormality right hand. Hand CT 04/03/25 22:18 IMPRESSION: Extensor tenosynovitis of the hand and wrist. Infectious etiology should be considered in the differential. Adjacent subcutaneous stranding may represent edema or cellulitis. Apparent discontinuity of the fourth extensor tendon, correlate for active range of motion or strength deficit in the fourth finger. MR of the hand would be helpful for better characterization of this potential tendon injury. No acute osseous finding in the right hand or wrist. Hand MRI 04/04/25 16:30 IMPRESSION: 1. Prominent tenosynovitis in the fourth dorsal compartment surrounding the extensor digitorum and extensor indicis tendons which appear to remain intact. The tenosynovitis could be either septic or aseptic. Could consider ultrasound- guided diagnostic aspiration. Labs Labs: Laboratory Results - last 24 hr 04/05/25 09:07 WBC 9.6 RBC 4.34 L Hgb 13.2 L Hct 39.2 L MCV 90.3 MCH 30.4 MCHC 33.7 RDW 12.7 Plt Count 384 H MPV 9.5 Immature Gran % (Auto) 0.3 Neut % (Auto) 78.4 H Lymph % (Auto) 12.9 L [place] % (Auto) 7.5 Eos % (Auto) 0.3 Baso % (Auto) 0.6 Lymph # (Auto) 1.24 [place] # (Auto) 0.7 H Eos # (Auto) 0.0 Baso # (Auto) 0.1 Abs Immat Gran (auto) 0.03 Absolute Neuts (auto) 7.5 H Absolute Nucleated RBC 0.000 Nucleated RBC % 0.0 Sodium 141 Potassium 3.9 Chloride 106 Carbon Dioxide 26 Anion Gap 9 BUN 7 L Creatinine 0.54 L Estim Creat Clear Calc 157 Estimated GFR > 60 Glucose 119 H Calcium 8.8 Vancomycin Trough 6.2 L
--- NOTE | 2025-04-05 13:47 | WPDPN ---
Progress Note: A&P Assessment and Plan (1) Extensor tenosynovitis of right wrist: Code(s): M65.931 - Unspecified synovitis and tenosynovitis, right forearm Status: Acute Assessment and Plan: 29yo male with improivng right dorsal hand cellulitis and extensor synovitis undergoing withdrawal. mri images reviewed and agree with report discussed impressio and Dx and no clear indication for surgical interventio at this time as he seems to be respoinding to abx therapy and conservative mgmt Plan: 1) cont abx per primary - transition to po when cleared for discharge and substance abuse treatment plan is finalized 2) nsaids 3) elevation 4) warm moist compresses BID 5) care per primary 6) f/u after d/c and reconsult plastics as needed 35 min spent reviwing imaging, discussing Dx and treatment plan and documenting (2) Cellulitis: Qualifiers: Site of cellulitis: extremity Site of cellulitis of extremity: upper extremity Laterality: right Qualified Code(s): L03.113 - Cellulitis of right upper limb Code(s): L03.90 - Cellulitis, unspecified Status: Acute Subjective Date/time seen: pt. seen and examined at bedside. patient notes some interval improvement in motion and pain on right hand but notes main issue is withdrawal symptoms. notes improved right hand ROM. no other concerns Exam Narrative: Gen: 3-4cm area of right dorsal hand edema with central hyperemic/erythematous area but no clear fluctuance ROM: full ROM. Vascular: Warm and well perfused Sensation: Intact to light touch Objective Data Vital Signs Vital Signs: Vital Signs - 24 hr 04/04/25 16:50 04/04/25 20:28 04/04/25 21:01 Temperature 36.9 C 37.0 C Pulse Rate 101 H 123 H 98 Respiratory Rate 20 20 Blood Pressure 134/69 138/68 Pulse Oximetry 100 100 Oxygen Delivery 04/04/25 23:44 04/05/25 08:00 04/05/25 08:00 Temperature 37.0 C 37.1 C Pulse Rate 86 Respiratory Rate 20 18 Blood Pressure 138/100 H Pulse Oximetry 100 99 Oxygen Delivery Room Air 04/05/25 10:24 Temperature Pulse Rate Respiratory Rate Blood Pressure Pulse Oximetry 96 Oxygen Delivery Room Air Intake/Output Intake/Output: Intake & Output 04/02/25 04/03/25 04/04/2504/05/25 23:59 23:59 23:59 23:59 Intake Total 1050 3040 350 Balance 1050 3040 350 Meds/Results Medications: Active Medications Generic Name Dose Route Start Last Admin Trade Name Freq PRN Reason Stop Dose Admin Buprenorphine HCl 4 mg 04/04/25 22:00 04/05/25 05:40 Buprenorphine Hcl (*Crx) 2 Mg Sublingual Tablet SUBLINGUAL 4 mg Q8HR CANDY Administration Carvedilol 6.25 mg 04/04/25 09:00 04/05/25 09:03 Carvedilol 6.25 Mg Tablet PO 6.25 mg Q12HR CANDY Administration Clonidine HCl 0.1 mg 04/04/25 09:00 04/05/25 09:03 Clonidine Hcl 0.1 Mg Tablet PO 0.1 mg BID CANDY Administration Enoxaparin Sodium 40 mg 04/04/25 09:00 04/05/25 08:15 Enoxaparin 40 Mg/0.4 Ml Syringe SUB-Q 40 mg DAILY CANDY Administration Escitalopram Oxalate 20 mg 04/04/25 09:00 04/05/25 09:03 Escitalopram Oxalate 10 Mg Tablet PO 20 mg DAILY CANDY Administration Cefepime HCl 2 gm in 50 mls @ 100 mls/hr 04/04/25 19:00 04/05/25 08:15 Maxipime 2 Gm/Ns 50 Ml IVPB 100 mls/hr Q12HR CANDY Administration Vancomycin HCl 1,750 mg in 500 mls @ 250 mls/hr 04/05/25 12:00 04/05/25 11:13 Vancomycin 1,750 Mg/Ns 500 Ml IVPB 250 mls/hr Q8H CANDY Administration Lorazepam 2 mg 04/04/25 02:29 04/05/25 08:15 Lorazepam Inj (*Crx) 2 Mg/Ml Vial IV PUSH 2 mg Q4H PRN Administration anxiety/withdrawal Metronidazole 500 mg 04/04/25 14:00 04/05/25 05:40 Metronidazole 500 Mg Tablet PO 500 mg Q8HR CANDY Administration Nicotine Polacrilex 4 mg 04/04/25 23:43 04/05/25 11:22 Nicotine (*Pbkc) 4 Mg Gum PO 4 mg PRN PRN Administration Nicotine Cravings Ondansetron HCl 4 mg 04/05/25 07:56 04/05/25 08:15 Ondansetron Inj 4 Mg/2 Ml Vial IV PUSH 4 mg Q6H PRN Administration Nausea And Vomiting Radiology Results: ITS Impressions Hand X-Ray 04/03/25 20:12 IMPRESSION: No acute osseous abnormality right hand. Hand CT 04/03/25 22:18 IMPRESSION: Extensor tenosynovitis of the hand and wrist. Infectious etiology should be considered in the differential. Adjacent subcutaneous stranding may represent edema or cellulitis. Apparent discontinuity of the fourth extensor tendon, correlate for active range of motion or strength deficit in the fourth finger. MR of the hand would be helpful for better characterization of this potential tendon injury. No acute osseous finding in the right hand or wrist. Hand MRI 04/04/25 16:30 IMPRESSION: 1. Prominent tenosynovitis in the fourth dorsal compartment surrounding the extensor digitorum and extensor indicis tendons which appear to remain intact. The tenosynovitis could be either septic or aseptic. Could consider ultrasound-guided diagnostic aspiration. Labs Labs: Laboratory Results - last 24 hr 04/05/25 09:07 WBC 9.6 RBC 4.34 L Hgb 13.2 L Hct 39.2 L MCV 90.3 MCH 30.4 MCHC 33.7 RDW 12.7 Plt Count 384 H MPV 9.5 Immature Gran % (Auto) 0.3 Neut % (Auto) 78.4 H Lymph % (Auto) 12.9 L [place] % (Auto) 7.5 Eos % (Auto) 0.3 Baso % (Auto) 0.6 Lymph # (Auto) 1.24 [place] # (Auto) 0.7 H Eos # (Auto) 0.0 Baso # (Auto) 0.1 Abs Immat Gran (auto) 0.03 Absolute Neuts (auto) 7.5 H Absolute Nucleated RBC 0.000 Nucleated RBC % 0.0 Sodium 141 Potassium 3.9 Chloride 106 Carbon Dioxide 26 Anion Gap 9 BUN 7 L Creatinine 0.54 L Estim Creat Clear Calc 157 Estimated GFR > 60 Glucose 119 H Calcium 8.8 Vancomycin Trough 6.2 L
[2025-04-05 15:49] VITALS: BP 147/86; PULSE 89; RESP 18; TEMP 36.9; O2SAT 99
[2025-04-05 19:48] VITALS: PULSE 98; O2SAT 99
[2025-04-05 20:43] VITALS: PULSE 94
[2025-04-05 23:10] VITALS: BP 121/85; PULSE 59; RESP 18; TEMP 37.1; O2SAT 100
[2025-04-06 04:29] LABS: Basophils Absolute Auto 0.1 K/mm3 (0.0-0.1); Basophils Percent Auto 1.1 % (0.2-1.2); Eosinophils Absolute Auto 0.1 K/mm3 (0-0.3); Hematocrit 40.8 % (42.0-52.0); Hemoglobin 13.6 g/dL (14.0-18.0); Immature Granulocyte Absolute 0.04 K/mm3 (0.00-0.031); Immature Granulocyte Percent A 0.6 % (0-0.5); Lymphocytes Absolute Auto 2.03 K/mm3 (0.9-3.2); Lymphocytes Percent Auto 28.6 % (18.3-44.2); Mean Corpuscular HGB Conc 33.3 g/dl (32-36); Mean Corpuscular Hemoglobin 30.4 pg (26-34); Mean Corpuscular Volume 91.1 fl (80-100); Mean Platelet Volume 9.5 fl (7.4-10.4); Monocytes Absolute Auto 0.7 K/mm3 (0.1-0.6); Monocytes Percent Auto 9.9 % (2.6-8.5); Neutrophils Absolute Auto 4.2 K/mm3 (1.3-6.7); Neutrophils Percent Auto 58.8 % (45.5-73.1); Platelet Count Result 398 k/mm3 (150-375); Red Blood Count 4.48 M/mm3 (4.6-6.20); Red Cell Distribution Width 12.9 % (11.5-14.5); White Blood Count 7.1 K/mm3 (4.5-10.0)
[2025-04-06] MEDS: VANCOMYCIN 1,750 MG/NS 500 ML 1,750 MG/500 ML BAG 250 MG IVPB (04:38)
[2025-04-06 04:43] LABS: Anion Gap 10 mmol/L (4-12); Blood Urea Nitrogen 9 mg/dL (9-20); Calcium 8.9 mg/dL (8.4-10.2); Carbon Dioxide 26 mmol/L (22-30); Chloride 104 mmol/L (98-107); Estimated CRCL calculation 138 ml/min; Estimated Glomerular Filt Rate > 60; Glucose 96 mg/dL (65-110); Potassium 3.9 mmol/L (3.4-5.0); Sodium 140 mmol/L (137-145)
[2025-04-06] MEDS: metroNIDAZOLE 500 MG TABLET PO (05:38)
[2025-04-06] MEDS: NICOTINE (*PBKC) 4 MG GUM PO ×2 (05:39→09:13)
[2025-04-06] MEDS: BUPRENORPHINE HCL (*CRX) 2 MG SUBLINGUAL TABLET 4 MG SUBLINGUAL (05:39)
[2025-04-06] MEDS: LORazepam INJ (*CRX) 2 MG/ML VIAL IV PUSH (05:39)
--- NOTE | 2025-04-06 07:15 | P.PN_ITS ---
Progress Note: A&P Assessment and Plan (1) Cellulitis: Qualifiers: Site of cellulitis: extremity Site of cellulitis of extremity: upper extremity Laterality: right Qualified Code(s): L03.113 - Cellulitis of right upper limb Code(s): L03.90 - Cellulitis, unspecified Status: Acute Assessment and Plan: 29yo male with improving right hand cellulitis and extensor tenosynovitis reviwed impression and Dx and hopeful expectation for continued recovery with conservative mgmt Plan: 1) ok to d/c on po abx from plastics perspective 2) warm moist compresses BID dorsum of hand 3) light jose wrap compression and elevation 4) f/u plastics - discussed possible OT if stiffness not improving - reconsult as needed 35 minutes spent reviewing lab work, discussing with patient and documenting Subjective Date/time seen: 04/06/25 07:15 Interval history: pt seen and examined as pt sitting on couch in his room. reports feeling overall much better this AM and still only with some stiffness and decreased extension in right fingers. no new concerns Exam Narrative: Gen: right dorsal hand edema slighlty improved with less hyperemia/erythema. no flcuutance and mildly tender ROM: full ROM except minimal extensor stiffness right 2-5 digits <5 degree lag Vascular: Warm and well perfused Sensation: Intact to light touch Objective Data Vital Signs Vital Signs: Vital Signs - 24 hr 04/05/25 08:00 04/05/25 08:00 04/05/25 10:24 Temperature 37.1 C Pulse Rate 86 Respiratory Rate 18 Blood Pressure 138/100 H Pulse Oximetry 99 96 Oxygen Delivery Room Air Room Air Fraction of Inspired Oxygen 04/05/25 15:49 04/05/25 19:48 04/05/25 20:00 Temperature 36.9 C Pulse Rate 89 98 Respiratory Rate 18 Blood Pressure 147/86 H Pulse Oximetry 99 99 Oxygen Delivery Room Air Room Air Fraction of Inspired Oxygen 21 04/05/25 20:43 04/05/25 23:10 Temperature 37.1 C Pulse Rate 94 59 L Respiratory Rate 18 Blood Pressure 121/85 Pulse Oximetry 100 Oxygen Delivery Fraction of Inspired Oxygen Intake/Output Intake/Output: Intake & Output 04/03/25 04/04/25 04/05/25 04/06/25 23:59 23:59 23:59 23:59 Intake Total 1050 3040 1750 1050 Balance 1050 3040 1750 1050 Meds/Results Medications: Active Medications Generic Name Dose Route Start Last Admin Trade Name Freq PRN Reason Stop Dose Admin Buprenorphine HCl 4 mg 04/04/25 22:00 04/06/25 05:39 Buprenorphine Hcl (*Crx) 2 Mg Sublingual Tablet SUBLINGUAL 4 mg Q8HR CANDY Administration Carvedilol 6.25 mg 04/04/25 09:00 04/05/25 20:43 Carvedilol 6.25 Mg Tablet PO 6.25 mg Q12HR CANDY Administration Clonidine HCl 0.1 mg 04/04/25 09:00 04/05/25 17:10 Clonidine Hcl 0.1 Mg Tablet PO 0.1 mg BID CANDY Administration Enoxaparin Sodium 40 mg 04/04/25 09:00 04/05/25 08:15 Enoxaparin 40 Mg/0.4 Ml Syringe SUB-Q 40 mg DAILY CANDY Administration Escitalopram Oxalate 20 mg 04/04/25 09:00 04/05/25 09:03 Escitalopram Oxalate 10 Mg Tablet PO 20 mg DAILY CANDY Administration Cefepime HCl 2 gm in 50 mls @ 100 mls/hr 04/04/25 19:00 04/05/25 21:10 Maxipime 2 Gm/Ns 50 Ml IVPB Infused Q12HR CANDY Infusion Vancomycin HCl 1,750 mg in 500 mls @ 250 mls/hr 04/05/25 12:00 04/06/25 06:38 Vancomycin 1,750 Mg/Ns 500 Ml IVPB Infused Q8H CANDY Infusion Lorazepam 2 mg 04/04/25 02:29 04/06/25 05:39 Lorazepam Inj (*Crx) 2 Mg/Ml Vial IV PUSH 2 mg Q4H PRN Administration anxiety/withdrawal Metronidazole 500 mg 04/04/25 14:00 04/06/25 05:38 Metronidazole 500 Mg Tablet PO 500 mg Q8HR CANDY Administration Nicotine Polacrilex 4 mg 04/04/25 23:43 04/06/25 05:39 Nicotine (*Pbkc) 4 Mg Gum PO 4 mg PRN PRN Administration Nicotine Cravings Ondansetron HCl 4 mg 04/05/25 07:56 04/05/25 17:14 Ondansetron Inj 4 Mg/2 Ml Vial IV PUSH 4 mg Q6H PRN Administration Nausea And Vomiting Radiology Results: ITS Impressions Hand X-Ray 04/03/25 20:12 IMPRESSION: No acute osseous abnormality right hand. Hand CT 04/03/25 22:18 IMPRESSION: Extensor tenosynovitis of the hand and wrist. Infectious etiology should be considered in the differential. Adjacent subcutaneous stranding may represent edema or cellulitis. Apparent discontinuity of the fourth extensor tendon, correlate for active range of motion or strength deficit in the fourth finger. MR of the hand would be helpful for better characterization of this potential tendon injury. No acute osseous finding in the right hand or wrist. Hand MRI 04/04/25 16:30 IMPRESSION: 1. Prominent tenosynovitis in the fourth dorsal compartment surrounding the extensor digitorum and extensor indicis tendons which appear to remain intact. The tenosynovitis could be either septic or aseptic. Could consider ultrasound- guided diagnostic aspiration. Labs Labs: Laboratory Results - last 24 hr 04/05/25 04/06/25 09:07 04:15 WBC 9.6 7.1 RBC 4.34 L 4.48 L Hgb 13.2 L 13.6 L Hct 39.2 L 40.8 L MCV 90.3 91.1 MCH 30.4 30.4 MCHC 33.7 33.3 RDW 12.7 12.9 Plt Count 384 H 398 H MPV 9.5 9.5 Immature Gran % (Auto) 0.3 0.6 H Neut % (Auto) 78.4 H 58.8 Lymph % (Auto) 12.9 L 28.6 [place] % (Auto) 7.5 9.9 H Eos % (Auto) 0.3 1.0 Baso % (Auto) 0.6 1.1 Lymph # (Auto) 1.24 2.03 [place] # (Auto) 0.7 H 0.7 H Eos # (Auto) 0.0 0.1 Baso # (Auto) 0.1 0.1 Abs Immat Gran (auto) 0.03 0.04 H Absolute Neuts (auto) 7.5 H 4.2 Absolute Nucleated RBC 0.000 0.000 Nucleated RBC % 0.0 0.0 Sodium 141 140 Potassium 3.9 3.9 Chloride 106 104 Carbon Dioxide 26 26 Anion Gap 9 10 BUN 7 L 9 Creatinine 0.54 L 0.62 L Estim Creat Clear Calc 157 138 Estimated GFR > 60 > 60 Glucose 119 H 96 Calcium 8.8 8.9 Vancomycin Trough 6.2 L
[2025-04-06 08:02] VITALS: BP 126/83; PULSE 100; RESP 18; TEMP 36.4; O2SAT 99
[2025-04-06] MEDS: ESCITALOPRAM OXALATE 10 MG TABLET 20 MG PO (09:10)
[2025-04-06] MEDS: carvediloL 6.25 MG TABLET PO (09:10)
[2025-04-06] MEDS: cloNIDine HCL 0.1 MG TABLET PO (09:10)
[2025-04-06] MEDS: CEFEPIME 2 GM/NS 50 ML 2 GM/50 ML BAG IVPB (09:10)
--- NOTE | 2025-04-06 10:53 | P.DS_ITS ---
DS: Admitting Diagnosis Discharge Date 04/06/25 Admitting Diagnosis R hand cellulitis DS: Discharge Diagnosis Discharge Diagnosis (1) Marijuana use: Code(s): F12.90 - Cannabis use, unspecified, uncomplicated Status: Acute (2) Anxiety: Code(s): F41.9 - Anxiety disorder, unspecified Status: Acute (3) Amphetamine abuse: Code(s): F15.10 - Other stimulant abuse, uncomplicated Status: Acute (4) Mild fentanyl abuse: Code(s): F11.10 - Opioid abuse, uncomplicated Status: Acute (5) Opiate withdrawal: Code(s): F11.93 - Opioid use, unspecified with withdrawal Status: Acute (6) Extensor tenosynovitis of right wrist: Code(s): M65.931 - Unspecified synovitis and tenosynovitis, right forearm Status: Acute Plan Drug abuse IV fentanyl abuser Continue Buprenorphine 4 mg SL TID home dose Lorazepam 2 mg q.4 hours p.r.n. for anxiety Consider Bentyl 20 mg p.o. q.6 hours p.r.n. for abdominal discomfort Methocarbamol 750 mg p.o. q.6 hours p.r.n. for muscle spasm Catapres 0.1 mg p.o. q.2 hours p.r.n. for heart/cold sweats or anxiety. Hold if BP less than 90/60 Monitor development of withdrawal symptoms Alcohol level negative UDS results positive cannabinoids Cellulitis Hand CT:Extensor tenosynovitis of the hand and wrist. Infectious etiology should be considered in the differential. Adjacent subcutaneous stranding may represent edema or cellulitis. Apparent discontinuity of the fourth extensor tendon, correlate for active range of motion or strength deficit in the fourth finger. MR of the hand would be helpful for better characterization of this potential tendon injury. No acute osseous finding in the right hand or wrist received cefepime, Flagyl and vancomycin. will dc on ciprofloxacin, doxy and flagyl Monitor vitals Blood culture positive patrice man Plastic surgeon on board DS: Summary Hospital Course Hospital Course: per HPI: Patient is a 29-year-old male with no significant past medical history other than being an IV drug abuser who presented to the ED due to possible cellulitis of his right hand. 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 Patient denies smoking but uses vaping and denies alcoholism. Patient reports that he had his last IV fentanyl use yesterday night. He could not confirm the continuity but noted that it was the size of a elena. Pertinent ED labs: WBC 7.8, hemoglobin 13.1, hematocrit 40.6, platelets 311, sodium 139, potassium 3.8, carbon dioxide 30, anion gap 9, creatinine 0.6, CRP 4.8 UDS positive for cannabinoids Ethanol level less than [address]: Extensor tenosynovitis of the hand and wrist. Infectious etiology should be considered in the differential. Adjacent subcutaneous stranding may represent edema or cellulitis. Apparent discontinuity of the fourth extensor tendon correlates with active range of motion or strength deficit in the fourth finger. MR of the hand would help better characterize this potential tendon injury. No acute osseous finding in the right hand or wrist. 04/04/25 Hand surgeon has been consulted. Continue with IV antibiotics. 04/06/25 Patient was seen and examined at bedside. Feeling better. . R hand ROM improving. Denies any chest pain, shortness of breath, abdominal pain, nausea vomiting. Surgery team on [place]. recommended follow up as outpatient. will discharge patient home. continue Cipro, flagyl and doxy. Time Spent with Patient Time attestation: Total time spent providing and/or coordinating discharge services: Exam Narrative: GENERAL: Well-appearing, well-nourished, and in no acute distress. HEAD: Normocephalic, atraumatic. EYES: PERRLA and EOMI. ENT: Nares clear, no rhinorrhea or epistaxis. Mucous membranes moist. NECK: Supple. CHEST: Clear to auscultation. No respiratory distress. HEART: Regular rate and rhythm. No murmur heard. Normal peripheral pulses. ABDOMEN: Soft, nontender, nondistended, normal active bowel sounds. EXTREMITIES: Normal range of motion. No edema. SKIN: Warm, dry, no rash. There is redness present to the dorsum of the right hand the early there is swelling present is tender to palpation and there is no crepitance no fluctuance NEURO: No focal deficits. Alert and oriented x3. PSYCH: Normal mood and affect. DS: Data Data Completed and Pending Labs on day of discharge: Labs from last 24 hours 04/06/25 04:15 WBC 7.1 RBC 4.48 L Hgb 13.6 L Hct 40.8 L MCV 91.1 MCH 30.4 MCHC 33.3 RDW 12.9 Plt Count 398 H MPV 9.5 Immature Gran % (Auto) 0.6 H Neut % (Auto) 58.8 Lymph % (Auto) 28.6 [place] % (Auto) 9.9 H Eos % (Auto) 1.0 Baso % (Auto) 1.1 Lymph # (Auto) 2.03 [place] # (Auto) 0.7 H Eos # (Auto) 0.1 Baso # (Auto) 0.1 Abs Immat Gran (auto) 0.04 H Absolute Neuts (auto) 4.2 Absolute Nucleated RBC 0.000 Nucleated RBC % 0.0 Sodium 140 Potassium 3.9 Chloride 104 Carbon Dioxide 26 Anion Gap 10 BUN 9 Creatinine 0.62 L Estim Creat Clear Calc 138 Estimated GFR > 60 Glucose 96 Calcium 8.9 Preliminary micro results at discharge 04/03/25 21:20 Blood Culture - Preliminary Blood Staphylococcus hominis 04/03/25 21:30 Blood Culture - Preliminary Blood Discharge Plan Discharge Attending physician on discharge: Clover Maldonado Consulting providers: Jonathan Herbert Discharging Clinician: Clovre Maldonado Patient Disposition: Home Activity: as tolerated Diet: as tolerated Patient Instructions: Antibiotic Form Patient Language: Malagasy Stand Alone Forms: General Discharge Information Follow-up/Referrals: Jonathan Herbert MD [Physician] - Call for Appointment Neha,MEENU Bro [Primary Care Provider] - 1 Week Discharge Medications: New metronidazole 500 mg Tablet 500 mg PO Q8HR Qty: 30 0RF doxycycline hyclate 100 mg capsule 100 mg PO Q12H Qty: 20 0RF ciprofloxacin HCl 500 mg tablet 500 mg PO BID Qty: 20 0RF Rx Instructions: administer within 120 minutes prior to surgical incision Continued buprenorphine-naloxone 4-1 mg film 1 film sublingual DAILY carvedilol 6.25 mg tablet 6.25 mg PO BIDWMEAL clonidine HCl 0.1 mg tablet 0.1 mg PO BID hydroxyzine HCl 50 mg tablet 50 mg PO HS PRN (Reason: insomnia) escitalopram oxalate 10 mg tablet 20 mg PO DAILY Date of admission: 04/03/25 22:58 Primary Care Provider: Neha,Adali Admitting Provider: Gilson Lao Attending physician on admission: Clover Maldonado Condition: Stable Care Plan Goals: 1)follow with PCP in one week 2) warm moist compresses BID dorsum of hand 3) light jose wrap compression and elevation 4) f/u plastics surgery - discussed possible OT if stiffness not improving 5)quit drugs abuse
[2025-04-06 11:47] LABS: Vancomycin Trough 18.4 ug/mL (10.0-20.0)
== END 2025-04-06 11:54 | disposition home or self-care (01) | DRG 603 ==
LOC: ANHED 22:56 → ANHIMU 04-04 00:14
PROVIDERS: Admitting Provider General Practice; Emergency Provider Emergency Medicine; PCP Physician Assistant; Visit Provider Internal Medicine
DX: L03.113 Cellulitis of right upper limb (principal); M65.831 Other synovitis and tenosynovitis, right forearm; M65.841 Other synovitis and tenosynovitis, right hand; F11.10 Opioid abuse, uncomplicated; F12.90 Cannabis use, unspecified, uncomplicated; F41.9 Anxiety disorder, unspecified; F15.10 Other stimulant abuse, uncomplicated; F17.290 Nicotine dependence, other tobacco product, uncomplicated
CPT/HCPCS: 36415; 73130; 73201; 73220; 80048; 80053; 80202; 80307; 82077; 82550; 82565; 83605; 84145; 85025; 85652; 86140; 86593; 86703; 86706; 87040; 87181; 87641; 96361; 96365; 96367; 99285; A9270; A9579; G0432; J0692; J1650; J2060; J2405; J2543; J3370; J7030; J7120; Q9967